=== PATIENT | male | born 1980 | race Caucasian/White ===

== ENCOUNTER → 2019-12-27 14:20 | Outpatient (BNVA) | payer MEDICARE, MEDICAID, SELFPAY | PROVIDERS: PCP Internal Medicine; Referring Provider Internal Medicine; Visit Provider Internal Medicine Endocrinology, Diabetes & Metabolism | DX: E66.01 Morbid (severe) obesity due to excess calories (principal); Z68.41 Body mass index [BMI] 40.0-44.9, adult; E23.0 Hypopituitarism; N62 Hypertrophy of breast; R73.03 Prediabetes; I10 Essential (primary) hypertension; E78.1 Pure hyperglyceridemia; Z71.3 Dietary counseling and surveillance | CPT/HCPCS: 99214 ==

== ENCOUNTER → 2020-01-04 09:52 | Outpatient (BNVA) | payer MEDICARE, MEDICAID, SELFPAY | PROVIDERS: PCP Internal Medicine; Referring Provider Internal Medicine; Visit Provider Orthopaedic Surgery | DX: M17.0 Bilateral primary osteoarthritis of knee (principal) | CPT/HCPCS: 20610; 99212; J1040 ==

== ENCOUNTER → 2020-01-23 10:26 | Outpatient (BNVA) | payer MEDICARE, MEDICAID, SELFPAY | PROVIDERS: PCP Internal Medicine; Referring Provider Internal Medicine; Visit Provider Dietitian, Registered | DX: Z76.89 Persons encountering health services in other specified circumstances (principal) ==

== ENCOUNTER 2020-02-26 06:35 | Emergency (ER) | payer MEDICARE, MEDICAID, SELFPAY ==
[2020-02-26 06:37] VITALS: BP 159/81; PULSE 108; RESP 18; TEMP 37.1; BMI 41.5
--- NOTE | 2020-02-26 06:42 | ED_ITS ---
HPI - Chest Pain General Chief Complaint: Back Pain/Injury Stated Complaint: rib injury Time Seen by Provider: 02/26/20 06:41 Source: patient Mode of arrival: ambulatory Limitations: no limitations History of Present Illness MD complaint: other (L sided rib pain after fall during snow storm) Onset (ago): day(s) (3) Timing of current episode: constant Prior episodes: No Onset: other (slipped during snow) Pain location: left chest Pain radiation: none Severity: moderate Quality: aching and sharp Relieving factors: nothing Exacerbating factors: inspiration and movement Context: trauma/injury Treatment prior to arrival: none Related Data Home Medications Medication Instructions Recorded Confirmed dolutegravir 50 mg tablet 50 mg PO DAILY 12/27/19 01/16/20 emtricitabine 200 mg-tenofovir 1 tab PO DAILY 12/27/19 01/16/20 alafenamide fumarate 25 mg tablet methadone 10 mg/mL oral concentrate 130 mg PO DAILY ml 12/27/19 01/16/20 Previous Rx's Medication Instructions Recorded hydrochlorothiazide 12.5 mg tablet 12.5 mg PO DAILY 30 Days #30 tab 12/27/19 omega-3 fatty acids 1,000 mg 1,000 mg PO BID 30 Days #60 cap 12/27/19 capsule gabapentin 300 mg capsule 300 mg PO BID #60 cap 01/20/20 sumatriptan succinate 50 mg tablet 50 mg PO Q2-4H PRN 30 Days #30 tab 01/20/20 acetaminophen 500 mg tablet 1,000 mg PO Q8H PRN #180 tab 02/01/20 diclofenac sodium 75 mg 75 mg PO BID PRN 15 Days #30 tab 02/13/20 tablet,delayed release amoxicillin-pot clavulanate 1 tab PO BID 7 Days #14 tab 02/26/20 [Augmentin] cyclobenzaprine 10 mg PO TID PRN #14 tab 02/26/20 ibuprofen 600 mg PO Q6H PRN #30 tab 02/26/20 lidocaine 1 patch TOPICAL DAILY PRN #10 ea 02/26/20 oxycodone 5 mg PO Q8H PRN #14 tab 02/26/20 Allergies Allergy/AdvReac Type Severity Reaction Status Date / Time RAISIN Allergy Severe SWELLING,HI Uncoded 02/26/20 06:51 VES Review of Systems Review of Systems: Constitutional : No Weight loss, No Fever, No Chills ENT/Mouth : No sore throat, No Rhinorrhea Eyes: No Eye Pain, No Swelling Cardiovascular : pos Chest Pain, no SOB, no Dyspnea on Exertion, No Orthopnea, No Edema, No Palpitations Respiratory : No Cough, No Sputum Gastrointestinal : pos Nausea, No Vomiting, No Diarrhea, No abdominal Pain, No Hematochezia, No Melena Genitourinary : No Dysuria, No Urinary Frequency Musculoskeletal : No joint pain, No Myalgias, No Joint Swelling Skin : No Skin Lesions, No rash Neuro : No Weakness, No Numbness, No Dizziness, No Headache Psych : No Anxiety/Panic, No Depression Heme/Lymph: No Bruising, No Lymphadenopathy Endocrine : No Polyuria, No Polydipsia All other systems reviewed and are negative [facility] Past Medical History Attestation statement: The following information was validated with the patient. Medical History Fatty liver disease, nonalcoholic Gynecomastia, male HIV positive Hypertension Hypertriglyceridemia Hypogonadotropic hypogonadism in male Morbid obesity Opioid dependence Osteoarthritis Prediabetes Surgical History History of ankle surgery History of arthroscopy of left knee History of open reduction and internal fixation (ORIF) procedure Hx of knee surgery Family History Family History Father HIV (human immunodeficiency virus infection) Mother Diabetes Glaucoma Social History Social History Smoking Status: Current every day smoker Tobacco Type: Cigarette Packs Per Day: 0.5 Cigarettes Per Day: 10.0 Years Smoked: 22 years Advance Directives: No Advance Directives Information Provided: Yes Physical Exam Vital Signs: Vital Signs: Last Vital Signs Temp 98.8 F 02/26/20 06:37 Pulse 108 H 02/26/20 06:37 Resp 18 02/26/20 06:37 BP 159/81 H 02/26/20 06:37 Body Mass Index 41.5 Appearance: Alert. Oriented X3. No acute distress. Eyes: Pupils equal, round and reactive to light. ENT: Pharynx normal. Neck: Normal inspection. Neck supple. CVS: Normal heart rate and rhythm. Pulses normal. Chest: ttp along L lateral posterior ribs no trauma seen Respiratory: No respiratory distress. Breath sounds normal. Abdomen: Soft and nontender. obese no trauma seen Back: ttp left lower back above hip line Skin: Skin warm and dry. Normal skin color. Normal skin turgor. Extremities: No lower extremity edema. No calf ttp Neuro: Oriented X 3. No motor deficit. No sensory deficit. Course Course Course Narrative: 3 left rib fractures, mild atelectasis will add on pain medications and start on augmentin for possible start of infiltrate MDM - Chest Pain MDM Narrative Medical decision making narrative: 39 yo male not toxic no resp distress here with L rib pain following slip in snow also some mild L lower back pain no GI/ issues, at this time will need rib xray, lumbar spine films, lidocaine patch and supportive medications, dispo per results and findings. Discharge Plan Discharge Clinical Impression: Contusion of rib on left side Qualifiers: Encounter type: initial encounter Qualified Code(s): S20.212A - Contusion of left front wall of thorax, initial encounter Fracture of rib of left side Qualifiers: Encounter type: initial encounter Rib fracture type: multiple ribs Fracture type: closed Qualified Code(s): S22.42XA - Multiple fractures of ribs, left side, initial encounter for closed fracture Patient Disposition: Home, Self-Care Instructions: Rib Fracture (ED), Rib Contusion (ED) Additional Instructions: return to ED for any worsening symptoms or concerns take deep breaths at this time despite pain there is a small area on left lung with fluid will start on antibiotics so pneumonia does not develop Prescriptions: New cyclobenzaprine 10 mg tablet 10 mg PO TID PRN (Reason: muscle spasm) Qty: 14 RF: 0 lidocaine 4 % adhesive patch,medicated 1 patch topical DAILY PRN (Reason: pain) Qty: 10 RF: 0 ibuprofen 600 mg tablet 600 mg PO Q6H PRN (Reason: pain) Qty: 30 RF: 0 amoxicillin-pot clavulanate [Augmentin] 875-125 mg tablet 1 tab PO BID 7 Days Qty: 14 RF: 0 oxycodone 5 mg tablet 5 mg PO Q8H PRN (Reason: pain) Qty: 14 RF: 0 No Action sumatriptan succinate 50 mg tablet 50 mg PO Q2-4H PRN (Reason: migraine headache) 30 Days Qty: 30 RF: 0 gabapentin 300 mg capsule 300 mg PO BID Qty: 60 RF: 0 acetaminophen 500 mg tablet 1,000 mg PO Q8H PRN (Reason: fever or pain) Qty: 180 RF: 1 diclofenac sodium 75 mg tablet,delayed release (DR/EC) 75 mg PO BID PRN (Reason: pain) 15 Days Qty: 30 RF: 0 Tivicay 50 mg tablet 50 mg PO DAILY RF: 0 Descovy 200-25 mg tablet 1 tab PO DAILY RF: 0 methadone 10 mg/mL concentrate 130 mg PO DAILY RF: 0 hydrochlorothiazide 12.5 mg tablet 12.5 mg PO DAILY 30 Days Qty: 30 RF: 4 omega-3 fatty acids 1,000 mg capsule 1,000 mg PO BID 30 Days Qty: 60 RF: 4 Referrals: Hiram Romero MD [Primary Care Provider] - 3 days (if not better) Stand Alone Forms: Work/School Release
--- NOTE | 2020-02-26 06:52 | XR_ITS ---
EXAMINATION: XR RIBS, LEFT CLINICAL INFORMATION: Fall pain COMPARISON: No prior exam available. TECHNIQUE: Chest frontal, 5 view left rib series. FINDINGS: RIBS: Mildly displaced fractures of the left lateral seventh, eighth and ninth ribs. LUNGS AND ANSHU: Mild opacity probably infiltrate or atelectasis at left lung base adjacent to the fractures. PLEURA: Normal. Costophrenic angles are sharp, no pneumothorax. HEART: The heart is normal in size. MEDIASTINUM: The mediastinum is within normal limits.. XR/XR ribs LT min 3V w CXR1V IMPRESSION: 1. Minimally displaced fracture of the anterior lateral aspect of the left seventh, eighth and ninth rib. 2. Adjacent mild infiltrate and/or atelectasis left lung base. 3. No pneumothorax.
--- NOTE | 2020-02-26 06:52 | XR_ITS ---
EXAMINATION: XR LUMBAR SPINE CLINICAL INFORMATION: Fall COMPARISON: None TECHNIQUE: Frontal lateral and coned-down L5-S1 frontal lateral FINDINGS: Five [id number] lumbar vertebrae were identified maintaining normal height and alignments. Narrowing of intervertebral disc spaces suggest underlying degenerative disc disease. Paravertebral soft tissues are unremarkable. There are radiolucencies, most likely superimposed bowel gas.. No radiographic evidence of osteolytic or osteoblastic lesions. XR/XR lumbar spine 2-3V IMPRESSION: No fracture. Bone alignments remain satisfactory. Narrowing of intervertebral disc spaces suggest underlying degenerative disc disease. .
[2020-02-26] MEDS: diazePAM 5 MG TABLET PO (07:32)
[2020-02-26] MEDS: Lidocaine 4 % Patch ADH..PATCH 1 PATCH TRANSDERMA ×2 (07:32→07:42)
== END 2020-02-26 08:08 | disposition home or self-care (01) ==
PROVIDERS: Emergency Provider Emergency Medicine; PCP Internal Medicine
DX: S22.32XA Fracture of one rib, left side, initial encounter for closed fracture (principal); S20.212A Contusion of left front wall of thorax, initial encounter; W00.0XXA Fall on same level due to ice and snow, initial encounter; I10 Essential (primary) hypertension; F11.20 Opioid dependence, uncomplicated; Y93.9 Activity, unspecified; Y92.017 Garden or yard in single-family (private) house as the place of occurrence of the external cause; Y99.9 Unspecified external cause status
CPT/HCPCS: 71101; 72100; 99283

== ENCOUNTER 2020-03-16 16:03 | Outpatient (REF) | payer OTHER, MEDICAID, SELFPAY | END 2020-03-16 16:04 | disposition home or self-care (01) | LOC: HO.LAB 16:03 | PROVIDERS: Visit Provider Internal Medicine | DX: Z20.822 Contact with and (suspected) exposure to COVID-19 (principal) | CPT/HCPCS: 36415; C9803; U0003 ==

== ENCOUNTER → 2020-04-20 13:01 | Outpatient (BNVA) | payer OTHER, MEDICARE, SELFPAY | PROVIDERS: PCP Internal Medicine; Visit Provider Nurse Practitioner | DX: Z76.89 Persons encountering health services in other specified circumstances (principal) | CPT/HCPCS: Q3014 ==

== ENCOUNTER 2020-06-06 10:04 | Outpatient (REF) | payer OTHER, SELFPAY ==
--- NOTE | ~2020-06-06 | US_ITS ---
EXAMINATION: US COMPLETE ABDOMEN WITH LIVER ELASTOGRAPHY CLINICAL INFORMATION: Viral hepatitis C COMPARISON: Previous exam most recent September 2019 TECHNIQUE: Real-time imaging of the abdominal viscera. Noninvasive ultrasound liver fibrosis assessment is performed using [employer] ElastPQ point quantification shear wave elastography (pSWE) with a C5-2 MHz transducer. Multiple elastography samples are obtained. FINDINGS: PANCREAS: The visualized pancreatic head and body are normal in appearance. The remainder of the pancreas is obscured from visualization by the overlying bowel gas. ABDOMINAL AORTA: The proximal, middle, and distal aortic segments are normal in caliber. INFERIOR VENA CAVA: Visualized portions are normal. LIVER: Liver echotexture is increased. The liver is slightly enlarged. Liver contour is normal. No focal liver lesion or biliary duct dilatation is seen.. The right lobe measures 21 cm in length. The left lobe measures 16 cm in length. Portal flow is maintained portal vein is patent with appropriate hepatopedal flow. Shear wave liver elastography median stiffness is 1.35 m/s (reference: normal median stiffness is 1.3 m/s or less). IQR/median stiffness to assess sampling precision is 0.3 (reference: good quality data set is IQR/median stiffness of 0.15 or less). GALLBLADDER: There are small gallstones in the gallbladder. The gallbladder wall is normal-appearing. The gallbladder is normal in size. COMMON BILE DUCT: Normal in caliber measuring 0.5, 0.8 cm in diameter. RIGHT KIDNEY: Normal. No hydronephrosis. No renal calculi or focal parenchymal lesions. The kidney measures 11.5 cm in maximum dimension. LEFT KIDNEY: Normal. No hydronephrosis. No renal calculi or focal parenchymal lesions. The kidney measures 12.1 cm in maximum dimension. SPLEEN: Spleen is slightly enlarged. The spleen measures 13 cm in maximum dimension. FREE FLUID: None. US/US abdomen comp w elastography IMPRESSION: 1. Impression: Enlarged echogenic liver similar to previous exam. Gallstones. Prominent spleen. Limited visualization of the tail the pancreas. 2. Liver elastography: Limited due to sampling error. Liver stiffness is minimally elevated but rules out compensated advanced chronic liver disease. REFERENCE: Society of Radiologists in Ultrasound Liver Stiffness Thresholds (2020): LIVER STIFFNESS THRESHOLDS: *Liver Stiffness equal or less than 1.3 m/s: High probability of being normal. *Liver Stiffness less than 1.7 m/s: In the absence of other known clinical signs, rules out compensated advanced chronic liver disease. *Liver Stiffness 1.7-2.1 m/s: Suggestive of compensated advanced chronic liver disease but need further test for confirmation. *Liver Stiffness over 2.1 m/s: Rules in compensated advanced chronic liver disease. *Liver Stiffness over 2.4 m/s: Suggestive of clinically significant portal hypertension. QUALITY OF DATA SET: *IQR/Median value equal or less than 0.15 implies a quality data set. *IQR/Median value over 0.15 implies a poor quality data set. SIGNIFICANT CHANGE FROM PRIOR EXAM: Significant change if liver stiffness measurement is 10% or greater from prior exam. OTHER CONSIDERATIONS: The stage of liver fibrosis may be overestimated in the setting of acute hepatitis, liver inflammation, elevated liver function tests, hepatic vascular congestion, obstructive cholestasis, non-fasting state, and infiltrative diseases such as amyloidosis and lymphoma. In some patients with NAFLD, the liver stiffness thresholds for compensated advanced chronic liver disease may be lower. In causes other than viral hepatitis and NAFLD, liver stiffness thresholds are not well established.
--- NOTE | 2021-05-19 14:44 | PM.DS ---
DS: Providers Provider Date of Service: 07/03/20 Attending physician on discharge: Mark Damian Discharging clinician: Mark Damian DS: Transfer Hospital Acceptance Reason for Transfer: Advanced surgical care Name of Facility: [facility] Accepting Provider: Dr. Tomlinson DS: Summary Hospital Course Hospital Course: TRANSFER SUMMARY DISCHARGE DIAGNOSES: 1. DKA. 2. Hypertriglyceridemia. 3. Pancreatitis. 4. MATT. 5. Metabolic acidosis. Mr. Lama is a 40-year-old male with a past medical history of? prediabetes, HIV, hepatitis-C,? hypertension, hypertriglyceridemia, opiate dependence, NENO, and morbid obesity.? He was BIBA to the [facility] on 07/02/2020 bec of nausea and vomiting for the prior 2-3 days, and altered mental status that morning. In the emergency room, the patient was noted to be lethargic and delirious, tachypneic with Kussmaul respirations.? He was hypothermic to 92?.? His abdomen was soft, nondistended, moderately tender, but no guarding or rebound. Labs were notable for WBC 21, Na 118, K 54, bicarb <5, BUN/creat 25/2.5, gluc 1074, Ca 7.9, unremarkable LFTs, alk phos 155, alb 3.3. lipase 165, Triglycerides.? VBG showed pH 6.91, pCO2 9, BE -28.? COVID negative The patient was vol resuscitated, given insulin and a dose of Zosyn, and admitted to ICU, where vol resusc and the insulin drip continued.? Over the day, his glucose levels and bicarb corrected very slowly.? That night, his bicarb was only up to 7, his POC was down to the 200 level still on insulin drip at 10u/hr.? BUN/creat were down to 23/1.1.? He was still very tachypneic.? His abdomen became more distended and tender.? Noncontrast CT abdomen at 2am the following morning showed diffuse small bowel wall thickening, w diffuse stranding of the mesenteric fat.? Small amount of free fluid.? The patient was started on a bicarb drip and meropenem. That morning, he was more tachypneic, and was therefore intubated.? He was still tachypneic on the ventilator, despite high dose fentanyl and propofol drips.? Post-intubation, heart rate was 112, blood pressure is 135/75.? On pressure control at a rate of 28, pressures 22/12, 70%, respiratory rate was 43, tidal volume 430 cc, minute volume 19 L, peak inspiratory pressure 35, endtidal CO2 21, and sat 91%.? His temperature was 101.1 degrees.? No jugular venous distention with the head of the bed at 30 degrees.? Chest was clear to auscultation, with a normal expiratory phase heart rate and rhythm were regular, with normal-sounding S1 and S2, with no murmur or gallops.? The abdomen was significantly distended, a bit firm, and very tender.? Definite guarding, even through the propofol and fentanyl.? No bowel sounds.? The OG tube was draining green bilious fluid with a few coffee-grounds.? He had no peripheral edema. LABORATORY DATA:? White count that morning was 6.7, hemoglobin 12.5 (down from 15.8 on admission), platelet count 136 (down from 312).? At 11:00, sodium was 146, potassium 2.5, chloride 113, bicarb 18, BUN and creatinine 19/1.3, glucose 235, calcium 7.9.? Last lipase at 05:00 was 483, triglycerides were 794, albumin was 3.0, C reactive protein was 18, and procalcitonin was 4.6. The patient was seen by Dr. Miller, our general surgeon, who felt that there was no indication for surgery at that time, and recommended a follow-up CT scan at 24 hours if necessary. Given that the abdomen was increasingly distended and tender, it was thought he might need surgical exploration.? The patient was discussed with Dr. Tomlinson from [facility] surgery, and the patient was transferred there to his care. Time Spent with Patient Time attestation: Total time spent providing and/or coordinating discharge services: Discharge coordination time: Less than 30 minutes Quality: Stroke Does the patient have a stroke diagnosis?: No DS: Data Data Completed and Pending Completed studies during hospitalization [Text1]: Procedures Insertion of Endotracheal Airway into Trachea, Via Natural or Artificial Opening Endoscopic (07/02/20) Insertion of Infusion Device into Superior Vena Cava, Percutaneous Approach (07/02/20) Respiratory Ventilation, Less than 24 Consecutive Hours (07/02/20) Discharge Plan Discharge Patient Disposition: Home, Self-Care Discharge Medications: No Action lidocaine 4 % cream 1 appl topical TID PRN (Reason: pain) 30 Days Qty: 50 2RF Rx Instructions: as needed Externally Three times a day (DME) blood-glucose meter [FreeStyle Lite Meter] Kit See Rx Instructions .ROUTE .MEDSUPPLY Qty: 1 0RF Rx Instructions: TEST 2 TIMES DAILY hydrochlorothiazide 12.5 mg tablet 12.5 mg PO DAILY 30 Days Qty: 30 1RF FreeStyle Lite Strips Strip 1 strip miscellaneous BID Qty: 100 0RF lancets [FreeStyle Lancets] 28 gauge misc 28 gauge topical BID Qty: 100 0RF sertraline 100 mg tablet 100 mg PO DAILY Qty: 30 2RF diclofenac sodium 75 mg tablet,delayed release (DR/EC) 75 mg PO BID PRN (Reason: for pain) Qty: 30 2RF gabapentin 300 mg capsule 300 mg PO TID Qty: 90 2RF Tivicay 50 mg tablet 1 tab PO DAILY 0RF Descovy 200-25 mg tablet 1 tab PO DAILY 0RF Discharge Date/Time: 06/06/20 10:05
== END 2020-06-06 10:05 | disposition home or self-care (01) ==
LOC: HO.US 10:04
PROVIDERS: Visit Provider Nurse Practitioner
DX: B19.20 Unspecified viral hepatitis C without hepatic coma (principal); K75.81 Nonalcoholic steatohepatitis (NASH)
CPT/HCPCS: 76705; 76981

== ENCOUNTER → 2020-06-18 10:48 | Outpatient (BNVA) | payer OTHER, SELFPAY | PROVIDERS: PCP Internal Medicine; Visit Provider Nurse Practitioner ==

== ENCOUNTER 2020-07-02 03:17 | Inpatient (IN) | payer OTHER, SELFPAY ==
[2020-07-02] VITALS (24 sets, daily range): BP systolic 90–115; BP diastolic 36–69; PULSE 82–110; RESP 15–40; TEMP 33.5–38.1; O2SAT 94–100; BMI 36.8; BMI 37.3
--- NOTE | ~2020-07-02 | XR_ITS ---
EXAMINATION: XR CHEST CLINICAL INFORMATION: tube placement COMPARISON: Chest x-ray earlier this morning at 1:42 AM TECHNIQUE: Frontal view of the chest was obtained. FINDINGS: Endotracheal tube terminates approximately 1.3 cm above the level of the alisha. Enteric tube terminates below level of the diaphragm. Right-sided jugular catheter is able in position. Patchy bilateral airspace disease is stable, most prominent within the right lung base. No pneumothorax is present. No pleural effusion. XR/XR chest 1V IMPRESSION: -Endotracheal tube terminates approximately 1.3 cm above the level of the alisha. Retracting approximately 2.5 to 3 cm is recommended. -Stable patchy bilateral airspace disease.
--- NOTE | ~2020-07-02 | CT_ITS ---
EXAMINATION: CT ABDOMEN AND PELVIS WITHOUT CONTRAST CLINICAL INFORMATION: Question ischemic bowel COMPARISON: None TECHNIQUE: Multidetector volumetric imaging was performed from the superior aspect of the liver through the pubic symphysis. Sagittal and coronal reformatted images were obtained on the technologist's workstation. This CT examination was performed using dose optimization techniques as appropriate, variously including the following: *Automated exposure control *Adjustment of mA and/or kV according to patient size (this includes techniques or standardized protocols for targeted exams where dose is matched to indication/reason for exam; i.e. extremities or head) *Use of iterative reconstruction technique DLP: 1080 mGy-cm FINDINGS: LUNG BASES: Patchy airspace opacities are seen at both lung bases, corresponding to the appearance on recent prior chest radiograph. LIVER, GALLBLADDER, AND BILIARY TREE: The liver is normal in size, shape, and attenuation. No focal hepatic lesion or biliary ductal dilatation is present. Small volume ascites. Cholelithiasis. No gallbladder wall thickening or pericholecystic fluid. PANCREAS: Unremarkable. SPLEEN: Unremarkable. ADRENAL GLANDS: Unremarkable. KIDNEYS AND URETERS: The kidneys are normal in size, shape, and attenuation. No hydronephrosis, hydroureter, or calculi seen. No perinephric stranding. BLADDER: Decompressed with Archuleta catheter in place. GASTROINTESTINAL TRACT: Motion limits the evaluation of the bowel. The stomach is unremarkable. Normal caliber small bowel. There is wall thickening of the jejunum. Mild stranding of the fat in this region. Fecalization of the distal ileum noted. There is also mild wall thickening with adjacent stranding of portions of the ileum, for instance series 7 image 33 in the right abdomen. Much of the colon is decompressed. Small amount of free fluid. No free air. No pneumatosis. Normal appendix. ABDOMINAL WALL: No significant hernia is appreciated. LYMPH NODES: Normal. VASCULAR: The aorta is normal in caliber. No significant atherosclerotic calcific disease. PELVIC VISCERA: The prostate and seminal vesicles are unremarkable. OSSEOUS STRUCTURES: Unremarkable. CT/CT abdomen pelvis wo con IMPRESSION: Motion limited evaluation. There does appear to be wall thickening of the small bowel fairly diffusely. There is diffuse stranding of the mesenteric fat. Small amount of free fluid. This appearance is highly suspicious for enteritis, although the etiology is nonspecific. This could be infectious, inflammatory, or ischemic. Of note, no significant vascular disease, aching ischemic less likely, though this depends on the clinical scenario. Patchy airspace opacities at both lung bases. This corresponds to the appearance on recent radiograph.
--- NOTE | ~2020-07-02 | XR_ITS ---
EXAMINATION: XR CHEST CLINICAL INFORMATION: Central line placement verification. COMPARISON: 02/26/2020 TECHNIQUE: Frontal view of the chest was obtained. FINDINGS: Right internal jugular central venous catheter terminates near the cavoatrial junction. Cardiac leads overlie the chest. The lungs are well expanded. Bronchial wall thickening with patchy opacities bilaterally, greatest at the lung bases. No pleural effusion or pneumothorax. The cardiomediastinal silhouette is within normal limits. XR/XR chest 1V IMPRESSION: Right internal jugular central venous catheter terminates near the cavoatrial junction. No pneumothorax. Patchy bilateral airspace opacities greatest at the lung bases associated with bronchial wall thickening. This could be infectious or inflammatory.
--- NOTE | 2020-07-02 03:19 | ECG_ITS ---
Test Reason : DKA Blood Pressure : / mmHG Vent. Rate : 085 BPM Atrial Rate : 085 BPM P-R Int : 166 ms QRS Dur : 086 ms QT Int : 450 ms P-R-T Axes : 077 052 047 degrees QTc Int : 535 ms Normal sinus rhythm Biatrial enlargement Prolonged QT Abnormal ECG When compared with ECG of 28-AUG-2014 16:13, QT has lengthened Referred By: Sabiha Clements Electronically Signed By:SONNY BOYD MD
--- NOTE | 2020-07-02 03:21 | ED_ITS ---
HPI - General Adult General Chief complaint: General Medical Stated complaint: HYPERGLYCEMIA N/V/D Time Seen by Provider: 07/02/20 03:19 Source: patient and EMS Mode of arrival: EMS History of Present Illness HPI narrative: 40-year-old male previously caring diagnosis of prediabetes being brought in by EMS for 2-3 days of nausea vomiting and diarrhea. Family otherwise poor historian and on initial arrival patient groaning with kussmal b reathing. Otherwise, limited collateral information. Related Data Home Medications Medication Instructions Recorded Confirmed acetaminophen 500 mg PO QID PRN MDD 3000 07/02/20 07/02/20 diclofenac sodium 1 tab PO BID 07/02/20 07/02/20 dolutegravir [Tivicay] 1 tab PO DAILY 07/02/20 07/02/20 emtricitabine-tenofovir alafen 1 tab PO DAILY 07/02/20 07/02/20 [Descovy] gabapentin 300 mg PO DAILY 07/02/20 07/02/20 hydrochlorothiazide 1 tab PO DAILY 07/02/20 07/02/20 lidocaine 1 appl TOPICAL ONCE PRN 07/02/20 07/02/20 sertraline 1 tab PO DAILY 07/02/20 07/02/20 sumatriptan succinate 50 mg PO DAILY PRN 07/02/20 07/02/20 Allergies Allergy/AdvReac Type Severity Reaction Status Date / Time RAISIN Allergy Severe SWELLING,HI Uncoded 06/11/20 18:47 VES Review of Systems Review of Systems: Yes Unobtainable due to mental condition PMFSH Past Medical History Source: nursing notes reviewed Medical History Anxiety and depression Benign essential hypertension Encounter for Medicare annual wellness exam Fracture of multiple ribs of left side Gynecomastia, male HIV positive Hypertension Hypertriglyceridemia Hypogonadotropic hypogonadism in male Morbid obesity Muscle twitching Obesity (BMI 30-39.9) Obstructive sleep apnea Opioid dependence Osteoarthritis Prediabetes Surgical History History of ankle surgery History of arthroscopy of left knee History of open reduction and internal fixation (ORIF) procedure Hx of knee surgery Family History Family History Father HIV (human immunodeficiency virus infection) Mother Diabetes Glaucoma Social History Social History Household Members: Spouse and Children Alcohol intake: current Alcohol intake frequency: 0-2 drinks per day Smoking Status: Current every day smoker Tobacco Type: Cigarette Packs Per Day: 0.5 Cigarettes Per Day: 10.0 Years Smoked: 22 years Smoked in Last 30 Days: Yes Use of substances other than those prescribed or required for medical reasons: Refusing to respond Any prior treatment program specific to substance use: No Advance Directives: No Advance Directives Information Provided: No Current occupational status: disabled Physical Exam Vital Signs: Vital Signs: Last Vital Signs Temp 92.3 F L 07/02/20 04:45 Pulse 82 07/02/20 04:45 Resp 28 H 07/02/20 04:45 BP 112/52 L 07/02/20 04:45 Pulse Ox 98 07/02/20 04:45 Body Mass Index 36.8 VITAL SIGNS: Reviewed. GENERAL: Chronically ill, moderate distress. HEAD: Normocephalic/atraumatic EYES: PERRLA, EOMI OROPHARYNX: no oral lesions noted, posterior pharynx clear, dry mucosa NECK: Supple, no adenopathy LUNGS: Normal breath sounds, tachypnea (kussmal). SpO2<98> CARDIOVASCULAR: Regular rate and rhythm without noted murmurs ABDOMEN: Soft, non-tender, non-distended hypoactive bowel sounds. MUSCULOSKELETAL: No tenderness, deformities, or effusions noted on gross inspection. EXTREMITIES: No cyanosis, clubbing or edema. SKIN: Inspection of the skin reveals no rashes NEUROLOGIC: Lethargic Course Course Course Narrative: 40-year-old male with history and clinical presentation consistent with DKA and will evaluate for possible infectious source. - Patient received total of 4 L of normal saline, IV Push bicarb for pH-6.9, and on receipt of potassium levels patient received calcium gluconate, 10 units regular insulin IVP followed by insulin drip. - on review of all investigations although leukocytosis is likely secondary to profound dehydration patient received empiric antibiotics, and although lactic acid is noted this again is likely secondary to DKA as opposed to infectious. On re-evaluation patient is noted to have improved mentation and is verbally communicating with nursing staff as well as myself. In addition, patient's respiratory rate has significantly improved. This case was discussed with the stationary fireman who is accepting admission. Medical Decision Making Lab Data Result diagrams: 07/02/20 03:49 07/02/20 03:48 Labs: Lab Results 07/02/20 07/02/20 07/02/20 Range/Units 03:48 03:49 03:49 WBC 21.1 H (4.8-10.8) X10*3/uL RBC 4.75 (4.60-5.80) X10*6/uL Hgb 15.8 (14.0-18.0) g/dl Hct 49.6 (42-52) % MCV 104.4 H (80-98) fL MCH 33.3 H (27.0-33.0) pg MCHC 31.9 (31.0-36.0) g/dl RDW 12.5 (11.0-16.0) % Plt Count 312 (160-400) X10*3/uL MPV 11.5 (9.4-12.4) fL Immature Gran % (Auto) Cancelled Neut % (Auto) Cancelled Lymph % (Auto) Cancelled [place] % (Auto) Cancelled Eos % (Auto) Cancelled Baso % (Auto) Cancelled Lymph # (Auto) Cancelled [place] # (Auto) Cancelled Eos # (Auto) Cancelled Baso # (Auto) Cancelled Abs Immat Gran (auto) Cancelled Absolute Neuts (auto) Cancelled Absolute Nucleated RBC 0.000 (0.0-0.012) X10*3/uL Nucleated RBC % (auto) 0.0 (0.0-0.2) /100WBC Neutrophils % (Manual) 83 H (45-73) % Band Neutrophils % 8 H (3-5) % Lymphocytes % (Manual) 4 L (20-40) % Monocytes % (Manual) 5 (2-11) % Abs Neuts (Manual) 19.2 H (2.2-7.9) X10*3/uL Lymphocytes # (Manual) 0.8 (0.6-4.8) X10*3/uL Monocytes # (Manual) 1.1 (0.0-1.2) X10*3/uL Platelet Estimate NORMAL (NORMAL) Plt Morphology Comment NORMAL RBC Morphology NOTED Macrocytosis 1+ (5-14) /OIF VBG pH (7.32-7.43) VBG pCO2 mmHg VBG pO2 mmHg VBG HCO3 (22-26) mmol/L VBG O2 Saturation % VBG Base Excess mmol/L Sodium 118 L* (135-145) mmol/L Potassium 5.4 H (3.3-5.1) mmol/L Chloride 88 L (96-108) mmol/L Carbon Dioxide < 5 L* (22-29) mmol/L Anion Gap 30 H (12-20) BUN 25 H (9-16) mg/dL Creatinine 2.48 H (0.5-1.4) mg/dL Estim Creat Clear Calc 44.6 Estimated GFR 29 Random Glucose 1074 H* (60-115) mg/dL Lactic Acid (0.5-2.0) mmol/L Calcium 7.9 L (8.4-10.2) mg/dL Magnesium 2.6 (1.6-2.6) mg/dL Total Bilirubin 0.8 (0.0-1.0) mg/dL AST 28 (5-37) U/L ALT 44 H (0-40) U/L Alkaline Phosphatase 155 H (39-117) U/L Total Protein 7.4 (6.5-8.0) g/dL Albumin 3.3 L (3.5-5.0) g/dL Lipase 165 H (8-78) U/L Urine Color Urine Appearance Urine pH (5.0-8.0) Ur Specific [place] (1.005-1.025) Urine Protein (NEG-TRACE) MG/DL Urine Glucose (UA) (NEG) MG/DL Urine Ketones (NEG) MG/DL Urine Blood (NEG) Urine Nitrite (NEG) Ur Leukocyte Esterase (NEG) Urine RBC (0) /HPF Urine WBC (0-4) /HPF Ur Squamous Epith Cells /LPF Amorphous Sediment /LPF Urine Bacteria /LPF Granular Casts /LPF Urine Mucus /LPF Urine Opiates Screen (Not Detect) Ur Barbiturates Screen (Not Detect) Ur Phencyclidine Scrn (Not Detect) Ur Amphetamines Screen (Not Detect) U Benzodiazepines Scrn (Not Detect) Urine Cocaine Screen (Not Detect) U Marijuana (THC) Screen (Not Detect) Acetone, Qual Moderate H (Negative) COVID-19 ([facility]KOLAS) Negative (Negative) COVID-19 Clin Com See Note 07/02/20 07/02/20 07/02/20 Range/Units 03:51 04:04 04:37 WBC (4.8-10.8) X10*3/uL RBC (4.60-5.80) X10*6/uL Hgb (14.0-18.0) g/dl Hct (42-52) % MCV (80-98) fL MCH (27.0-33.0) pg MCHC (31.0-36.0) g/dl RDW (11.0-16.0) % Plt Count (160-400) X10*3/uL MPV (9.4-12.4) fL Immature Gran % (Auto) Neut % (Auto) Lymph % (Auto) [place] % (Auto) Eos % (Auto) Baso % (Auto) Lymph # (Auto) [place] # (Auto) Eos # (Auto) Baso # (Auto) Abs Immat Gran (auto) Absolute Neuts (auto) Absolute Nucleated RBC (0.0-0.012) X10*3/uL Nucleated RBC % (auto) (0.0-0.2) /100WBC Neutrophils % (Manual) (45-73) % Band Neutrophils % (3-5) % Lymphocytes % (Manual) (20-40) % Monocytes % (Manual) (2-11) % Abs Neuts (Manual) (2.2-7.9) X10*3/uL Lymphocytes # (Manual) (0.6-4.8) X10*3/uL Monocytes # (Manual) (0.0-1.2) X10*3/uL Platelet Estimate (NORMAL) Plt Morphology Comment RBC Morphology Macrocytosis /OIF VBG pH 6.91 L* (7.32-7.43) VBG pCO2 9 mmHg VBG pO2 137 mmHg VBG HCO3 2 L (22-26) mmol/L VBG O2 Saturation 98.0 % VBG Base Excess -28.8 mmol/L Sodium (135-145) mmol/L Potassium (3.3-5.1) mmol/L Chloride (96-108) mmol/L Carbon Dioxide (22-29) mmol/L Anion Gap (12-20) BUN (9-16) mg/dL Creatinine (0.5-1.4) mg/dL Estim Creat Clear Calc Estimated GFR Random Glucose (60-115) mg/dL Lactic Acid 4.1 H* (0.5-2.0) mmol/L Calcium (8.4-10.2) mg/dL Magnesium (1.6-2.6) mg/dL Total Bilirubin (0.0-1.0) mg/dL AST (5-37) U/L ALT (0-40) U/L Alkaline Phosphatase (39-117) U/L Total Protein (6.5-8.0) g/dL Albumin (3.5-5.0) g/dL Lipase (8-78) U/L Urine Color YELLOW Urine Appearance CLEAR Urine pH 5.5 (5.0-8.0) Ur Specific [place] 1.015 (1.005-1.025) Urine Protein 1+ H (NEG-TRACE) MG/DL Urine Glucose (UA) >=1000 H (NEG) MG/DL Urine Ketones 40 (NEG) MG/DL Urine Blood 2+ H (NEG) Urine Nitrite NEG (NEG) Ur Leukocyte Esterase NEG (NEG) Urine RBC 0-2 (0) /HPF Urine WBC 0-2 (0-4) /HPF Ur Squamous Epith Cells 1+ /LPF Amorphous Sediment 2+ /LPF Urine Bacteria NONE /LPF Granular Casts 0-2 /LPF Urine Mucus 1+ /LPF Urine Opiates Screen (Not Detect) Ur Barbiturates Screen (Not Detect) Ur Phencyclidine Scrn (Not Detect) Ur Amphetamines Screen (Not Detect) U Benzodiazepines Scrn (Not Detect) Urine Cocaine Screen (Not Detect) U Marijuana (THC) Screen (Not Detect) Acetone, Qual (Negative) COVID-19 ([facility]OLAS) (Negative) COVID-19 Clin Com 07/02/20 Range/Units 04:37 WBC (4.8-10.8) X10*3/uL RBC (4.60-5.80) X10*6/uL Hgb (14.0-18.0) g/dl Hct (42-52) % MCV (80-98) fL MCH (27.0-33.0) pg MCHC (31.0-36.0) g/dl RDW (11.0-16.0) % Plt Count (160-400) X10*3/uL MPV (9.4-12.4) fL Immature Gran % (Auto) Neut % (Auto) Lymph % (Auto) [place] % (Auto) Eos % (Auto) Baso % (Auto) Lymph # (Auto) [place] # (Auto) Eos # (Auto) Baso # (Auto) Abs Immat Gran (auto) Absolute Neuts (auto) Absolute Nucleated RBC (0.0-0.012) X10*3/uL Nucleated RBC % (auto) (0.0-0.2) /100WBC Neutrophils % (Manual) (45-73) % Band Neutrophils % (3-5) % Lymphocytes % (Manual) (20-40) % Monocytes % (Manual) (2-11) % Abs Neuts (Manual) (2.2-7.9) X10*3/uL Lymphocytes # (Manual) (0.6-4.8) X10*3/uL Monocytes # (Manual) (0.0-1.2) X10*3/uL Platelet Estimate (NORMAL) Plt Morphology Comment RBC Morphology Macrocytosis /OIF VBG pH (7.32-7.43) VBG pCO2 mmHg VBG pO2 mmHg VBG HCO3 (22-26) mmol/L VBG O2 Saturation % VBG Base Excess mmol/L Sodium (135-145) mmol/L Potassium (3.3-5.1) mmol/L Chloride (96-108) mmol/L Carbon Dioxide (22-29) mmol/L Anion Gap (12-20) BUN (9-16) mg/dL Creatinine (0.5-1.4) mg/dL Estim Creat Clear Calc Estimated GFR Random Glucose (60-115) mg/dL Lactic Acid (0.5-2.0) mmol/L Calcium (8.4-10.2) mg/dL Magnesium (1.6-2.6) mg/dL Total Bilirubin (0.0-1.0) mg/dL AST (5-37) U/L ALT (0-40) U/L Alkaline Phosphatase (39-117) U/L Total Protein (6.5-8.0) g/dL Albumin (3.5-5.0) g/dL Lipase (8-78) U/L Urine Color Urine Appearance Urine pH (5.0-8.0) Ur Specific [place] (1.005-1.025) Urine Protein (NEG-TRACE) MG/DL Urine Glucose (UA) (NEG) MG/DL Urine Ketones (NEG) MG/DL Urine Blood (NEG) Urine Nitrite (NEG) Ur Leukocyte Esterase (NEG) Urine RBC (0) /HPF Urine WBC (0-4) /HPF Ur Squamous Epith Cells /LPF Amorphous Sediment /LPF Urine Bacteria /LPF Granular Casts /LPF Urine Mucus /LPF Urine Opiates Screen POSITIVE H (Not Detect) Ur Barbiturates Screen Not Detected (Not Detect) Ur Phencyclidine Scrn POSITIVE H (Not Detect) Ur Amphetamines Screen Not Detected (Not Detect) U Benzodiazepines Scrn Not Detected (Not Detect) Urine Cocaine Screen Not Detected (Not Detect) U Marijuana (THC) Screen Not Detected (Not Detect) Acetone, Qual (Negative) COVID-19 ([facility]OLAS) (Negative) COVID-19 Clin Com ECG Data Attestation: I personally reviewed and interpreted this ECG as follows: Prior ECG tracings: available for review (08/28/2014 peaked T-waves) Interpretation: Normal sinus rhythm, HR -85, no evidence of acute ischemia, QTC prolonged-535, NC/QRS are within normal limits. Discharge Plan Discharge Clinical Impression: DKA (diabetic ketoacidoses), MATT (acute kidney injury) Patient Disposition: Admitted As Inpatient
[2020-07-02] MEDS: 0.9 % Sodium Chloride 2,000 ML 999 ML IV ×2 (03:51→04:23)
[2020-07-02 03:58] LABS: Hematocrit 49.6 % (42-52); Hemoglobin 15.8 g/dl (14.0-18.0); Mean Corpuscular HGB Conc 31.9 g/dl (31.0-36.0); Mean Corpuscular Hemoglobin 33.3 pg (27.0-33.0); Mean Corpuscular Volume 104.4 fL (80-98); Mean Platelet Volume 11.5 fL (9.4-12.4); Platelet Count 312 X10*3/uL (160-400); Red Blood Count 4.75 X10*6/uL (4.60-5.80); Red Cell Distribution Width 12.5 % (11.0-16.0); WBC ABN SCTR FOR CBC 1
[2020-07-02 04:00] LABS: VBG Base Excess -28.8 mmol/L; VBG HCO3 2 mmol/L (22-26); VBG pCO2 9 mmHg; VBG pH 6.91 (7.32-7.43); VBG pO2 137 mmHg
[2020-07-02 04:01] LABS: White Blood Count 21.1 X10*3/uL (4.8-10.8)
[2020-07-02 04:03] LABS: Venous Blood Gas Refer to POC result
[2020-07-02] MEDS: Sodium Bicarbonate 8.4% 50 MEQ/50 ML VIAL IVPUSH ×3 (04:10→23:24)
[2020-07-02 04:12] LABS: COVID-19 Test Negative (Negative); IDNOW Serial# 9DD0AD1C
[2020-07-02 04:17] LABS: Band Neutrophils Percent 8 % (3-5); Lymphocytes Absolute Manual 0.8 X10*3/uL (0.6-4.8); Lymphocytes Percent Manual 4 % (20-40); Macrocytosis 1+ (5-14) /OIF; Monocytes Absolute Manual 1.1 X10*3/uL (0.0-1.2); Monocytes Percent Manual 5 % (2-11); Neutrophils Absolute Manual 19.2 X10*3/uL (2.2-7.9); Neutrophils Percent Manual 83 % (45-73); Platelet Estimate NORMAL (NORMAL); Platelet Morphology Comment NORMAL; RBC Morphology NOTED
[2020-07-02] MEDS: Piperacillin Sodium/Tazobactam 3.375 GM in 0.9 % Sodium Chloride 50 ML IV (04:23)
[2020-07-02 04:27] LABS: Acetone, serum QL Moderate (Negative)
[2020-07-02 04:37] LABS: Lactic Acid 4.1 mmol/L (0.5-2.0)
[2020-07-02 04:43] LABS: Alanine Aminotransferase 44 U/L (0-40); Albumin Level 3.3 g/dL (3.5-5.0); Alkaline Phosphatase 155 U/L (39-117); Anion Gap 30 (12-20); Aspartate Amino Transferase 28 U/L (5-37); Bilirubin Total 0.8 mg/dL (0.0-1.0); Blood Urea Nitrogen 25 mg/dL (9-16); Calcium 7.9 mg/dL (8.4-10.2); Carbon Dioxide < 5 mmol/L (22-29); Chloride 88 mmol/L (96-108); Creatinine Clr Calc Pharmacy 44.6; Estimated Glomerular Filt Rate 29; Lipase 165 U/L (8-78); Magnesium 2.6 mg/dL (1.6-2.6); Potassium 5.4 mmol/L (3.3-5.1); Sodium 118 mmol/L (135-145); Total Protein 7.4 g/dL (6.5-8.0)
--- NOTE | 2020-07-02 04:47 | PC.NURSE ---
aware of core temp. warm blankets applied. monitoring at this time.
[2020-07-02 04:49] LABS: Glucose Urine UA >=1000 MG/DL (NEG); Leukocyte Esterase Urine NEG (NEG); Nitrite Urine NEG (NEG); PH 5.5 (5.0-8.0); Specific Gravity - Urine 1.015 (1.005-1.025); Urine Blood 2+ (NEG); Urine Ketones 40 MG/DL (NEG); Urine Protein 1+ MG/DL (NEG-TRACE)
[2020-07-02 04:51] LABS: Appearance Urine CLEAR; Color Urine YELLOW
[2020-07-02 04:52] LABS: Glucose Random 1074 mg/dL (60-115)
[2020-07-02 04:56] LABS: RBC Urine 0-2 /HPF (0); Squamous Epithelial Cell Urine 1+ /LPF; WBC Urine 0-2 /HPF (0-4)
[2020-07-02 04:57] LABS: Amorphous Sediment Urine 2+ /LPF; Granular Casts Urine 0-2 /LPF; Mucus Urine 1+ /LPF
[2020-07-02] MEDS: 0.9 % Sodium Chloride 1,000 ML 300 ML IVCONT (05:01)
[2020-07-02] MEDS: Calcium Gluconate/NaCl,Iso-Osm 2 GM/100 ML PLAST..BAG IV (05:04)
[2020-07-02 05:06] LABS: Amphetamine Screen Urine Not Detected (Not Detect); Barbiturates, Urine Not Detected (Not Detect); Benzodiazepines Screen Urine Not Detected (Not Detect); Cannabinoid Screen Urine Not Detected (Not Detect); Cocaine Screen Urine Not Detected (Not Detect); Opiate Screen Urine POSITIVE (Not Detect); Phencyclidine Screen Urine POSITIVE (Not Detect)
[2020-07-02] MEDS: Insulin Regular, Human 100 UNIT/ML 3 ML VIAL 10 UNIT IVPUSH (05:06)
[2020-07-02] MEDS: Insulin Regular/NS 100 UNIT/100 ML PLAST..BAG IVCONT (05:07)
[2020-07-02 05:47] LABS: Glucose, Whole Blood > 600 mg/dL (60-115)
[2020-07-02 05:47] LABS: Glucose, Whole Blood > 600 mg/dL (60-115)
[2020-07-02 05:47] LABS: Glucose, Whole Blood > 600 mg/dL (60-115)
[2020-07-02 05:51] LABS: Glucose, Whole Blood > 600 mg/dL (60-115)
--- NOTE | 2020-07-02 05:52 | P.HPCC_ITS ---
History of Present Illness Date of Service: 07/02/20 Chief Complaint: Hyperglycemia This is a 40-year-old male with a past medical history of prediabetes, HIV, hepatitis-C, hypertension, hypertriglyceridemia, opiate dependence, NENO, and morbid obesity who presented to the emergency room via EMS for hyperglycemia. Per family, patient experiencing nausea and vomiting for the last 2-3 days, But tonight his mentation worsened this is the reason why they called EMS. In the emergency room, the patient was noted to be lethargic, Tachypnea with Kussmaul respiration pattern noted, as well as hypothermic to 92. Laboratory data significant for: VBG: pH 6.9, CO2 9, bicarb 2. WBC 21.1, sodium 118, potassium 5.4, chloride 88, carbon dioxide less than 5, anion gap 30, BUN 25, creatinine 2.48, glucose 1074, lactic acid 4.1, calcium 7.9, ALT 44, alk-phos 155, Lipase 165 Urine: acetone present. Drug screen positive for opiates and phencyclidine ED course: patient received x4 L of normal saline, 1 amp of bicarb, 2 g of calcium gluconate, Zosyn, 10 un IV insulin push as well as insulin drip initiated. Patient will be admitted into the ICU for management of DKA requiring insulin drip Review of Systems Review of Systems: Unable to do, patient lethargic PMFSH Past Medical History Medical History Anxiety and depression Benign essential hypertension Encounter for Medicare annual wellness exam Fracture of multiple ribs of left side Gynecomastia, male HIV positive Hypertension Hypertriglyceridemia Hypogonadotropic hypogonadism in male Morbid obesity Muscle twitching Obesity (BMI 30-39.9) Obstructive sleep apnea Opioid dependence Osteoarthritis Prediabetes Family History Family History Father HIV (human immunodeficiency virus infection) Mother Diabetes Glaucoma Surgical History Surgical History History of ankle surgery History of arthroscopy of left knee History of open reduction and internal fixation (ORIF) procedure Hx of knee surgery Social History Social History Household Members: Spouse and Children Alcohol intake: current Alcohol intake frequency: 0-2 drinks per day Smoking Status: Current every day smoker Tobacco Type: Cigarette Packs Per Day: 0.5 Cigarettes Per Day: 10.0 Years Smoked: 22 years Smoked in Last 30 Days: Yes Use of substances other than those prescribed or required for medical reasons: Refusing to respond Any prior treatment program specific to substance use: No Advance Directives: No Advance Directives Information Provided: No Current occupational status: disabled Meds Allergies Allergy/AdvReac Type Severity Reaction Status Date / Time RAISIN Allergy Severe SWELLING,HI Uncoded 06/11/20 18:47 VES Active Medications: Current Medications Generic Name Dose Route Start Last Admin Trade Name Freq PRN Reason Stop Dose Admin Heparin Sodium (Porcine) 5,000 unit 07/02/20 06:00 Heparin Sodium,Porcine 5,000 Unit/Ml Vial SUBCUT Q8H AMRIT Sodium Chloride 2,000 mls @ 999 mls/hr 07/02/20 04:14 07/02/20 05:18 Ns IV 07/02/20 06:14 Infused .Q2H1M STA Infusion Calcium Gluconate 2 gm in 100 mls @ 50 mls/hr 07/02/20 04:44 07/02/20 05:04 Calcium Gluconate IV 07/02/20 06:43 50 mls/hr ONCE ONE Administration Insulin Human Regular 100 unit in 100 mls @ 0 mls/hr 07/02/20 05:00 07/02/20 05:07 Myxredlin IVCONT 2 unit/hr .Q0M AMRIT 2 mls/hr Administration Protocol Per Protocol Sodium Chloride 1,000 mls @ 300 mls/hr 07/02/20 05:00 07/02/20 05:01 Ns IVCONT 07/02/20 08:19 300 mls/hr .Q3H20M AMRIT Administration Lactated Ringer's 1,000 mls @ 250 mls/hr 07/02/20 05:00 Lr IVCONT .Q4H AMRIT Ondansetron HCl 4 mg 07/02/20 04:56 Ondansetron Hcl 4 Mg/2 Ml Vial IVPUSH Q6H PRN Nausea Home Medications Medication Instructions Recorded Confirmed Last Taken Type acetaminophen 500 mg PO QID PRN MDD 3000 07/02/20 07/02/20 Unknown History diclofenac sodium 1 tab PO BID 07/02/20 07/02/20 Unknown History dolutegravir [Tivicay] 1 tab PO DAILY 07/02/20 07/02/20 Unknown History emtricitabine-tenofovir alafen 1 tab PO DAILY 07/02/20 07/02/20 Unknown History [Descovy] gabapentin 300 mg PO DAILY 07/02/20 07/02/20 Unknown History hydrochlorothiazide 1 tab PO DAILY 07/02/20 07/02/20 Unknown History lidocaine 1 appl TOPICAL ONCE PRN 07/02/20 07/02/20 Unknown History sertraline 1 tab PO DAILY 07/02/20 07/02/20 Unknown History sumatriptan succinate 50 mg PO DAILY PRN 07/02/20 07/02/20 Unknown History Physical Exam Vital Signs: Vital Signs: Last Vital Signs Temp 92.3 F L 07/02/20 04:45 Pulse 82 07/02/20 04:45 Resp 28 H 07/02/20 04:45 BP 112/52 L 07/02/20 04:45 Pulse Ox 98 07/02/20 04:45 Body Mass Index 36.8 Focus assesment performed at 0500 General: Lethargic, Slightly uncomfortable appearing male Skin: Warm, dry, intact. Head: Normocephalic, atraumatic. Neck: Supple, trachea midline. Eye: Normal conjunctiva. Ears, nose, mouth and throat: Dry oral mucosa. Cardiovascular:RRR, +S1/S2, no murmurs/rubs, pulses palpable and equal in all extremities, Normal cap refill Respiratory: Tachypnea to 30s, with a Kussmaul respirations. Lungs are clear to auscultation. Gastrointestinal: Soft, Non distended, Tenderness: Moderate, right lower quadrant, Guarding: Negative, Rebound: Negative. Back: Normal range of motion. Musculoskeletal: Normal ROM. Results Labs CBC and Chem 7: 07/02/20 03:49 07/02/20 03:48 Labs: Laboratory Results - last 24 hr 07/02/20 07/02/20 07/02/20 03:30 03:32 03:48 MCV MCH MCHC RDW Plt Count MPV Immature Gran % (Auto) Neut % (Auto) Lymph % (Auto) [place] % (Auto) Eos % (Auto) Baso % (Auto) Lymph # (Auto) [place] # (Auto) Eos # (Auto) Baso # (Auto) Abs Immat Gran (auto) Absolute Neuts (auto) Absolute Nucleated RBC Nucleated RBC % (auto) Neutrophils % (Manual) Band Neutrophils % Lymphocytes % (Manual) Monocytes % (Manual) Abs Neuts (Manual) Lymphocytes # (Manual) Monocytes # (Manual) Platelet Estimate Plt Morphology Comment RBC Morphology Macrocytosis VBG pH VBG pCO2 VBG pO2 VBG HCO3 VBG O2 Saturation VBG Base Excess Anion Gap 30 H Estim Creat Clear Calc 44.6 Estimated GFR 29 POC Glucose > 600 H* > 600 H* Random Glucose 1074 H* Lactic Acid Calcium 7.9 L Magnesium 2.6 Total Bilirubin 0.8 AST 28 ALT 44 H Alkaline Phosphatase 155 H Total Protein 7.4 Albumin 3.3 L Lipase 165 H TSH Cancelled Urine Color Urine Appearance Urine pH Ur Specific [place] Urine Protein Urine Glucose (UA) Urine Ketones Urine Blood Urine Nitrite Ur Leukocyte Esterase Urine RBC Urine WBC Ur Squamous Epith Cells Amorphous Sediment Urine Bacteria Granular Casts Urine Mucus Urine Opiates Screen Ur Barbiturates Screen Ur Phencyclidine Scrn Ur Amphetamines Screen U Benzodiazepines Scrn Urine Cocaine Screen U Marijuana (THC) Screen Acetone, Qual Moderate H COVID-19 ([facility]OLAS) COVID-19 Clin Com 07/02/20 07/02/20 07/02/20 03:49 03:49 03:51 MCV 104.4 H MCH 33.3 H MCHC 31.9 RDW 12.5 Plt Count 312 MPV 11.5 Immature Gran % (Auto) Cancelled Neut % (Auto) Cancelled Lymph % (Auto) Cancelled [place] % (Auto) Cancelled Eos % (Auto) Cancelled Baso % (Auto) Cancelled Lymph # (Auto) Cancelled [place] # (Auto) Cancelled Eos # (Auto) Cancelled Baso # (Auto) Cancelled Abs Immat Gran (auto) Cancelled Absolute Neuts (auto) Cancelled Absolute Nucleated RBC 0.000 Nucleated RBC % (auto) 0.0 Neutrophils % (Manual) 83 H Band Neutrophils % 8 H Lymphocytes % (Manual) 4 L Monocytes % (Manual) 5 Abs Neuts (Manual) 19.2 H Lymphocytes # (Manual) 0.8 Monocytes # (Manual) 1.1 Platelet Estimate NORMAL Plt Morphology Comment NORMAL RBC Morphology NOTED Macrocytosis 1+ (5-14) VBG pH 6.91 L* VBG pCO2 9 VBG pO2 137 VBG HCO3 2 L VBG O2 Saturation 98.0 VBG Base Excess -28.8 Anion Gap Estim Creat Clear Calc Estimated GFR POC Glucose Random Glucose Lactic Acid Calcium Magnesium Total Bilirubin AST ALT Alkaline Phosphatase Total Protein Albumin Lipase TSH Urine Color Urine Appearance Urine pH Ur Specific [place] Urine Protein Urine Glucose (UA) Urine Ketones Urine Blood Urine Nitrite Ur Leukocyte Esterase Urine RBC Urine WBC Ur Squamous Epith Cells Amorphous Sediment Urine Bacteria Granular Casts Urine Mucus Urine Opiates Screen Ur Barbiturates Screen Ur Phencyclidine Scrn Ur Amphetamines Screen U Benzodiazepines Scrn Urine Cocaine Screen U Marijuana (THC) Screen Acetone, Qual COVID-19 (NIKOLAS) Negative COVID-19 Clin Com See Note 07/02/20 07/02/20 07/02/20 04:04 04:37 04:37 MCV MCH MCHC RDW Plt Count MPV Immature Gran % (Auto) Neut % (Auto) Lymph % (Auto) [place] % (Auto) Eos % (Auto) Baso % (Auto) Lymph # (Auto) [place] # (Auto) Eos # (Auto) Baso # (Auto) Abs Immat Gran (auto) Absolute Neuts (auto) Absolute Nucleated RBC Nucleated RBC % (auto) Neutrophils % (Manual) Band Neutrophils % Lymphocytes % (Manual) Monocytes % (Manual) Abs Neuts (Manual) Lymphocytes # (Manual) Monocytes # (Manual) Platelet Estimate Plt Morphology Comment RBC Morphology Macrocytosis VBG pH VBG pCO2 VBG pO2 VBG HCO3 VBG O2 Saturation VBG Base Excess Anion Gap Estim Creat Clear Calc Estimated GFR POC Glucose Random Glucose Lactic Acid 4.1 H* Calcium Magnesium Total Bilirubin AST ALT Alkaline Phosphatase Total Protein Albumin Lipase TSH Urine Color YELLOW Urine Appearance CLEAR Urine pH 5.5 Ur Specific [place] 1.015 Urine Protein 1+ H Urine Glucose (UA) >=1000 H Urine Ketones 40 Urine Blood 2+ H Urine Nitrite NEG Ur Leukocyte Esterase NEG Urine RBC 0-2 Urine WBC 0-2 Ur Squamous Epith Cells 1+ Amorphous Sediment 2+ Urine Bacteria NONE Granular Casts 0-2 Urine Mucus 1+ Urine Opiates Screen POSITIVE H Ur Barbiturates Screen Not Detected Ur Phencyclidine Scrn POSITIVE H Ur Amphetamines Screen Not Detected U Benzodiazepines Scrn Not Detected Urine Cocaine Screen Not Detected U Marijuana (THC) Screen Not Detected Acetone, Qual COVID-19 ([facility]AS) COVID-19 Clin Com 04/26/21 05:06 MCV MCH MCHC RDW Plt Count MPV Immature Gran % (Auto) Neut % (Auto) Lymph % (Auto) [place] % (Auto) Eos % (Auto) Baso % (Auto) Lymph # (Auto) [place] # (Auto) Eos # (Auto) Baso # (Auto) Abs Immat Gran (auto) Absolute Neuts (auto) Absolute Nucleated RBC Nucleated RBC % (auto) Neutrophils % (Manual) Band Neutrophils % Lymphocytes % (Manual) Monocytes % (Manual) Abs Neuts (Manual) Lymphocytes # (Manual) Monocytes # (Manual) Platelet Estimate Plt Morphology Comment RBC Morphology Macrocytosis VBG pH VBG pCO2 VBG pO2 VBG HCO3 VBG O2 Saturation VBG Base Excess Anion Gap Estim Creat Clear Calc Estimated GFR POC Glucose > 600 H* Random Glucose Lactic Acid Calcium Magnesium Total Bilirubin AST ALT Alkaline Phosphatase Total Protein Albumin Lipase TSH Urine Color Urine Appearance Urine pH Ur Specific [place] Urine Protein Urine Glucose (UA) Urine Ketones Urine Blood Urine Nitrite Ur Leukocyte Esterase Urine RBC Urine WBC Ur Squamous Epith Cells Amorphous Sediment Urine Bacteria Granular Casts Urine Mucus Urine Opiates Screen Ur Barbiturates Screen Ur Phencyclidine Scrn Ur Amphetamines Screen U Benzodiazepines Scrn Urine Cocaine Screen U Marijuana (THC) Screen Acetone, Qual COVID-19 ([facility]OLAS) COVID-19 Clin Com Assessment and Plan (1) DKA (diabetic ketoacidoses): Status: Acute 40-year-old male with a past medical history of prediabetes presenting to the emergency room in diabetes ketoacidosis requiring insulin drip Neuro: lethargic, likely related to severe acidosis. Should improve after initiation of DKA protocol. Cardiac: elevated lactic: patient does have elevated white count, but is also in severe acidosis in the setting of diabetic ketoacidosis. Unsure if elevated lactic is from infectious source or from acidosis. He received appropriate IV hydration in the emergency room. Will continue to trend lactic Pulmonary: no acute issues Renal: MATT- most likely related to hypoperfusion, nonoliguric. Continue IV fluid. Continue to check renal induces and urine output GI: nausea and vomiting from gastroparesis. Endo: Preadiabetes /diabetic ketoacidosis- venous pH was 6.9, bicarb S and 5, and anion gap 30, and acetone present in the urine. Patient is lethargic at the time of admission, unsure why he was experiencing nausea /vomiting. Will treat for DKA and continue insulin drip until his gap is close. Follow DKA protocol Elevated LFTs: ALT 44, alk-phos 155, Lipase 165. ? acute pancreatitis. He has a history of hepatitis-C, bowl previous labs from Will add on triglycerides. And CT of the abdomen/pelvis when patient is more stable. He got cover with antibiotics in the emergency room. ID: leukocytosis /hypothermic: unsure of infectious source. Patient needs a CT scan but not stable to go the moment. Will send TSH for hypothermia. Empiric dose of Zosyn given in the emergency room. Will cont sozyn Heme/Onc: No acute issues. Psych: Urine toxicology positive for opiates and phencyclidine. Will monitor for withdrawals. Miscellaneous: No acute issues. Prophylaxis: heparin subQ Diet: NPO Critical care time: 90x minutes of critical care time CODE: FULL (2) MATT (acute kidney injury): Status: Acute (3) Hypertriglyceridemia: Status: Acute (4) Transaminitis: Status: Acute (5) Opioid dependence: Qualifiers: Substance use status: in remission Qualified Code(s): F11.21 - Opioid dependence, in remission Status: Acute (6) Altered mental status: Status: Acute
[2020-07-02 06:07] LABS: Triglycerides 1754 mg/dL
[2020-07-02 06:09] LABS: Reflex Lactate? Lactic Acid Added
[2020-07-02] MEDS: Lactated Ringers 1,000 ML 250 ML IVCONT (06:20)
[2020-07-02] MEDS: Heparin Sodium,Porcine 5,000 UNIT/ML VIAL 5000 UNIT SUBCUT ×3 (06:25→22:57)
--- NOTE | 2020-07-02 06:30 | PC.NURSE ---
Admitted to ICU via ED approx 0600. Opens eyes to auditory stimulation, nonverbal, moans, doesn't follow commands. poc out of range. 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 recheck at 0645, no need for serum glucose. core temp 92. chante hugger in place. uop 1300
[2020-07-02 06:48] LABS: VBG Base Excess -27.4 mmol/L; VBG HCO3 2 mmol/L (22-26); VBG pCO2 11 mmHg; VBG pH 6.95 (7.32-7.43); VBG pO2 100 mmHg
[2020-07-02 06:48] LABS: Venous Blood Gas Refer to POC result
[2020-07-02 06:53] LABS: Glucose, Whole Blood > 600 mg/dL (60-115)
[2020-07-02 07:07] LABS: ~Lactic Acid-LAB USE ONLY 2.6 mmol/L (0.5-2.0)
[2020-07-02 07:58] LABS: Glucose, Whole Blood 562 mg/dL (60-115)
[2020-07-02 08:25] LABS: Hemoglobin 15.2 g/dl (14.0-18.0)
[2020-07-02 08:36] LABS: Reflex Lactate? 2 Y
[2020-07-02 08:37] LABS: Anion Gap 26 (12-20); Blood Urea Nitrogen 23 mg/dL (9-16); Calcium 7.8 mg/dL (8.4-10.2); Carbon Dioxide < 5 mmol/L (22-29); Chloride 104 mmol/L (96-108); Creatinine Clr Calc Pharmacy 56.8; Estimated Glomerular Filt Rate 38; Glucose Random 684 mg/dL (60-115); Potassium 3.4 mmol/L (3.3-5.1); Sodium 132 mmol/L (135-145)
[2020-07-02 09:03] LABS: Glucose, Whole Blood 469 mg/dL (60-115)
[2020-07-02 09:07] LABS: Cancel Lactic Acid Canceled
[2020-07-02] MEDS: Insulin Regular/NS 100 UNIT/100 ML PLAST..BAG 10 UNIT IVCONT (09:07)
[2020-07-02] MEDS: Potassium Phosphate 30 MMOL in 0.9 % Sodium Chloride 500 ML 102 MMOL IV (09:46)
[2020-07-02] MEDS: Lactated Ringers 1,000 ML 100 ML IVCONT ×2 (09:46→19:48)
--- NOTE | 2020-07-02 10:38 | MHC.CLN ---
WHEN DIET TO ADVANCE, RECOMMEND 1800DM DIET
[2020-07-02 10:57] LABS: Glucose, Whole Blood 354 mg/dL (60-115)
[2020-07-02 12:13] LABS: Hematocrit 42.9 % (42-52); Hemoglobin 14.9 g/dl (14.0-18.0); Mean Corpuscular HGB Conc 34.7 g/dl (31.0-36.0); Mean Corpuscular Hemoglobin 33.6 pg (27.0-33.0); Mean Corpuscular Volume 96.8 fL (80-98); Mean Platelet Volume 10.9 fL (9.4-12.4); Platelet Count 169 X10*3/uL (160-400); Red Blood Count 4.43 X10*6/uL (4.60-5.80); Red Cell Distribution Width 11.9 % (11.0-16.0); White Blood Count 16.4 X10*3/uL (4.8-10.8)
[2020-07-02 12:50] LABS: Anion Gap 26 (12-20); Blood Urea Nitrogen 24 mg/dL (9-16); Calcium 8.1 mg/dL (8.4-10.2); Carbon Dioxide 5 mmol/L (22-29); Chloride 109 mmol/L (96-108); Creatinine Clr Calc Pharmacy 61.5; Estimated Glomerular Filt Rate 42; Glucose Random 321 mg/dL (60-115); Magnesium 1.8 mg/dL (1.6-2.6); Phosphorus 2.1 mg/dL (2.7-4.5); Potassium 3.9 mmol/L (3.3-5.1); Sodium 136 mmol/L (135-145)
[2020-07-02 13:02] LABS: Glucose, Whole Blood 302 mg/dL (60-115)
[2020-07-02] MEDS: Magnesium Sulfate/H2O 2 GM/50 ML PIGGYBACK IV (13:38)
--- NOTE | 2020-07-02 14:38 | MHC.CM.PN ---
Pt in ICU with DKA: 1:1 sitter for safety: pt is agitated: thrashing and yelling: unable to participate in CM assessment. Call placed to pt's spouse Gwen Velez: message left to inquire on pt's self care/PCP/DM management/outside services: will reaproach pt on 07/03 and/or await callback from Gwen to assist with d/c planning needs.
[2020-07-02 15:00] LABS: Glucose, Whole Blood 262 mg/dL (60-115)
[2020-07-02 16:59] LABS: Glucose, Whole Blood 225 mg/dL (60-115)
[2020-07-02 17:47] LABS: Albumin Level 2.9 g/dL (3.5-5.0)
[2020-07-02 18:00] LABS: Anion Gap 23 (12-20); Blood Urea Nitrogen 25 mg/dL (9-16); Calcium 8.1 mg/dL (8.4-10.2); Carbon Dioxide 8 mmol/L (22-29); Chloride 111 mmol/L (96-108); Estimated Glomerular Filt Rate 44; Glucose Random 235 mg/dL (60-115); Lipase 567 U/L (8-78); Magnesium 2.3 mg/dL (1.6-2.6); Phosphorus 2.5 mg/dL (2.7-4.5); Potassium 4.4 mmol/L (3.3-5.1); Sodium 138 mmol/L (135-145)
[2020-07-02 18:45] LABS: Glucose, Whole Blood 215 mg/dL (60-115)
[2020-07-02] MEDS: Insulin Regular/NS 100 UNIT/100 ML PLAST..BAG 6 UNIT IVCONT (18:47)
--- NOTE | 2020-07-02 19:00 | PC.NURSE ---
Late entry from shift 07/02/20 [id number] S/E Temp 96.8 - bear hugger removed - up to 97.9 WBC 21.1, BC pending Lactic down to 2.6 - lactic draws discontinued by MD NA up from 118 to 132 - MD aware Required bedside sitter in AM for pulling lines/conklin, agitated, unable to redirect Patient orientation slowly improved throughout shift - bedside sitter removed - tele sitter in place SR/ST low 100's, no ectopy BP soft - systolic 100-90's Two PRN angios patent & wrapped K 3.4, phos 2.5 - K Phos 30mmol & 15mmol administered Mag 2.0 - Mag 2g IV administered - Mag up to 2.3 Tachypnic 28-34, labored, accessory muscle use LS clear to dim, intermittent cough VBGs 6.95/11/100/2 - no new orders per MD Titrated to RA - spo2 high 96-98 NPO - moistened swaps provided Maintaining on insulin gtt per MD titration POC improved to 200's, gap down to 26 LR continued at 100cc/her while KPhos administering per MD Abd CT on hold per MD and order to be discontinued per Abd soft, nontender, no BM Lipase critical at 567 - no new orders per MD Urine output slowed down to approx 40-60cc/hr Bicarb critical throughout shift - up to 8 - no new orders per MD Scratches and bruising throughout shift; Air loss bed & prevlon pad in place Rajiv Ohara updated by this RN twice throughout shift
--- NOTE | 2020-07-02 20:03 | PM.CCPN ---
Subjective Subjective Date of Service: 07/02/20 Interval History: Mr. Lama was admitted to the ICU early this morning with DKA and mild chemical pancreatitis (likely 2? hypertriglyceridemia) and mild MATT. On admission, he had a very severe metabolic acidosis, with altered MS. Physical exam, yanique his abdomen, was otherwise benign. No evidence of sepsis. (I cancelled the abdominal CT.) Over the morning, his mental status improved significantly. His metabolic acidosis was slow to improve though, his bicarb didn?t start to rise until noon, and at 5pm was still only 8. His POC is improving slowly. It?s still > 200 on the insulin drip at 6u/hr, with fluids running LR at 200 cc/hr. Last BUN/creat improved to 25/1.7 at 5pm. IMPRESSION: 1. DKA. Continuing insulin gtt at 6u/hr. His POC is moving slow enough that we?ll delay adding D5 to his IVF until the POC gets to around 150. Recheck labs at 11pm. 2. MATT. 2? hypovolemia. Continuing IVF at 200cc/hr. 3. Hypertriglyceridemia. Will improve with the insulin. 4. Pancreatitis. 2? to above. Nothing to do other than continue above tx. Critical care time: 30+ min Physical Exam Vital Signs: Vital Signs: Last Vital Signs Temp 99.3 F 07/02/20 19:00 Pulse 107 H 07/02/20 19:00 Resp 37 H 07/02/20 19:00 BP 112/64 07/02/20 19:00 Pulse Ox 96 07/02/20 19:00 Oxygen Flow Rate 2 07/02/20 04:56 Body Mass Index 37.3 Objective Data Labs CBC & Chem 7: 07/02/20 12:00 07/02/20 17:14 Labs: Laboratory Results - last 24 hr 07/02/20 07/02/20 07/02/20 03:30 03:32 03:48 WBC RBC Hgb Hct MCV MCH MCHC RDW Plt Count MPV Immature Gran % (Auto) Neut % (Auto) Lymph % (Auto) [place] % (Auto) Eos % (Auto) Baso % (Auto) Lymph # (Auto) [place] # (Auto) Eos # (Auto) Baso # (Auto) Abs Immat Gran (auto) Absolute Neuts (auto) Absolute Nucleated RBC Nucleated RBC % (auto) Neutrophils % (Manual) Band Neutrophils % Lymphocytes % (Manual) Monocytes % (Manual) Abs Neuts (Manual) Lymphocytes # (Manual) Monocytes # (Manual) Platelet Estimate Plt Morphology Comment RBC Morphology Macrocytosis VBG pH VBG pCO2 VBG pO2 VBG HCO3 VBG O2 Saturation VBG Base Excess Sodium 118 L* Potassium 5.4 H Chloride 88 L Carbon Dioxide < 5 L* Anion Gap 30 H BUN 25 H Creatinine 2.48 H Estim Creat Clear Calc 44.6 Estimated GFR 29 POC Glucose > 600 H* > 600 H* Random Glucose 1074 H* Lactic Acid Lactic Acid Fup @ 2Hr Calcium 7.9 L Phosphorus Magnesium 2.6 Total Bilirubin 0.8 AST 28 ALT 44 H Alkaline Phosphatase 155 H Total Protein 7.4 Albumin 3.3 L Triglycerides 1754 Lipase 165 H TSH Cancelled Urine Color Urine Appearance Urine pH Ur Specific [place] Urine Protein Urine Glucose (UA) Urine Ketones Urine Blood Urine Nitrite Ur Leukocyte Esterase Urine RBC Urine WBC Ur Squamous Epith Cells Amorphous Sediment Urine Bacteria Granular Casts Urine Mucus Urine Opiates Screen Ur Barbiturates Screen Ur Phencyclidine Scrn Ur Amphetamines Screen U Benzodiazepines Scrn Urine Cocaine Screen U Marijuana (THC) Screen Acetone, Qual Moderate H COVID-19 (NIKOLAS) COVID-19 Clin Com 07/02/20 07/02/20 07/02/20 03:49 03:49 03:51 WBC 21.1 H RBC 4.75 Hgb 15.8 Hct 49.6 MCV 104.4 H MCH 33.3 H MCHC 31.9 RDW 12.5 Plt Count 312 MPV 11.5 Immature Gran % (Auto) Cancelled Neut % (Auto) Cancelled Lymph % (Auto) Cancelled [place] % (Auto) Cancelled Eos % (Auto) Cancelled Baso % (Auto) Cancelled Lymph # (Auto) Cancelled [place] # (Auto) Cancelled Eos # (Auto) Cancelled Baso # (Auto) Cancelled Abs Immat Gran (auto) Cancelled Absolute Neuts (auto) Cancelled Absolute Nucleated RBC 0.000 Nucleated RBC % (auto) 0.0 Neutrophils % (Manual) 83 H Band Neutrophils % 8 H Lymphocytes % (Manual) 4 L Monocytes % (Manual) 5 Abs Neuts (Manual) 19.2 H Lymphocytes # (Manual) 0.8 Monocytes # (Manual) 1.1 Platelet Estimate NORMAL Plt Morphology Comment NORMAL RBC Morphology NOTED Macrocytosis 1+ (5-14) VBG pH 6.91 L* VBG pCO2 9 VBG pO2 137 VBG HCO3 2 L VBG O2 Saturation 98.0 VBG Base Excess -28.8 Sodium Potassium Chloride Carbon Dioxide Anion Gap BUN Creatinine Estim Creat Clear Calc Estimated GFR POC Glucose Random Glucose Lactic Acid Lactic Acid Fup @ 2Hr Calcium Phosphorus Magnesium Total Bilirubin AST ALT Alkaline Phosphatase Total Protein Albumin Triglycerides Lipase TSH Urine Color Urine Appearance Urine pH Ur Specific [place] Urine Protein Urine Glucose (UA) Urine Ketones Urine Blood Urine Nitrite Ur Leukocyte Esterase Urine RBC Urine WBC Ur Squamous Epith Cells Amorphous Sediment Urine Bacteria Granular Casts Urine Mucus Urine Opiates Screen Ur Barbiturates Screen Ur Phencyclidine Scrn Ur Amphetamines Screen U Benzodiazepines Scrn Urine Cocaine Screen U Marijuana (THC) Screen Acetone, Qual COVID-19 (NIKOLAS) Negative COVID-19 Clin Com See Note 07/02/20 07/02/20 07/02/20 04:04 04:37 04:37 WBC RBC Hgb Hct MCV MCH MCHC RDW Plt Count MPV Immature Gran % (Auto) Neut % (Auto) Lymph % (Auto) [place] % (Auto) Eos % (Auto) Baso % (Auto) Lymph # (Auto) [place] # (Auto) Eos # (Auto) Baso # (Auto) Abs Immat Gran (auto) Absolute Neuts (auto) Absolute Nucleated RBC Nucleated RBC % (auto) Neutrophils % (Manual) Band Neutrophils % Lymphocytes % (Manual) Monocytes % (Manual) Abs Neuts (Manual) Lymphocytes # (Manual) Monocytes # (Manual) Platelet Estimate Plt Morphology Comment RBC Morphology Macrocytosis VBG pH VBG pCO2 VBG pO2 VBG HCO3 VBG O2 Saturation VBG Base Excess Sodium Potassium Chloride Carbon Dioxide Anion Gap BUN Creatinine Estim Creat Clear Calc Estimated GFR POC Glucose Random Glucose Lactic Acid 4.1 H* Lactic Acid Fup @ 2Hr Calcium Phosphorus Magnesium Total Bilirubin AST ALT Alkaline Phosphatase Total Protein Albumin Triglycerides Lipase TSH Urine Color YELLOW Urine Appearance CLEAR Urine pH 5.5 Ur Specific [place] 1.015 Urine Protein 1+ H Urine Glucose (UA) >=1000 H Urine Ketones 40 Urine Blood 2+ H Urine Nitrite NEG Ur Leukocyte Esterase NEG Urine RBC 0-2 Urine WBC 0-2 Ur Squamous Epith Cells 1+ Amorphous Sediment 2+ Urine Bacteria NONE Granular Casts 0-2 Urine Mucus 1+ Urine Opiates Screen POSITIVE H Ur Barbiturates Screen Not Detected Ur Phencyclidine Scrn POSITIVE H Ur Amphetamines Screen Not Detected U Benzodiazepines Scrn Not Detected Urine Cocaine Screen Not Detected U Marijuana (THC) Screen Not Detected Acetone, Qual COVID-19 (NIKOLAS) COVID-19 RadioRx 07/02/20 07/02/20 07/02/20 05:06 05:47 06:31 WBC RBC Hgb Hct MCV MCH MCHC RDW Plt Count MPV Immature Gran % (Auto) Neut % (Auto) Lymph % (Auto) [place] % (Auto) Eos % (Auto) Baso % (Auto) Lymph # (Auto) [place] # (Auto) Eos # (Auto) Baso # (Auto) Abs Immat Gran (auto) Absolute Neuts (auto) Absolute Nucleated RBC Nucleated RBC % (auto) Neutrophils % (Manual) Band Neutrophils % Lymphocytes % (Manual) Monocytes % (Manual) Abs Neuts (Manual) Lymphocytes # (Manual) Monocytes # (Manual) Platelet Estimate Plt Morphology Comment RBC Morphology Macrocytosis VBG pH VBG pCO2 VBG pO2 VBG HCO3 VBG O2 Saturation VBG Base Excess Sodium Potassium Chloride Carbon Dioxide Anion Gap BUN Creatinine Estim Creat Clear Calc Estimated GFR POC Glucose > 600 H* > 600 H* Random Glucose Lactic Acid Lactic Acid Fup @ 2Hr 2.6 H* Calcium Phosphorus Magnesium Total Bilirubin AST ALT Alkaline Phosphatase Total Protein Albumin Triglycerides Lipase TSH Urine Color Urine Appearance Urine pH Ur Specific [place] Urine Protein Urine Glucose (UA) Urine Ketones Urine Blood Urine Nitrite Ur Leukocyte Esterase Urine RBC Urine WBC Ur Squamous Epith Cells Amorphous Sediment Urine Bacteria Granular Casts Urine Mucus Urine Opiates Screen Ur Barbiturates Screen Ur Phencyclidine Scrn Ur Amphetamines Screen U Benzodiazepines Scrn Urine Cocaine Screen U Marijuana (THC) Screen Acetone, Qual COVID-19 (NIKOLAS) COVID-19 RadioRx 07/02/20 07/02/20 07/02/20 06:40 06:50 07:51 WBC RBC Hgb 15.2 Hct MCV MCH MCHC RDW Plt Count MPV Immature Gran % (Auto) Neut % (Auto) Lymph % (Auto) [place] % (Auto) Eos % (Auto) Baso % (Auto) Lymph # (Auto) [place] # (Auto) Eos # (Auto) Baso # (Auto) Abs Immat Gran (auto) Absolute Neuts (auto) Absolute Nucleated RBC Nucleated RBC % (auto) Neutrophils % (Manual) Band Neutrophils % Lymphocytes % (Manual) Monocytes % (Manual) Abs Neuts (Manual) Lymphocytes # (Manual) Monocytes # (Manual) Platelet Estimate Plt Morphology Comment RBC Morphology Macrocytosis VBG pH 6.95 L* VBG pCO2 11 VBG pO2 100 VBG HCO3 2 L VBG O2 Saturation 96.0 VBG Base Excess -27.4 Sodium Potassium Chloride Carbon Dioxide Anion Gap BUN Creatinine Estim Creat Clear Calc Estimated GFR POC Glucose > 600 H* Random Glucose Lactic Acid Lactic Acid Fup @ 2Hr Calcium Phosphorus Magnesium Total Bilirubin AST ALT Alkaline Phosphatase Total Protein Albumin Triglycerides Lipase TSH Urine Color Urine Appearance Urine pH Ur Specific [place] Urine Protein Urine Glucose (UA) Urine Ketones Urine Blood Urine Nitrite Ur Leukocyte Esterase Urine RBC Urine WBC Ur Squamous Epith Cells Amorphous Sediment Urine Bacteria Granular Casts Urine Mucus Urine Opiates Screen Ur Barbiturates Screen Ur Phencyclidine Scrn Ur Amphetamines Screen U Benzodiazepines Scrn Urine Cocaine Screen U Marijuana (THC) Screen Acetone, Qual COVID-19 (NIKOLAS) COVID-19 Clin Com 07/02/20 07/02/20 07/02/20 07:51 07:52 09:00 WBC RBC Hgb Hct MCV MCH MCHC RDW Plt Count MPV Immature Gran % (Auto) Neut % (Auto) Lymph % (Auto) [place] % (Auto) Eos % (Auto) Baso % (Auto) Lymph # (Auto) [place] # (Auto) Eos # (Auto) Baso # (Auto) Abs Immat Gran (auto) Absolute Neuts (auto) Absolute Nucleated RBC Nucleated RBC % (auto) Neutrophils % (Manual) Band Neutrophils % Lymphocytes % (Manual) Monocytes % (Manual) Abs Neuts (Manual) Lymphocytes # (Manual) Monocytes # (Manual) Platelet Estimate Plt Morphology Comment RBC Morphology Macrocytosis VBG pH VBG pCO2 VBG pO2 VBG HCO3 VBG O2 Saturation VBG Base Excess Sodium 132 L Potassium 3.4 D Chloride 104 Carbon Dioxide < 5 L* Anion Gap 26 H BUN 23 H Creatinine 1.96 H Estim Creat Clear Calc 56.8 Estimated GFR 38 POC Glucose 562 H* 469 H* Random Glucose 684 H* Lactic Acid Lactic Acid Fup @ 2Hr Calcium 7.8 L Phosphorus 3.0 Magnesium 2.0 Total Bilirubin AST ALT Alkaline Phosphatase Total Protein Albumin Triglycerides Lipase TSH 0.10 L Urine Color Urine Appearance Urine pH Ur Specific [place] Urine Protein Urine Glucose (UA) Urine Ketones Urine Blood Urine Nitrite Ur Leukocyte Esterase Urine RBC Urine WBC Ur Squamous Epith Cells Amorphous Sediment Urine Bacteria Granular Casts Urine Mucus Urine Opiates Screen Ur Barbiturates Screen Ur Phencyclidine Scrn Ur Amphetamines Screen U Benzodiazepines Scrn Urine Cocaine Screen U Marijuana (THC) Screen Acetone, Qual COVID-19 (NIKOLAS) COVID-19 Clin Com 07/02/20 07/02/20 07/02/20 10:52 12:00 12:00 WBC 16.4 H RBC 4.43 L Hgb 14.9 Hct 42.9 MCV 96.8 D MCH 33.6 H MCHC 34.7 RDW 11.9 Plt Count 169 D MPV 10.9 Immature Gran % (Auto) Neut % (Auto) Lymph % (Auto) [place] % (Auto) Eos % (Auto) Baso % (Auto) Lymph # (Auto) [place] # (Auto) Eos # (Auto) Baso # (Auto) Abs Immat Gran (auto) Absolute Neuts (auto) Absolute Nucleated RBC 0.000 Nucleated RBC % (auto) 0.0 Neutrophils % (Manual) Band Neutrophils % Lymphocytes % (Manual) Monocytes % (Manual) Abs Neuts (Manual) Lymphocytes # (Manual) Monocytes # (Manual) Platelet Estimate Plt Morphology Comment RBC Morphology Macrocytosis VBG pH VBG pCO2 VBG pO2 VBG HCO3 VBG O2 Saturation VBG Base Excess Sodium 136 Potassium 3.9 Chloride 109 H Carbon Dioxide 5 L* Anion Gap 26 H BUN 24 H Creatinine 1.81 H Estim Creat Clear Calc 61.5 Estimated GFR 42 POC Glucose 354 H* Random Glucose 321 H D Lactic Acid Lactic Acid Fup @ 2Hr Calcium 8.1 L Phosphorus 2.1 L Magnesium 1.8 Total Bilirubin AST ALT Alkaline Phosphatase Total Protein Albumin Triglycerides Lipase TSH Urine Color Urine Appearance Urine pH Ur Specific [place] Urine Protein Urine Glucose (UA) Urine Ketones Urine Blood Urine Nitrite Ur Leukocyte Esterase Urine RBC Urine WBC Ur Squamous Epith Cells Amorphous Sediment Urine Bacteria Granular Casts Urine Mucus Urine Opiates Screen Ur Barbiturates Screen Ur Phencyclidine Scrn Ur Amphetamines Screen U Benzodiazepines Scrn Urine Cocaine Screen U Marijuana (THC) Screen Acetone, Qual COVID-19 (NIKOLAS) COVID-19 Clin Com 07/02/20 07/02/20 07/02/20 12:58 14:56 16:56 WBC RBC Hgb Hct MCV MCH MCHC RDW Plt Count MPV Immature Gran % (Auto) Neut % (Auto) Lymph % (Auto) [place] % (Auto) Eos % (Auto) Baso % (Auto) Lymph # (Auto) [place] # (Auto) Eos # (Auto) Baso # (Auto) Abs Immat Gran (auto) Absolute Neuts (auto) Absolute Nucleated RBC Nucleated RBC % (auto) Neutrophils % (Manual) Band Neutrophils % Lymphocytes % (Manual) Monocytes % (Manual) Abs Neuts (Manual) Lymphocytes # (Manual) Monocytes # (Manual) Platelet Estimate Plt Morphology Comment RBC Morphology Macrocytosis VBG pH VBG pCO2 VBG pO2 VBG HCO3 VBG O2 Saturation VBG Base Excess Sodium Potassium Chloride Carbon Dioxide Anion Gap BUN Creatinine Estim Creat Clear Calc Estimated GFR POC Glucose 302 H 262 H 225 H Random Glucose Lactic Acid Lactic Acid Fup @ 2Hr Calcium Phosphorus Magnesium Total Bilirubin AST ALT Alkaline Phosphatase Total Protein Albumin Triglycerides Lipase TSH Urine Color Urine Appearance Urine pH Ur Specific [place] Urine Protein Urine Glucose (UA) Urine Ketones Urine Blood Urine Nitrite Ur Leukocyte Esterase Urine RBC Urine WBC Ur Squamous Epith Cells Amorphous Sediment Urine Bacteria Granular Casts Urine Mucus Urine Opiates Screen Ur Barbiturates Screen Ur Phencyclidine Scrn Ur Amphetamines Screen U Benzodiazepines Scrn Urine Cocaine Screen U Marijuana (THC) Screen Acetone, Qual COVID-19 (NIKOLAS) COVID-19 Clin Com 07/02/20 07/02/20 07/02/20 17:14 17:14 17:14 WBC RBC Hgb Hct MCV MCH MCHC RDW Plt Count MPV Immature Gran % (Auto) Neut % (Auto) Lymph % (Auto) [place] % (Auto) Eos % (Auto) Baso % (Auto) Lymph # (Auto) [place] # (Auto) Eos # (Auto) Baso # (Auto) Abs Immat Gran (auto) Absolute Neuts (auto) Absolute Nucleated RBC Nucleated RBC % (auto) Neutrophils % (Manual) Band Neutrophils % Lymphocytes % (Manual) Monocytes % (Manual) Abs Neuts (Manual) Lymphocytes # (Manual) Monocytes # (Manual) Platelet Estimate Plt Morphology Comment RBC Morphology Macrocytosis VBG pH VBG pCO2 VBG pO2 VBG HCO3 VBG O2 Saturation VBG Base Excess Sodium 138 Potassium 4.4 Chloride 111 H Carbon Dioxide 8 L* D Anion Gap 23 H BUN 25 H Creatinine 1.74 H Estim Creat Clear Calc 64.0 Estimated GFR 44 POC Glucose Random Glucose 235 H Lactic Acid Lactic Acid Fup @ 2Hr Calcium 8.1 L Phosphorus 2.5 L Magnesium 2.3 Total Bilirubin AST ALT Alkaline Phosphatase Total Protein Albumin 2.9 L Triglycerides Lipase 567 H TSH Urine Color Urine Appearance Urine pH Ur Specific [place] Urine Protein Urine Glucose (UA) Urine Ketones Urine Blood Urine Nitrite Ur Leukocyte Esterase Urine RBC Urine WBC Ur Squamous Epith Cells Amorphous Sediment Urine Bacteria Granular Casts Urine Mucus Urine Opiates Screen Ur Barbiturates Screen Ur Phencyclidine Scrn Ur Amphetamines Screen U Benzodiazepines Scrn Urine Cocaine Screen U Marijuana (THC) Screen Acetone, Qual COVID-19 (NIKOLAS) COVID-Shawarmanji 07/02/20 18:39 WBC RBC Hgb Hct MCV MCH MCHC RDW Plt Count MPV Immature Gran % (Auto) Neut % (Auto) Lymph % (Auto) [place] % (Auto) Eos % (Auto) Baso % (Auto) Lymph # (Auto) [place] # (Auto) Eos # (Auto) Baso # (Auto) Abs Immat Gran (auto) Absolute Neuts (auto) Absolute Nucleated RBC Nucleated RBC % (auto) Neutrophils % (Manual) Band Neutrophils % Lymphocytes % (Manual) Monocytes % (Manual) Abs Neuts (Manual) Lymphocytes # (Manual) Monocytes # (Manual) Platelet Estimate Plt Morphology Comment RBC Morphology Macrocytosis VBG pH VBG pCO2 VBG pO2 VBG HCO3 VBG O2 Saturation VBG Base Excess Sodium Potassium Chloride Carbon Dioxide Anion Gap BUN Creatinine Estim Creat Clear Calc Estimated GFR POC Glucose 215 H Random Glucose Lactic Acid Lactic Acid Fup @ 2Hr Calcium Phosphorus Magnesium Total Bilirubin AST ALT Alkaline Phosphatase Total Protein Albumin Triglycerides Lipase TSH Urine Color Urine Appearance Urine pH Ur Specific [place] Urine Protein Urine Glucose (UA) Urine Ketones Urine Blood Urine Nitrite Ur Leukocyte Esterase Urine RBC Urine WBC Ur Squamous Epith Cells Amorphous Sediment Urine Bacteria Granular Casts Urine Mucus Urine Opiates Screen Ur Barbiturates Screen Ur Phencyclidine Scrn Ur Amphetamines Screen U Benzodiazepines Scrn Urine Cocaine Screen U Marijuana (THC) Screen Acetone, Qual COVID-19 (NIKOLAS) COVID-JDCPhosphate Com Critical Care Time Critical Care Time (minutes): 30 (Code [id number])
[2020-07-02 20:55] LABS: Glucose, Whole Blood 194 mg/dL (60-115)
[2020-07-02 21:52] LABS: Venous Blood Gas Refer to POC result
[2020-07-02 21:54] LABS: VBG Base Excess -16.1 mmol/L; VBG HCO3 8 mmol/L (22-26); VBG pCO2 17 mmHg; VBG pH 7.26 (7.32-7.43); VBG pO2 42 mmHg
[2020-07-02 22:04] LABS: Glucose, Whole Blood 193 mg/dL (60-115)
[2020-07-02 22:15] LABS: Anion Gap 23 (12-20); Blood Urea Nitrogen 23 mg/dL (9-16); Carbon Dioxide 7 mmol/L (22-29); Chloride 113 mmol/L (96-108); Creatinine Clr Calc Pharmacy 98.6; Estimated Glomerular Filt Rate > 60; Glucose Random 190 mg/dL (60-115); Potassium 3.8 mmol/L (3.3-5.1); Sodium 139 mmol/L (135-145)
[2020-07-02 22:27] LABS: Phosphorus 1.4 mg/dL (2.7-4.5)
[2020-07-02 23:42] LABS: Glucose, Whole Blood 184 mg/dL (60-115)
[2020-07-03] VITALS (17 sets, daily range): BP systolic 98–146; BP diastolic 44–89; PULSE 111–119; RESP 30–57; TEMP 38.1–38.7; O2SAT 9–100; BMI 37.0
[2020-07-03 00:05] LABS: Glucose, Whole Blood 276 mg/dL (60-115)
[2020-07-03] MEDS: HYDROmorphone HCl 0.5 MG/0.5 ML SYRINGE IVPUSH (00:20)
--- NOTE | 2020-07-03 00:40 | PC.NURSE ---
PT HAS REMAINED ALTERED THROUGH THE NIGHT. HE MOANS AND FREQUENTLY REPOSITIONS UPPER EXTREMITIES. HE DOES NOT FOLLOW COMMAND. HE MOVES ALL EXTREMETIES IN A SEMIPURPOSEFUL MANOR. COMPLEXION WEBB. ORAL MUCOSA DESICCATED. SERIAL LABS HAVE SHOWN SERIOUS METABOLIC DERANGEMENT. PT HAS BEEN METABOLICALLY ACIDOTIC. HE IS TACHYPNEIC RR 40-[address] APICAL HR 110-115 BPM. SAO2 99%- THE FOLLOWING INTERVENTIONS-A. K PHOS 15 MMOL DRIP STARTED 2. INSULIN DRIP TITRATED TO 10 UX/HR 3. 3 AMPS IV NAHCO3 GIVEN 4. WILL START NAHCO3 WHEN ACCESS IS ESTABLISHED 5. DILAUDID 0.5 MG IVP GIVEN TO DECREASE WORK OF BREATHING 6.AT THIS JUNCTURE THERE ARE 2 FUNCTIONING PERIPHERAL LINES. THE PLAN IS TO FURTHER STABLIZE PT AND ESTABLISH CENTRAL LINE ACESS.
[2020-07-03] MEDS: Albumin Human 25 % 100 ML IV ×2 (00:50→01:02)
[2020-07-03 00:51] LABS: VBG Base Excess -14.6 mmol/L; VBG HCO3 7 mmol/L (22-26); VBG pCO2 13 mmHg; VBG pH 7.34 (7.32-7.43); VBG pO2 51 mmHg
[2020-07-03] MEDS: Sodium Bicarbonate 8.4% 50 MEQ/50 ML VIAL IVPUSH (01:04)
[2020-07-03 01:08] LABS: Anion Gap 26 (12-20); Blood Urea Nitrogen 22 mg/dL (9-16); Carbon Dioxide 6 mmol/L (22-29); Chloride 113 mmol/L (96-108); Creatinine Clr Calc Pharmacy 87.7; Estimated Glomerular Filt Rate > 60; Glucose Random 175 mg/dL (60-115); Lipase 588 U/L (8-78); Potassium 3.9 mmol/L (3.3-5.1); Sodium 141 mmol/L (135-145)
[2020-07-03] MEDS: HYDROmorphone HCl 1 MG/ML SYRINGE IVPUSH ×2 (01:20→05:18)
[2020-07-03 01:39] LABS: Venous Blood Gas Refer to POC result
[2020-07-03 01:44] LABS: Glucose, Whole Blood 180 mg/dL (60-115)
--- NOTE | 2020-07-03 01:52 | P.PCNCC_ITS ---
Procedures Central Line Placement A quick time-out was made for clarification and proper patient identification, patient was positioned, landmarks were identified, US used to locate a large compressible IJ. The right neck was widely prepped and draped in a full sterile fashion. Ultrasound was used to locate again the right IJ, the vein was cannul ated on the 1st pass with an 18 gauge thin needle, dark nonpulsatile blood return was obtained. The wire was threaded, a small incision was made at its base and dilator inserted. A triple-lumen central venous catheter was advanced into the vein up to the hub without problems, wired was removed. Ports had good blood return and flushed x3. The catheter was secured with 3 sutures at 3 sites, a Biopatch and dry sterile dressing were applied.Post procedure chest x- ray showed the line to be in good position without pneumothorax. No bleeding or complications noted.: Consent for Procedure: Emergent-no informed consent obtained Time out performed: Yes Sterile Technique Used: Yes Patient placed on monitor/pulse ox: Yes MD prep: mask, gown and gloves Central line prep: Chlorhexidine scrub Local anesthesia used: lidocaine 1% Amount of anesthesia used (ml): 10 Ultrasound used for placement: Yes Central line lumen inserted: triple Post procedure: sutured in place, good blood return, all ports aspirated, flushed, capped and sterile dressing applied Post procedure x-ray: tip of catheter in good position and no pneumothorax seen Patient tolerated procedure: well and no complications Complications: none
[2020-07-03 02:03] LABS: Glucose, Whole Blood 159 mg/dL (60-115)
[2020-07-03 02:05] LABS: Triglycerides 1142 mg/dL
[2020-07-03 02:05] LABS: Lactic Acid 0.8 mmol/L (0.5-2.0)
[2020-07-03] MEDS: Sodium Bicarbonate 8.4% 150 MEQ in Dextrose 5 % 850 ML IV ×3 (02:09→14:08)
[2020-07-03] MEDS: ondansetron HCL 4 MG/2 ML VIAL IVPUSH (02:17)
[2020-07-03 03:08] LABS: Glucose, Whole Blood 178 mg/dL (60-115)
[2020-07-03] MEDS: Lactated Ringers 1,000 ML 100 ML IVCONT ×2 (03:15→08:04)
[2020-07-03 05:12] LABS: Glucose, Whole Blood 232 mg/dL (60-115)
[2020-07-03 05:26] LABS: VBG HCO3 10 mmol/L (22-26); VBG pCO2 16 mmHg; VBG pH 7.42 (7.32-7.43); VBG pO2 40 mmHg
[2020-07-03 05:41] LABS: Basophils Percent Auto 0.2 % (0-2); Hematocrit 33.9 % (42-52); Hemoglobin 12.1 g/dl (14.0-18.0); Imm Gran Abs Auto 0.01 X10*3/uL (0.00-0.03); Imm Gran Pct Auto 0.2 % (0.0-0.4); Lymphocytes Absolute Auto 0.4 X10*3/uL (1.2-4.9); MANUAL DIFF FLAG SCAN; Mean Corpuscular HGB Conc 35.7 g/dl (31.0-36.0); Mean Corpuscular Volume 92.4 fL (80-98); Mean Platelet Volume 11.3 fL (9.4-12.4); Monocytes Absolute Auto 0.5 X10*3/uL (0.1-1.2); Monocytes Percent Auto 7.7 % (2-11); Neutrophils Absolute Auto 5.5 X10*3/uL (2.0-8.3); Neutrophils Percent Auto 85.9 % (45-73); Platelet Count 130 X10*3/uL (160-400); Red Blood Count 3.67 X10*6/uL (4.60-5.80); Red Cell Distribution Width 12.4 % (11.0-16.0); SCAN SMEAR FLAG 1; White Blood Count 6.4 X10*3/uL (4.8-10.8)
[2020-07-03 05:52] LABS: Ammonia 36 umol/L (13-55)
[2020-07-03 06:01] LABS: Glucose, Whole Blood 224 mg/dL (60-115)
[2020-07-03 06:06] LABS: Venous Blood Gas Refer to POC result
[2020-07-03 06:11] LABS: Triglycerides 794 mg/dL
[2020-07-03] MEDS: Heparin Sodium,Porcine 5,000 UNIT/ML VIAL 5000 UNIT SUBCUT (06:13)
[2020-07-03 06:14] LABS: C Reactive Protein 18.87 mg/dL (< or = 0.50)
[2020-07-03 06:21] LABS: Alanine Aminotransferase 20 U/L (0-40); Alkaline Phosphatase 90 U/L (39-117); Anion Gap 24 (12-20); Aspartate Amino Transferase 20 U/L (5-37); Bilirubin Total 0.7 mg/dL (0.0-1.0); Blood Urea Nitrogen 22 mg/dL (9-16); Carbon Dioxide 10 mmol/L (22-29); Chloride 113 mmol/L (96-108); Creatinine Clr Calc Pharmacy 83.1; Estimated Glomerular Filt Rate 59; Glucose Random 264 mg/dL (60-115); Lipase 483 U/L (8-78); Magnesium 1.8 mg/dL (1.6-2.6); Phosphorus 1.5 mg/dL (2.7-4.5); Sodium 144 mmol/L (135-145); Total Protein 5.4 g/dL (6.5-8.0)
[2020-07-03 06:23] LABS: SLIDE REVIEW VERIFIED
[2020-07-03 06:31] LABS: Procalcitonin 4.67 ng/mL
[2020-07-03] MEDS: Acetaminophen Supp 650 MG SUPP.RECT PR (06:32)
[2020-07-03 07:00] LABS: Glucose, Whole Blood 249 mg/dL (60-115)
[2020-07-03 07:56] LABS: Glucose, Whole Blood 210 mg/dL (60-115)
--- NOTE | 2020-07-03 08:02 | P.CDIC_ITS ---
CDI Concurrent Query Service Date: 07/03/20 Documentation Clarification: Please clarify if you are treating a proba ble/suspected/likely or confirmed: Metabolic Encephalopathy Toxic Encephalopathy Toxic Metabolic Encephalopathy PLEASE DO NOT DELETE/MODIFY EXISTING CONTENT Additional information is needed in order to code to the highest accuracy and appropriate Severity of Illness (SOI). Please clarify the information noted below in your progress notes and discharge summary. Risk Factors/Clinical Indicators/Treatments 40 year old male admitted with DKA, MATT, Dehydration, Severe Metabolic Acidosis with altered mental status, lethargic Hypothermic, Gastroparesis T 92.3, P 82, R 28, BP 112/52, SAT 98% Glucose 1074 Urine positive for opiates and Phencyclidine CDS: Verito Jones RN Contact Number: [phone] Please Review the information above and exercise your independent professional judgment in responding to the query. If you concur, pleas document in the PROGRESS NOTES and DISCHARGE SUMMARY. If you do not agree with the query, please document in the query above. THIS QUERY IS PART OF THE PERMANENT MEDICAL RECORD
[2020-07-03] MEDS: Insulin Regular/NS 100 UNIT/100 ML PLAST..BAG 12 UNIT IVCONT (08:21)
--- NOTE | 2020-07-03 09:18 | PM.CNGS ---
History of Present Illness Consult details Consult date: 07/03/20 Narrative: 40-year-old male admitted yesterday to the ICU because of DKA with altered mental status, also diagnosed to have pancreatitis likely secondary to hypertriglyceridemia. He has multiple medical problems including opioid dependence, morbid obesity, HIV and [place]. He seems to have had some abdominal pain and distension. I have therefore been asked to consult. He came in initially with elevated lactate but this has normalized this morning. I do not see any history of alcohol abuse on record. Review of his H&P also shows that he came in very tachypneic any remains so. Since the patient is not communicative, not much of the rest of his history is available. Review of Systems Review of Systems: Yes Unobtainable due to mental condition PMFSH Past Medical History Medical History Abdominal pain Anxiety and depression Benign essential hypertension Encounter for Medicare annual wellness exam Fracture of multiple ribs of left side Gynecomastia, male HIV positive Hypertension Hypertriglyceridemia Hypogonadotropic hypogonadism in male Morbid obesity Muscle twitching Obesity (BMI 30-39.9) Obstructive sleep apnea Opioid dependence Osteoarthritis Prediabetes Family History Family History Father HIV (human immunodeficiency virus infection) Mother Diabetes Glaucoma Surgical History Surgical History History of ankle surgery History of arthroscopy of left knee History of open reduction and internal fixation (ORIF) procedure Hx of knee surgery Social History Social History Household Members: Unknown / Unable to assess Housing: Unknown / Unable to assess Alcohol intake: current Alcohol intake frequency: 0-2 drinks per day Smoking Status: Current every day smoker Tobacco Type: Cigarette Packs Per Day: 0.5 Cigarettes Per Day: 10.0 Years Smoked: 22 years service: No Current occupational status: unemployed and disabled Meds Allergies Allergy/AdvReac Type Severity Reaction Status Date / Time RAISIN Allergy Severe SWELLING,HI Uncoded 06/11/20 18:47 VES Active Medications: Current Medications Generic Name Dose Route Start Last Admin Trade Name Freq PRN Reason Stop Dose Admin Acetaminophen 650 mg 07/03/20 06:20 07/03/20 06:32 Acetaminophen Supp 650 Mg Supp.Rect [place] 650 mg Q6H PRN Administration Fever >101 Albuterol/Ipratropium 3 ml 07/03/20 08:00 07/03/20 08:14 Albuterol/Iprat 2.5/0.5mg 3 Ml Ampul.Neb INHALE Not Given RQ6H WHILE AWAKE AMRIT Heparin Sodium (Porcine) 5,000 unit 07/02/20 06:00 07/03/20 06:13 Heparin Sodium,Porcine 5,000 Unit/Ml Vial SUBCUT 5,000 unit Q8H AMRIT Administration Hydromorphone HCl 1 mg 07/03/20 01:50 07/03/20 05:18 Hydromorphone Hcl 1 Mg/Ml Syringe IVPUSH 1 mg Q2H PRN Administration Pain, Severe (Pain Scale 7-10) Hydromorphone HCl 1 mg 07/03/20 05:11 Hydromorphone Hcl 1 Mg/Ml Syringe IVPUSH Q2H PRN DISTRES Lactated Ringer's 1,000 mls @ 250 mls/hr 07/02/20 05:00 07/03/20 08:26 Lr IVCONT Infused .Q4H AMRIT Infusion Insulin Human Regular 100 unit in 100 mls @ 0 mls/hr 07/02/20 09:00 07/03/20 08:47 Myxredlin IVCONT 10 unit/hr .Q0M AMRIT 10 mls/hr Infusion As Directed Sodium Bicarbonate 150 meq/ 1,000 mls @ 150 mls/hr 07/03/20 01:00 07/03/20 08:51 Dextrose IV 150 mls/hr .Q6H40M AMRIT Administration Ondansetron HCl 4 mg 07/03/20 01:49 07/03/20 02:17 Ondansetron Hcl 4 Mg/2 Ml Vial IVPUSH 4 mg Q8H PRN Administration Nausea and Vomiting Home Medications Medication Instructions Recorded Confirmed Last Taken Type Descovy 1 tab PO DAILY 07/02/20 07/02/20 Unknown History Tivicay 1 tab PO DAILY 07/02/20 07/02/20 Unknown History Physical Exam Vital Signs: Vital Signs: Last Vital Signs Temp 101.3 F H 07/03/20 09:00 Pulse 111 H 07/03/20 09:00 Resp 57 H 07/03/20 09:00 BP 112/71 07/03/20 09:00 Pulse Ox 97 07/03/20 09:00 Oxygen Flow Rate 2 07/02/20 04:56 Body Mass Index 37.0 Const: Other: Appears uncomfortable, not communicative, very tachypneic Resp: Effort & Inspection: respiratory distress Cardio: Rate: tachycardic GI: Other: Distended, diffuse tenderness, protuberant and obese Results Labs Result diagrams: 07/03/20 10:59 07/03/20 11:00 Labs: Abnormal lab results 07/02/20 07/02/20 07/02/20 Range/Units 10:52 12:00 12:00 WBC 16.4 H (4.8-10.8) X10*3/uL RBC 4.43 L (4.60-5.80) X10*6/uL Hgb (14.0-18.0) g/dl Hct (42-52) % MCH 33.6 H (27.0-33.0) pg Plt Count (160-400) X10*3/uL Neut % (Auto) (45-73) % Lymph % (Auto) (20-40) % Lymph # (Auto) (1.2-4.9) X10*3/uL VBG pH (7.32-7.43) VBG HCO3 (22-26) mmol/L Potassium (3.3-5.1) mmol/L Chloride 109 H (96-108) mmol/L Carbon Dioxide 5 L* (22-29) mmol/L Anion Gap 26 H (12-20) BUN 24 H (9-16) mg/dL Creatinine 1.81 H (0.5-1.4) mg/dL POC Glucose 354 H* (60-115) mg/dL Random Glucose 321 H D (60-115) mg/dL Calcium 8.1 L (8.4-10.2) mg/dL Phosphorus 2.1 L (2.7-4.5) mg/dL C-Reactive Protein (< or = 0.50) mg/dL Total Protein (6.5-8.0) g/dL Albumin (3.5-5.0) g/dL Lipase (8-78) U/L 07/02/20 07/02/20 07/02/20 Range/Units 12:58 14:56 16:56 WBC (4.8-10.8) X10*3/uL RBC (4.60-5.80) X10*6/uL Hgb (14.0-18.0) g/dl Hct (42-52) % MCH (27.0-33.0) pg Plt Count (160-400) X10*3/uL Neut % (Auto) (45-73) % Lymph % (Auto) (20-40) % Lymph # (Auto) (1.2-4.9) X10*3/uL VBG pH (7.32-7.43) VBG HCO3 (22-26) mmol/L Potassium (3.3-5.1) mmol/L Chloride (96-108) mmol/L Carbon Dioxide (22-29) mmol/L Anion Gap (12-20) BUN (9-16) mg/dL Creatinine (0.5-1.4) mg/dL POC Glucose 302 H 262 H 225 H (60-115) mg/dL Random Glucose (60-115) mg/dL Calcium (8.4-10.2) mg/dL Phosphorus (2.7-4.5) mg/dL C-Reactive Protein (< or = 0.50) mg/dL Total Protein (6.5-8.0) g/dL Albumin (3.5-5.0) g/dL Lipase (8-78) U/L 07/02/20 07/02/20 07/02/20 Range/Units 17:14 17:14 17:14 WBC (4.8-10.8) X10*3/uL RBC (4.60-5.80) X10*6/uL Hgb (14.0-18.0) g/dl Hct (42-52) % MCH (27.0-33.0) pg Plt Count (160-400) X10*3/uL Neut % (Auto) (45-73) % Lymph % (Auto) (20-40) % Lymph # (Auto) (1.2-4.9) X10*3/uL VBG pH (7.32-7.43) VBG HCO3 (22-26) mmol/L Potassium (3.3-5.1) mmol/L Chloride 111 H (96-108) mmol/L Carbon Dioxide 8 L* D (22-29) mmol/L Anion Gap 23 H (12-20) BUN 25 H (9-16) mg/dL Creatinine 1.74 H (0.5-1.4) mg/dL POC Glucose (60-115) mg/dL Random Glucose 235 H (60-115) mg/dL Calcium 8.1 L (8.4-10.2) mg/dL Phosphorus 2.5 L (2.7-4.5) mg/dL C-Reactive Protein (< or = 0.50) mg/dL Total Protein (6.5-8.0) g/dL Albumin 2.9 L (3.5-5.0) g/dL Lipase 567 H (8-78) U/L 07/02/20 07/02/20 07/02/20 Range/Units 18:39 20:51 21:44 WBC (4.8-10.8) X10*3/uL RBC (4.60-5.80) X10*6/uL Hgb (14.0-18.0) g/dl Hct (42-52) % MCH (27.0-33.0) pg Plt Count (160-400) X10*3/uL Neut % (Auto) (45-73) % Lymph % (Auto) (20-40) % Lymph # (Auto) (1.2-4.9) X10*3/uL VBG pH (7.32-7.43) VBG HCO3 (22-26) mmol/L Potassium (3.3-5.1) mmol/L Chloride 113 H (96-108) mmol/L Carbon Dioxide 7 L* (22-29) mmol/L Anion Gap 23 H (12-20) BUN 23 H (9-16) mg/dL Creatinine (0.5-1.4) mg/dL POC Glucose 215 H 194 H (60-115) mg/dL Random Glucose 190 H (60-115) mg/dL Calcium 8.0 L (8.4-10.2) mg/dL Phosphorus (2.7-4.5) mg/dL C-Reactive Protein (< or = 0.50) mg/dL Total Protein (6.5-8.0) g/dL Albumin (3.5-5.0) g/dL Lipase (8-78) U/L 07/02/20 07/02/20 07/02/20 Range/Units 21:44 21:47 22:00 WBC (4.8-10.8) X10*3/uL RBC (4.60-5.80) X10*6/uL Hgb (14.0-18.0) g/dl Hct (42-52) % MCH (27.0-33.0) pg Plt Count (160-400) X10*3/uL Neut % (Auto) (45-73) % Lymph % (Auto) (20-40) % Lymph # (Auto) (1.2-4.9) X10*3/uL VBG pH 7.26 L (7.32-7.43) VBG HCO3 8 L (22-26) mmol/L Potassium (3.3-5.1) mmol/L Chloride (96-108) mmol/L Carbon Dioxide (22-29) mmol/L Anion Gap (12-20) BUN (9-16) mg/dL Creatinine (0.5-1.4) mg/dL POC Glucose 193 H (60-115) mg/dL Random Glucose (60-115) mg/dL Calcium (8.4-10.2) mg/dL Phosphorus 1.4 L (2.7-4.5) mg/dL C-Reactive Protein (< or = 0.50) mg/dL Total Protein (6.5-8.0) g/dL Albumin (3.5-5.0) g/dL Lipase (8-78) U/L 07/02/20 07/03/20 07/03/20 Range/Units 23:13 00:01 00:32 WBC (4.8-10.8) X10*3/uL RBC (4.60-5.80) X10*6/uL Hgb (14.0-18.0) g/dl Hct (42-52) % MCH (27.0-33.0) pg Plt Count (160-400) X10*3/uL Neut % (Auto) (45-73) % Lymph % (Auto) (20-40) % Lymph # (Auto) (1.2-4.9) X10*3/uL VBG pH (7.32-7.43) VBG HCO3 (22-26) mmol/L Potassium (3.3-5.1) mmol/L Chloride 113 H (96-108) mmol/L Carbon Dioxide 6 L* (22-29) mmol/L Anion Gap 26 H (12-20) BUN 22 H (9-16) mg/dL Creatinine (0.5-1.4) mg/dL POC Glucose 184 H 276 H (60-115) mg/dL Random Glucose 175 H (60-115) mg/dL Calcium 8.0 L (8.4-10.2) mg/dL Phosphorus (2.7-4.5) mg/dL C-Reactive Protein (< or = 0.50) mg/dL Total Protein (6.5-8.0) g/dL Albumin (3.5-5.0) g/dL Lipase 588 H (8-78) U/L 07/03/20 07/03/20 07/03/20 Range/Units 00:44 01:09 02:00 WBC (4.8-10.8) X10*3/uL RBC (4.60-5.80) X10*6/uL Hgb (14.0-18.0) g/dl Hct (42-52) % MCH (27.0-33.0) pg Plt Count (160-400) X10*3/uL Neut % (Auto) (45-73) % Lymph % (Auto) (20-40) % Lymph # (Auto) (1.2-4.9) X10*3/uL VBG pH (7.32-7.43) VBG HCO3 7 L (22-26) mmol/L Potassium (3.3-5.1) mmol/L Chloride (96-108) mmol/L Carbon Dioxide (22-29) mmol/L Anion Gap (12-20) BUN (9-16) mg/dL Creatinine (0.5-1.4) mg/dL POC Glucose 180 H 159 H (60-115) mg/dL Random Glucose (60-115) mg/dL Calcium (8.4-10.2) mg/dL Phosphorus (2.7-4.5) mg/dL C-Reactive Protein (< or = 0.50) mg/dL Total Protein (6.5-8.0) g/dL Albumin (3.5-5.0) g/dL Lipase (8-78) U/L 07/03/20 07/03/20 07/03/20 Range/Units 03:05 05:08 05:20 WBC (4.8-10.8) X10*3/uL RBC 3.67 L (4.60-5.80) X10*6/uL Hgb 12.1 L (14.0-18.0) g/dl Hct 33.9 L D (42-52) % MCH (27.0-33.0) pg Plt Count 130 L (160-400) X10*3/uL Neut % (Auto) 85.9 H (45-73) % Lymph % (Auto) 6.0 L (20-40) % Lymph # (Auto) 0.4 L (1.2-4.9) X10*3/uL VBG pH (7.32-7.43) VBG HCO3 (22-26) mmol/L Potassium (3.3-5.1) mmol/L Chloride (96-108) mmol/L Carbon Dioxide (22-29) mmol/L Anion Gap (12-20) BUN (9-16) mg/dL Creatinine (0.5-1.4) mg/dL POC Glucose 178 H 232 H (60-115) mg/dL Random Glucose (60-115) mg/dL Calcium (8.4-10.2) mg/dL Phosphorus (2.7-4.5) mg/dL C-Reactive Protein (< or = 0.50) mg/dL Total Protein (6.5-8.0) g/dL Albumin (3.5-5.0) g/dL Lipase (8-78) U/L 07/03/20 07/03/20 07/03/20 Range/Units 05:20 05:20 05:20 WBC (4.8-10.8) X10*3/uL RBC (4.60-5.80) X10*6/uL Hgb (14.0-18.0) g/dl Hct (42-52) % MCH (27.0-33.0) pg Plt Count (160-400) X10*3/uL Neut % (Auto) (45-73) % Lymph % (Auto) (20-40) % Lymph # (Auto) (1.2-4.9) X10*3/uL VBG pH (7.32-7.43) VBG HCO3 10 L (22-26) mmol/L Potassium 3.0 L D (3.3-5.1) mmol/L Chloride 113 H (96-108) mmol/L Carbon Dioxide 10 L* D (22-29) mmol/L Anion Gap 24 H (12-20) BUN 22 H (9-16) mg/dL Creatinine (0.5-1.4) mg/dL POC Glucose (60-115) mg/dL Random Glucose 264 H D (60-115) mg/dL Calcium 8.0 L (8.4-10.2) mg/dL Phosphorus 1.5 L (2.7-4.5) mg/dL C-Reactive Protein 18.87 H (< or = 0.50) mg/dL Total Protein 5.4 L D (6.5-8.0) g/dL Albumin 3.0 L (3.5-5.0) g/dL Lipase 483 H (8-78) U/L 07/03/20 07/03/20 07/03/20 Range/Units 05:57 06:56 07:52 WBC (4.8-10.8) X10*3/uL RBC (4.60-5.80) X10*6/uL Hgb (14.0-18.0) g/dl Hct (42-52) % MCH (27.0-33.0) pg Plt Count (160-400) X10*3/uL Neut % (Auto) (45-73) % Lymph % (Auto) (20-40) % Lymph # (Auto) (1.2-4.9) X10*3/uL VBG pH (7.32-7.43) VBG HCO3 (22-26) mmol/L Potassium (3.3-5.1) mmol/L Chloride (96-108) mmol/L Carbon Dioxide (22-29) mmol/L Anion Gap (12-20) BUN (9-16) mg/dL Creatinine (0.5-1.4) mg/dL POC Glucose 224 H 249 H 210 H (60-115) mg/dL Random Glucose (60-115) mg/dL Calcium (8.4-10.2) mg/dL Phosphorus (2.7-4.5) mg/dL C-Reactive Protein (< or = 0.50) mg/dL Total Protein (6.5-8.0) g/dL Albumin (3.5-5.0) g/dL Lipase (8-78) U/L Short CBC 07/02/20 07/03/20 Range/Units 12:00 05:20 WBC 16.4 H 6.4 (4.8-10.8) X10*3/uL Hgb 14.9 12.1 L (14.0-18.0) g/dl Hct 42.9 33.9 L D (42-52) % Plt Count 169 D 130 L (160-400) X10*3/uL BMP 07/02/20 07/02/20 07/02/20 12:00 17:14 21:44 Sodium 136 138 139 Potassium 3.9 4.4 3.8 Chloride 109 H 111 H 113 H Carbon Dioxide 5 L* 8 L* D 7 L* BUN 24 H 25 H 23 H Creatinine 1.81 H 1.74 H 1.13 Calcium 8.1 L 8.1 L 8.0 L 07/03/20 07/03/20 00:32 05:20 Sodium 141 144 Potassium 3.9 3.0 L D Chloride 113 H 113 H Carbon Dioxide 6 L* 10 L* D BUN 22 H 22 H Creatinine 1.27 1.34 Calcium 8.0 L 8.0 L Liver Function 07/02/20 07/03/20 Range/Units 17:14 05:20 Total Bilirubin 0.7 (0.0-1.0) mg/dL AST 20 (5-37) U/L ALT 20 (0-40) U/L Alkaline Phosphatase 90 D (39-117) U/L Albumin 2.9 L 3.0 L (3.5-5.0) g/dL Urine 07/02/20 Range/Units 04:37 Urine Color YELLOW Urine Appearance CLEAR Urine pH 5.5 (5.0-8.0) Ur Specific [place] 1.015 (1.005-1.025) Urine Protein 1+ H (NEG-TRACE) MG/DL Urine Glucose (UA) >=1000 H (NEG) MG/DL All other labs normal. Imaging Abdomen CT scan report/results: report reviewed and image reviewed CT scan - pelvis: report reviewed and image reviewed Assessment and Plan (1) Abdominal pain: Problem details: He has pancreatitis by lab testing and clinical symptoms ,but there are no signs of necrotizing pancreatitis on CT scan He is intubated There may be concern over developing gram negative infection related to pancreas,blood cultures negative so far Status: Acute 40-year-old male admitted for severe DKA, with abdominal pain as well. I have reviewed his CAT scan done this morning. His some mild ascites with some thickening of the small bowel consistent with enteritis. There was no suggestion of an ischemic process. His lactate is within normal this morning. However remains very tachypneic and appears to be in impending respiratory failure. His abdominal pain is likely secondary to his acute pancreatitis with rising lipase. Etiology is most likely from hypertriglyceridemia. I would recommend doing an NG tube as he likely also has ileus because of his ongoing metabolic and physiologic insult. His white count is within normal. I would repeat the CT scan in the next 24-48 hours if there is no improvement with his overall condition. I will follow closely and have discussed above with the flue gas analyst. The patient remains acidotic and is critically ill at this time.
[2020-07-03] MEDS: fentaNYL citrate/PF 100 MCG/2 ML VIAL 200 MCG IVPUSH (09:35)
[2020-07-03] MEDS: Rocuronium Bromide 50 MG/5 ML VIAL IVPUSH (09:40)
[2020-07-03] MEDS: propofoL 1,000 MG/100 ML VIAL 31.2 MG IVCONT ×2 (09:40→12:35)
[2020-07-03] MEDS: propofoL 200 MG/20 ML VIAL 100 MG IVPUSH (09:40)
[2020-07-03] MEDS: fentaNYL citrate/NS 1,000 MCG/100 ML PLAST..BAG 10 MCG IVCONT (10:02)
[2020-07-03 11:00] LABS: Glucose, Whole Blood 213 mg/dL (60-115)
[2020-07-03 11:06] LABS: Hematocrit 33.7 % (42-52); Hemoglobin 12.5 g/dl (14.0-18.0); Mean Corpuscular HGB Conc 37.1 g/dl (31.0-36.0); Mean Corpuscular Hemoglobin 33.8 pg (27.0-33.0); Mean Corpuscular Volume 91.1 fL (80-98); Mean Platelet Volume 11.2 fL (9.4-12.4); Platelet Count 136 X10*3/uL (160-400); Red Cell Distribution Width 12.5 % (11.0-16.0); White Blood Count 6.7 X10*3/uL (4.8-10.8)
[2020-07-03 11:15] LABS: Venous Blood Gas Refer to POC result
[2020-07-03 11:19] LABS: VBG Base Excess -4.5 mmol/L; VBG HCO3 18 mmol/L (22-26); VBG pCO2 29 mmHg; VBG pO2 79 mmHg
[2020-07-03 11:20] LABS: VBG pH 7.41 (7.32-7.43)
[2020-07-03] MEDS: Magnesium Sulfate/H2O 2 GM/50 ML PIGGYBACK IV (11:35)
[2020-07-03] MEDS: Acetaminophen Oral Liquid 650 MG/20.3 ML SOLUTION OG-TUBE (11:35)
--- NOTE | 2020-07-03 11:35 | W.PM.CCHP ---
Procedures Intubation Intubation Comments: PROCEDURE NOTE: Tracheal intubation. INDICATIONS: Acute respiratory failure secondary to pancreatitis with metabolic acidosis Anesthesia: Fentanyl 100ug, Propofol 60mg, Zemuron 50mg. Procedure: The patient developed progressive resp fatigue and somnolence. He was preoxygenated with NRBFM. RSI was carried out with the meds above. The glottis was easily visualized with the MAC 4 blade, and the trachea was intubated with an 8.0 ETT via direct vision, atraumatic. BSBE, +CO2, SpO2 maintained. The tube was secured at 26 cm at upper lip. The patient abdoul the procedure well with no complications. Post op chest x-ray showed the ETT 1cm above the cariina and the OGT in correct position in the stomach. The ETT was withdrawn 1cm.
--- NOTE | 2020-07-03 11:36 | PM.CCPN ---
Subjective Subjective Date of Service: 07/03/20 Interval History: CRITICAL CARE PROGRESS NOTE AND TRANSFER SUMMARY Mr. Lama was admitted to the ICU from the ED early yesterday morning with DKA, severe metabolic acidosis w MATT, and mild chemical pancreatitis (likely 2? hypertriglyceridemia). This is a 40-year-old male with a past medical history of prediabetes, HIV, hepatitis-C, hypertension, hypertriglyceridemia, opiate dependence, NENO, and morbid obesity. He was BIBA to the [place] ED yesterday morning bec of nausea and vomiting for the prior 2-3 days, and altered mental status that morning. In the emergency room, the patient was noted to be lethargic and delirious, tachypneic with Kussmaul respirations. He was hypothermic to 92?. His abodomen was soft, nondistendedd, moderately tender, but no guarding or rebound. Labs were notable for WBC 21, Na 118, K 54, bicarb <5, BUN/creat 25/2.5, gluc 1074, Ca 7.9, unremarkable LFTs, alk phos 155, alb 3.3. lipase 165, Triglycerides. VBG showed pH 6.91, pCO2 9, BE -28. COVID negative The patient was vol resuscitated, given insulin and a dose of Zosyn, and admitted to ICU, where vol resusc and the insulin drip continued. Over the day yesterday, his glucose levels and bicarb corrected very slowly. Last night, his bicarb was only up to 7, his POC (point of care glucose) was down to the 200 level still on insulin drip at 10u/hr. BUN/creat were down to 23/1.1. He was still very tachypneic. His abdomen became more distended and tender. Noncontrast CT abdomen at 2am this morning showed diffuse small bowel wall thickening, w diffuse stranding of the mesenteric fat. Small amount of free fluid. The patient was started on a bicarb drip and meropenem. This morning, he?s more tachypneic, and was therefore intubated. He?s still tachypneic on the ventilator, despite high dose fentanyl and propofol drips. Post-intubation, heart rate is 112, blood pressure is 135/75. On pressure control at a rate of 28, pressures 22/12, 70%, respiratory rate is 43, tidal volumes 430 cc, minute volume 19 L, peak inspiratory pressure 35, and tidal CO2 21, and sat is 91%. His temperature is 101.1 degrees. No jugular venous distention with the head of the bed at 30 degrees. Chest is clear to auscultation, with a normal expiratory phase heart rate and rhythm are regular, with normal-sounding S1 and S2, with no murmur or gallops. The abdomen is significantly distended, a bit firm, and very tender. Definite guarding, even through the propofol and fentanyl. No bowel sounds. The OG tube is draining green bilious fluid with a few coffee-grounds. He has no peripheral edema. LABORATORY DATA: White count this morning is 6.7, hemoglobin is 12.5 (down from 15.8 on admission), platelet count is 136 (down from 312). At 11:00, sodium was 146, potassium 2.5 (being replaced with 30 millimoles K-Phos and 40 mEq of KCl), chloride 113, bicarb 18, BUN and creatinine 19/1.3, glucose 235, calcium 7.9. Last lipase at 05:00 this morning was 483, triglycerides were 794, albumin was 3.0, C reactive protein was 18, and procalcitonin was 4.6. The patient was seen by Dr. Miller, our general surgeon, who felt that there was no indication for surgery at this time, and recommended a follow-up CT scan at 24 hours if necessary. IMPRESSION: 1. DKA. Continuing insulin gtt at 10u/hr. 2. Hypertriglyceridemia. Improving on insulin. 3. Pancreatitis. Presumed 2? to above. Abdomen is increasingly distended and tender, may need surgical exploration. Transferring to [facility] surgical ICU, Dr. Tomlinson. 4. MATT. 2? hypovolemia. Continuing IVF at 200cc/hr. 5. Metabolic acidosis. Currently on bicarb drip. Critical care time (including multiple visits to the bedside, multiple discussions with surgery, discussion with Dr. Pavon, and consultation with [facility] surgery; excluding procedures): 2+ hrs Physical Exam Vital Signs: Vital Signs: Last Vital Signs Temp 101.5 F H 07/03/20 11:00 Pulse 113 H 07/03/20 11:00 Resp 44 H 07/03/20 11:00 BP 98/44 L 07/03/20 11:00 Pulse Ox 90 L 07/03/20 11:00 Oxygen Flow Rate 2 07/02/20 04:56 Body Mass Index 37.0 Objective Data Labs CBC & Chem 7: 07/03/20 10:59 07/03/20 11:00 Labs: Laboratory Results - last 24 hr 07/02/20 07/02/20 07/02/20 12:00 12:00 12:58 WBC 16.4 H RBC 4.43 L Hgb 14.9 Hct 42.9 MCV 96.8 D MCH 33.6 H MCHC 34.7 RDW 11.9 Plt Count 169 D MPV 10.9 Immature Gran % (Auto) Neut % (Auto) Lymph % (Auto) [place] % (Auto) Eos % (Auto) Baso % (Auto) Lymph # (Auto) [place] # (Auto) Eos # (Auto) Baso # (Auto) Abs Immat Gran (auto) Absolute Neuts (auto) Absolute Nucleated RBC 0.000 Nucleated RBC % (auto) 0.0 Smear Tech's Comments O2 Saturation ABG pH at Pt Temp ABG pH (Temp Correct) ABG pCO2 at Pt Temp ABG pCO2 (Temp Corrct ABG pO2 at Pt Temp ABG pO2 (Temp Correct ABG HCO3 ABG Base Excess (Actual) VBG pH VBG pCO2 VBG pO2 VBG HCO3 VBG O2 Saturation VBG Base Excess Sodium 136 Potassium 3.9 Chloride 109 H Carbon Dioxide 5 L* Anion Gap 26 H BUN 24 H Creatinine 1.81 H Estim Creat Clear Calc 61.5 Estimated GFR 42 POC Glucose 302 H Random Glucose 321 H D Lactic Acid Calcium 8.1 L Phosphorus 2.1 L Magnesium 1.8 Total Bilirubin AST ALT Alkaline Phosphatase Ammonia C-Reactive Protein Total Protein Albumin Triglycerides Lipase Procalcitonin 07/02/20 07/02/20 07/02/20 14:56 16:56 17:14 WBC RBC Hgb Hct MCV MCH MCHC RDW Plt Count MPV Immature Gran % (Auto) Neut % (Auto) Lymph % (Auto) [place] % (Auto) Eos % (Auto) Baso % (Auto) Lymph # (Auto) [place] # (Auto) Eos # (Auto) Baso # (Auto) Abs Immat Gran (auto) Absolute Neuts (auto) Absolute Nucleated RBC Nucleated RBC % (auto) Smear Tech's Comments O2 Saturation ABG pH at Pt Temp ABG pH (Temp Correct) ABG pCO2 at Pt Temp ABG pCO2 (Temp Corrct ABG pO2 at Pt Temp ABG pO2 (Temp Correct ABG HCO3 ABG Base Excess (Actual) VBG pH VBG pCO2 VBG pO2 VBG HCO3 VBG O2 Saturation VBG Base Excess Sodium 138 Potassium 4.4 Chloride 111 H Carbon Dioxide 8 L* D Anion Gap 23 H BUN 25 H Creatinine 1.74 H Estim Creat Clear Calc 64.0 Estimated GFR 44 POC Glucose 262 H 225 H Random Glucose 235 H Lactic Acid Calcium 8.1 L Phosphorus 2.5 L Magnesium 2.3 Total Bilirubin AST ALT Alkaline Phosphatase Ammonia C-Reactive Protein Total Protein Albumin Triglycerides Lipase Procalcitonin 07/02/20 07/02/20 07/02/20 17:14 17:14 18:39 WBC RBC Hgb Hct MCV MCH MCHC RDW Plt Count MPV Immature Gran % (Auto) Neut % (Auto) Lymph % (Auto) [place] % (Auto) Eos % (Auto) Baso % (Auto) Lymph # (Auto) [place] # (Auto) Eos # (Auto) Baso # (Auto) Abs Immat Gran (auto) Absolute Neuts (auto) Absolute Nucleated RBC Nucleated RBC % (auto) Smear Tech's Comments O2 Saturation ABG pH at Pt Temp ABG pH (Temp Correct) ABG pCO2 at Pt Temp ABG pCO2 (Temp Corrct ABG pO2 at Pt Temp ABG pO2 (Temp Correct ABG HCO3 ABG Base Excess (Actual) VBG pH VBG pCO2 VBG pO2 VBG HCO3 VBG O2 Saturation VBG Base Excess Sodium Potassium Chloride Carbon Dioxide Anion Gap BUN Creatinine Estim Creat Clear Calc Estimated GFR POC Glucose 215 H Random Glucose Lactic Acid Calcium Phosphorus Magnesium Total Bilirubin AST ALT Alkaline Phosphatase Ammonia C-Reactive Protein Total Protein Albumin 2.9 L Triglycerides Lipase 567 H Procalcitonin 07/02/20 07/02/20 07/02/20 20:51 21:44 21:44 WBC RBC Hgb Hct MCV MCH MCHC RDW Plt Count MPV Immature Gran % (Auto) Neut % (Auto) Lymph % (Auto) [place] % (Auto) Eos % (Auto) Baso % (Auto) Lymph # (Auto) [place] # (Auto) Eos # (Auto) Baso # (Auto) Abs Immat Gran (auto) Absolute Neuts (auto) Absolute Nucleated RBC Nucleated RBC % (auto) Smear Tech's Comments O2 Saturation ABG pH at Pt Temp ABG pH (Temp Correct) ABG pCO2 at Pt Temp ABG pCO2 (Temp Corrct ABG pO2 at Pt Temp ABG pO2 (Temp Correct ABG HCO3 ABG Base Excess (Actual) VBG pH VBG pCO2 VBG pO2 VBG HCO3 VBG O2 Saturation VBG Base Excess Sodium 139 Potassium 3.8 Chloride 113 H Carbon Dioxide 7 L* Anion Gap 23 H BUN 23 H Creatinine 1.13 Estim Creat Clear Calc 98.6 Estimated GFR > 60 POC Glucose 194 H Random Glucose 190 H Lactic Acid Calcium 8.0 L Phosphorus 1.4 L Magnesium 2.0 Total Bilirubin AST ALT Alkaline Phosphatase Ammonia C-Reactive Protein Total Protein Albumin Triglycerides 1142 Lipase Procalcitonin 07/02/20 07/02/20 07/02/20 21:47 22:00 23:13 WBC RBC Hgb Hct MCV MCH MCHC RDW Plt Count MPV Immature Gran % (Auto) Neut % (Auto) Lymph % (Auto) [place] % (Auto) Eos % (Auto) Baso % (Auto) Lymph # (Auto) [place] # (Auto) Eos # (Auto) Baso # (Auto) Abs Immat Gran (auto) Absolute Neuts (auto) Absolute Nucleated RBC Nucleated RBC % (auto) Smear Tech's Comments O2 Saturation ABG pH at Pt Temp ABG pH (Temp Correct) ABG pCO2 at Pt Temp ABG pCO2 (Temp Corrct ABG pO2 at Pt Temp ABG pO2 (Temp Correct ABG HCO3 ABG Base Excess (Actual) VBG pH 7.26 L VBG pCO2 17 VBG pO2 42 VBG HCO3 8 L VBG O2 Saturation 77.0 VBG Base Excess -16.1 Sodium Potassium Chloride Carbon Dioxide Anion Gap BUN Creatinine Estim Creat Clear Calc Estimated GFR POC Glucose 193 H 184 H Random Glucose Lactic Acid Calcium Phosphorus Magnesium Total Bilirubin AST ALT Alkaline Phosphatase Ammonia C-Reactive Protein Total Protein Albumin Triglycerides Lipase Procalcitonin 07/03/20 07/03/20 07/03/20 00:01 00:32 00:44 WBC RBC Hgb Hct MCV MCH MCHC RDW Plt Count MPV Immature Gran % (Auto) Neut % (Auto) Lymph % (Auto) [place] % (Auto) Eos % (Auto) Baso % (Auto) Lymph # (Auto) [place] # (Auto) Eos # (Auto) Baso # (Auto) Abs Immat Gran (auto) Absolute Neuts (auto) Absolute Nucleated RBC Nucleated RBC % (auto) Smear Tech's Comments O2 Saturation ABG pH at Pt Temp ABG pH (Temp Correct) ABG pCO2 at Pt Temp ABG pCO2 (Temp Corrct ABG pO2 at Pt Temp ABG pO2 (Temp Correct ABG HCO3 ABG Base Excess (Actual) VBG pH 7.34 VBG pCO2 13 VBG pO2 51 VBG HCO3 7 L VBG O2 Saturation 89.0 VBG Base Excess -14.6 Sodium 141 Potassium 3.9 Chloride 113 H Carbon Dioxide 6 L* Anion Gap 26 H BUN 22 H Creatinine 1.27 Estim Creat Clear Calc 87.7 Estimated GFR > 60 POC Glucose 276 H Random Glucose 175 H Lactic Acid Calcium 8.0 L Phosphorus Magnesium Total Bilirubin AST ALT Alkaline Phosphatase Ammonia C-Reactive Protein Total Protein Albumin Triglycerides Lipase 588 H Procalcitonin 07/03/20 07/03/20 07/03/20 01:09 01:41 02:00 WBC RBC Hgb Hct MCV MCH MCHC RDW Plt Count MPV Immature Gran % (Auto) Neut % (Auto) Lymph % (Auto) [place] % (Auto) Eos % (Auto) Baso % (Auto) Lymph # (Auto) [place] # (Auto) Eos # (Auto) Baso # (Auto) Abs Immat Gran (auto) Absolute Neuts (auto) Absolute Nucleated RBC Nucleated RBC % (auto) Smear Tech's Comments O2 Saturation ABG pH at Pt Temp ABG pH (Temp Correct) ABG pCO2 at Pt Temp ABG pCO2 (Temp Corrct ABG pO2 at Pt Temp ABG pO2 (Temp Correct ABG HCO3 ABG Base Excess (Actual) VBG pH VBG pCO2 VBG pO2 VBG HCO3 VBG O2 Saturation VBG Base Excess Sodium Potassium Chloride Carbon Dioxide Anion Gap BUN Creatinine Estim Creat Clear Calc Estimated GFR POC Glucose 180 H 159 H Random Glucose Lactic Acid 0.8 Calcium Phosphorus Magnesium Total Bilirubin AST ALT Alkaline Phosphatase Ammonia C-Reactive Protein Total Protein Albumin Triglycerides Lipase Procalcitonin 07/03/20 07/03/20 07/03/20 03:05 05:08 05:20 WBC 6.4 RBC 3.67 L Hgb 12.1 L Hct 33.9 L D MCV 92.4 MCH 33.0 MCHC 35.7 RDW 12.4 Plt Count 130 L MPV 11.3 Immature Gran % (Auto) 0.2 Neut % (Auto) 85.9 H Lymph % (Auto) 6.0 L [place] % (Auto) 7.7 Eos % (Auto) 0.0 Baso % (Auto) 0.2 Lymph # (Auto) 0.4 L [place] # (Auto) 0.5 Eos # (Auto) 0.0 Baso # (Auto) 0.0 Abs Immat Gran (auto) 0.01 Absolute Neuts (auto) 5.5 Absolute Nucleated RBC 0.000 Nucleated RBC % (auto) 0.0 Smear Tech's Comments VERIFIED O2 Saturation ABG pH at Pt Temp ABG pH (Temp Correct) ABG pCO2 at Pt Temp ABG pCO2 (Temp Corrct ABG pO2 at Pt Temp ABG pO2 (Temp Correct ABG HCO3 ABG Base Excess (Actual) VBG pH VBG pCO2 VBG pO2 VBG HCO3 VBG O2 Saturation VBG Base Excess Sodium Potassium Chloride Carbon Dioxide Anion Gap BUN Creatinine Estim Creat Clear Calc Estimated GFR POC Glucose 178 H 232 H Random Glucose Lactic Acid Calcium Phosphorus Magnesium Total Bilirubin AST ALT Alkaline Phosphatase Ammonia C-Reactive Protein Total Protein Albumin Triglycerides Lipase Procalcitonin 07/03/20 07/03/20 07/03/20 05:20 05:20 05:20 WBC RBC Hgb Hct MCV MCH MCHC RDW Plt Count MPV Immature Gran % (Auto) Neut % (Auto) Lymph % (Auto) [place] % (Auto) Eos % (Auto) Baso % (Auto) Lymph # (Auto) [place] # (Auto) Eos # (Auto) Baso # (Auto) Abs Immat Gran (auto) Absolute Neuts (auto) Absolute Nucleated RBC Nucleated RBC % (auto) Smear Tech's Comments O2 Saturation ABG pH at Pt Temp ABG pH (Temp Correct) ABG pCO2 at Pt Temp ABG pCO2 (Temp Corrct ABG pO2 at Pt Temp ABG pO2 (Temp Correct ABG HCO3 ABG Base Excess (Actual) VBG pH VBG pCO2 VBG pO2 VBG HCO3 VBG O2 Saturation VBG Base Excess Sodium 144 Potassium 3.0 L D Chloride 113 H Carbon Dioxide 10 L* D Anion Gap 24 H BUN 22 H Creatinine 1.34 Estim Creat Clear Calc 83.1 Estimated GFR 59 POC Glucose Random Glucose 264 H D Lactic Acid Calcium 8.0 L Phosphorus 1.5 L Magnesium 1.8 Total Bilirubin 0.7 AST 20 ALT 20 Alkaline Phosphatase 90 D Ammonia 36 C-Reactive Protein Total Protein 5.4 L D Albumin 3.0 L Triglycerides 794 Lipase 483 H Procalcitonin 07/03/20 07/03/20 07/03/20 05:20 05:20 05:20 WBC RBC Hgb Hct MCV MCH MCHC RDW Plt Count MPV Immature Gran % (Auto) Neut % (Auto) Lymph % (Auto) [place] % (Auto) Eos % (Auto) Baso % (Auto) Lymph # (Auto) [place] # (Auto) Eos # (Auto) Baso # (Auto) Abs Immat Gran (auto) Absolute Neuts (auto) Absolute Nucleated RBC Nucleated RBC % (auto) Smear Tech's Comments O2 Saturation ABG pH at Pt Temp ABG pH (Temp Correct) ABG pCO2 at Pt Temp ABG pCO2 (Temp Corrct ABG pO2 at Pt Temp ABG pO2 (Temp Correct ABG HCO3 ABG Base Excess (Actual) VBG pH 7.42 VBG pCO2 16 VBG pO2 40 VBG HCO3 10 L VBG O2 Saturation 80.0 VBG Base Excess -11.0 Sodium Potassium Chloride Carbon Dioxide Anion Gap BUN Creatinine Estim Creat Clear Calc Estimated GFR POC Glucose Random Glucose Lactic Acid Calcium Phosphorus Magnesium Total Bilirubin AST ALT Alkaline Phosphatase Ammonia C-Reactive Protein 18.87 H Total Protein Albumin Triglycerides Lipase Procalcitonin 4.67 07/03/20 07/03/20 07/03/20 05:57 06:56 07:52 WBC RBC Hgb Hct MCV MCH MCHC RDW Plt Count MPV Immature Gran % (Auto) Neut % (Auto) Lymph % (Auto) [place] % (Auto) Eos % (Auto) Baso % (Auto) Lymph # (Auto) [place] # (Auto) Eos # (Auto) Baso # (Auto) Abs Immat Gran (auto) Absolute Neuts (auto) Absolute Nucleated RBC Nucleated RBC % (auto) Smear Tech's Comments O2 Saturation ABG pH at Pt Temp ABG pH (Temp Correct) ABG pCO2 at Pt Temp ABG pCO2 (Temp Corrct ABG pO2 at Pt Temp ABG pO2 (Temp Correct ABG HCO3 ABG Base Excess (Actual) VBG pH VBG pCO2 VBG pO2 VBG HCO3 VBG O2 Saturation VBG Base Excess Sodium Potassium Chloride Carbon Dioxide Anion Gap BUN Creatinine Estim Creat Clear Calc Estimated GFR POC Glucose 224 H 249 H 210 H Random Glucose Lactic Acid Calcium Phosphorus Magnesium Total Bilirubin AST ALT Alkaline Phosphatase Ammonia C-Reactive Protein Total Protein Albumin Triglycerides Lipase Procalcitonin 07/03/20 07/03/20 07/03/20 10:56 10:58 10:59 WBC 6.7 RBC 3.70 L Hgb 12.5 L Hct 33.7 L MCV 91.1 MCH 33.8 H MCHC 37.1 H RDW 12.5 Plt Count 136 L MPV 11.2 Immature Gran % (Auto) Neut % (Auto) Lymph % (Auto) [place] % (Auto) Eos % (Auto) Baso % (Auto) Lymph # (Auto) [place] # (Auto) Eos # (Auto) Baso # (Auto) Abs Immat Gran (auto) Absolute Neuts (auto) Absolute Nucleated RBC 0.000 Nucleated RBC % (auto) 0.0 Smear Tech's Comments O2 Saturation ABG pH at Pt Temp ABG pH (Temp Correct) ABG pCO2 at Pt Temp ABG pCO2 (Temp Corrct ABG pO2 at Pt Temp ABG pO2 (Temp Correct ABG HCO3 ABG Base Excess (Actual) VBG pH 7.41 VBG pCO2 29 VBG pO2 79 VBG HCO3 18 L VBG O2 Saturation 96.0 VBG Base Excess -4.5 Sodium Potassium Chloride Carbon Dioxide Anion Gap BUN Creatinine Estim Creat Clear Calc Estimated GFR POC Glucose 213 H Random Glucose Lactic Acid Calcium Phosphorus Magnesium Total Bilirubin AST ALT Alkaline Phosphatase Ammonia C-Reactive Protein Total Protein Albumin Triglycerides Lipase Procalcitonin 07/03/20 11:07 WBC RBC Hgb Hct MCV MCH MCHC RDW Plt Count MPV Immature Gran % (Auto) Neut % (Auto) Lymph % (Auto) [place] % (Auto) Eos % (Auto) Baso % (Auto) Lymph # (Auto) [place] # (Auto) Eos # (Auto) Baso # (Auto) Abs Immat Gran (auto) Absolute Neuts (auto) Absolute Nucleated RBC Nucleated RBC % (auto) Smear Tech's Comments O2 Saturation Cancelled ABG pH at Pt Temp Cancelled ABG pH (Temp Correct) Cancelled ABG pCO2 at Pt Temp Cancelled ABG pCO2 (Temp Corrct Cancelled ABG pO2 at Pt Temp Cancelled ABG pO2 (Temp Correct Cancelled ABG HCO3 Cancelled ABG Base Excess (Actual) Cancelled VBG pH VBG pCO2 VBG pO2 VBG HCO3 VBG O2 Saturation VBG Base Excess Sodium Potassium Chloride Carbon Dioxide Anion Gap BUN Creatinine Estim Creat Clear Calc Estimated GFR POC Glucose Random Glucose Lactic Acid Calcium Phosphorus Magnesium Total Bilirubin AST ALT Alkaline Phosphatase Ammonia C-Reactive Protein Total Protein Albumin Triglycerides Lipase Procalcitonin Microbiology Microbiology Results: Microbiology 07/02/20 03:47 Blood - Venous Blood Culture - Preliminary No growth after 24 hours. 07/02/20 03:47 Blood - Venous Blood Culture - Preliminary No growth after 24 hours. Critical Care Time Critical Care Time (minutes): 120
[2020-07-03 11:51] LABS: Anion Gap 18 (12-20); Blood Urea Nitrogen 19 mg/dL (9-16); Calcium 7.9 mg/dL (8.4-10.2); Carbon Dioxide 18 mmol/L (22-29); Chloride 113 mmol/L (96-108); Creatinine Clr Calc Pharmacy 84.6; Estimated Glomerular Filt Rate > 60; Glucose Random 235 mg/dL (60-115); Potassium 2.5 mmol/L (3.3-5.1); Sodium 146 mmol/L (135-145)
[2020-07-03 12:08] LABS: Lactic Acid 1.3 mmol/L (0.5-2.0)
[2020-07-03] MEDS: LORazepam 2 MG/ML VIAL IVPUSH (12:35)
[2020-07-03] MEDS: fentaNYL citrate/NS 1,000 MCG/100 ML PLAST..BAG 30 MCG IVCONT (13:03)
[2020-07-03] MEDS: Potassium Chloride/H20 40 MEQ/100 ML PIGGYBACK 25 MEQ IV (13:03)
[2020-07-03 13:29] LABS: Glucose, Whole Blood 247 mg/dL (60-115)
[2020-07-03] MEDS: Pantoprazole Sodium 40 MG/10 ML VIAL IVPUSH (13:40)
--- NOTE | 2020-07-03 13:51 | MHC.CM.PN ---
Pt is being transferred to [facility] for surgical management.
[2020-07-03 14:06] LABS: INTERNATIONAL NORM RATIO 1.1 (0.9-1.1); Prothrombin Time 12.9 SEC (10.8-13.0)
[2020-07-03 14:09] LABS: Partial Thromboplastin Time 28.6 SEC (24.1-38.0)
--- NOTE | 2020-07-03 14:29 | P.CNID_ITS ---
History of Present Illness Data of Consult Service Date: 07/03/20 Requesting physician: Mark Damian Primary Care Provider: Unknown Physician HPI Reason for consult: Merem ?,pancreatitis He presents to hospital with 2-3 days of nausea and vomiting. He had respiratory distress and was intubated. He has elevated lipase c/w pancreatitis He has no bacteremia. He has HIV reported and has h/o Hepatitis C Review of Systems Review of Systems: Yes all other systems are reviewed and are negative PMFSH Past Medical History Medical History Abdominal pain Anxiety and depression Benign essential hypertension Encounter for Medicare annual wellness exam Fracture of multiple ribs of left side Gynecomastia, male HIV positive Hypertension Hypertriglyceridemia Hypogonadotropic hypogonadism in male Morbid obesity Muscle twitching Obesity (BMI 30-39.9) Obstructive sleep apnea Opioid dependence Osteoarthritis Prediabetes Family History Family History Father HIV (human immunodeficiency virus infection) Mother Diabetes Glaucoma Family history: reviewed and not pertinent Surgical History Surgical History History of ankle surgery History of arthroscopy of left knee History of open reduction and internal fixation (ORIF) procedure Hx of knee surgery Social History Social History Household Members: Unknown / Unable to assess Housing: Unknown / Unable to assess Alcohol intake: current Alcohol intake frequency: 0-2 drinks per day Smoking Status: Current every day smoker Tobacco Type: Cigarette Packs Per Day: 0.5 Cigarettes Per Day: 10.0 Years Smoked: 22 years service: No Current occupational status: unemployed and disabled Meds Allergies Allergy/AdvReac Type Severity Reaction Status Date / Time RAISIN Allergy Severe SWELLING,HI Uncoded 06/11/20 18:47 VES Active Medications: Current Medications Generic Name Dose Route Start Last Admin Trade Name Freq PRN Reason Stop Dose Admin Acetaminophen 650 mg 07/03/20 11:03 Acetaminophen Oral Liquid 650 Mg/20.3 Ml Solution OG-TUBE Q6H PRN Fever & MILD PAIN Albuterol/Ipratropium 3 ml 07/03/20 08:00 07/03/20 13:24 Albuterol/Iprat 2.5/0.5mg 3 Ml Ampul.Neb INHALE Not Given RQ6H WHILE AWAKE AMRIT Fentanyl 100 mcg 07/03/20 10:55 Fentanyl Citrate/Pf 100 Mcg/2 Ml Vial IVPUSH Q5M PRN Ventilator synchrony Hydromorphone HCl 1 mg 07/03/20 01:50 07/03/20 05:18 Hydromorphone Hcl 1 Mg/Ml Syringe IVPUSH 1 mg Q2H PRN Administration Pain, Severe (Pain Scale 7-10) Hydromorphone HCl 1 mg 07/03/20 05:11 Hydromorphone Hcl 1 Mg/Ml Syringe IVPUSH Q2H PRN DISTRES Insulin Human Regular 100 unit in 100 mls @ 0 mls/hr 07/02/20 09:00 07/03/20 13:31 Myxredlin IVCONT 12 unit/hr .Q0M AMRIT 12 mls/hr Infusion As Directed Sodium Bicarbonate 150 meq/ 1,000 mls @ 150 mls/hr 07/03/20 01:00 07/03/20 14:08 Dextrose IV 150 mls/hr .Q6H40M AMRIT Administration Fentanyl 1,000 mcg in 100 mls @ 0 mls/hr 07/03/20 10:00 07/03/20 13:03 Sublimaze/Ns IVCONT 300 mcg/hr .Q0M AMRIT 30 mls/hr Administration Protocol Per Protocol Norepinephrine Bitartrate 8 mg in 250 mls @ 0 mls/hr 07/03/20 10:45 07/03/20 11:13 Levophed IVCONT 0.1 mcg/kg/min .Q0M AMRIT 19.5 mls/hr Administration Protocol Per Protocol Propofol 1,000 mg in 100 mls @ 0 mls/hr 07/03/20 10:45 07/03/20 12:35 Diprivan IVCONT 50 mcg/kg/min .Q0M AMRIT 31.2 mls/hr Administration Protocol Per Protocol Meropenem 1 gm/ Sodium 100 mls @ 100 mls/hr 07/03/20 13:00 07/03/20 14:03 Chloride IV Infused Q8H AMRIT Infusion Potassium Chloride 40 meq in 100 mls @ 25 mls/hr 07/03/20 13:00 07/03/20 1 3:03 IV 07/03/20 16:59 25 mls/hr ONCE ONE Administration Lorazepam 2 mg 07/03/20 12:10 07/03/20 12:35 Lorazepam 2 Mg/Ml Vial IVPUSH 2 mg Q1H PRN Administration agitation Pantoprazole Sodium 40 mg 07/03/20 13:26 07/03/20 13:40 Pantoprazole Sodium 40 Mg/10 Ml Vial IVPUSH 40 mg DAILY@0630 AMRIT Administration Home Medications Medication Instructions Recorded Confirmed Last Taken Type Descovy 1 tab PO DAILY 07/02/20 07/02/20 Unknown History Tivicay 1 tab PO DAILY 07/02/20 07/02/20 Unknown History Physical Exam Vital Signs: Vital Signs: Last Vital Signs Temp 100.9 F H 07/03/20 14:00 Pulse 119 H 07/03/20 14:00 Resp 51 H 07/03/20 14:00 BP 125/63 07/03/20 14:00 Pulse Ox 93 07/03/20 14:00 Oxygen Flow Rate 2 07/02/20 04:56 Body Mass Index 37.0 Const: General: cooperative HENMT: Head: Yes normal to inspection Mouth: Normal oral and palatal mucosa present Eyes: General: appearance normal, both eyes and all related structures Resp: Effort & Inspection: normal respiratory effort Cardio: Rate: regular rate Rhythm: regular rhythm GI: Palpation (GI): Firmness to palpation present (GI) Auscultation: Hypoactive bowel sounds present Skin: General skin exam: no rashes or lesions noted Neuro: Other: nonfocal Results Labs CBC & Chem 7: 07/03/20 10:59 07/03/20 11:00 Labs: Short CBC 07/03/20 07/03/20 Range/Units 05:20 10:59 WBC 6.4 6.7 (4.8-10.8) X10*3/uL Hgb 12.1 L 12.5 L (14.0-18.0) g/dl Hct 33.9 L D 33.7 L (42-52) % Plt Count 130 L 136 L (160-400) X10*3/uL BMP 07/02/20 07/02/20 07/03/20 17:14 21:44 00:32 Sodium 138 139 141 Potassium 4.4 3.8 3.9 Chloride 111 H 113 H 113 H Carbon Dioxide 8 L* D 7 L* 6 L* BUN 25 H 23 H 22 H Creatinine 1.74 H 1.13 1.27 Calcium 8.1 L 8.0 L 8.0 L 07/03/20 07/03/20 05:20 11:00 Sodium 144 146 H Potassium 3.0 L D 2.5 L* Chloride 113 H 113 H Carbon Dioxide 10 L* D 18 L BUN 22 H 19 H Creatinine 1.34 1.31 Calcium 8.0 L 7.9 L Liver Function 07/02/20 07/03/20 Range/Units 17:14 05:20 Total Bilirubin 0.7 (0.0-1.0) mg/dL AST 20 (5-37) U/L ALT 20 (0-40) U/L Alkaline Phosphatase 90 D (39-117) U/L Albumin 2.9 L 3.0 L (3.5-5.0) g/dL Microbiology Microbiology Results: Microbiology 07/02/20 03:47 Blood - Venous Blood Culture - Preliminary No growth after 24 hours. 07/02/20 03:47 Blood - Venous Blood Culture - Preliminary No growth after 24 hours. Assessment and Plan (1) Abdominal pain: Problem details: He has pancreatitis by lab testing and clinical symptoms ,but there are no signs of necrotizing pancreatitis on CT scan He is intubated There may be concern over developing gram negative infection related to pancreas,blood cultures negative so far Status: Acute Merepenem seem s appropriate at this time, duration possible 5 -7 d Await final blood culture and reCT scan abdomen if worsens Continue HIV meds
--- NOTE | 2020-07-03 14:52 | PC.NURSE ---
S/E Assumed care at 0700. Patient A&O x2, c/o of increased anxiety and shortness of breathing. Tachypnic RR 40-50's - breathing labored, accessory muscle use, abdominal breathing, sp02 98-100% on RA. VBGs 7.42/16/40/10. Bicard 18 - NA Bicard 150meq administering. Abdomen firm, distended, tender to touch, faint to absent bowel sounds throughout. Unknown last BM. Insulin gtt continued per MD titration. Urine o/p 60-100cc/hr. MD and general surgery at bedside. Patient intubated at 0945 - sedated with propofol, rocuronium, & fentanyl. Started on Propofol gtt and Fentanyl gtt both maxed out. ETT # 8, 25cm @ lip - Vent settings PC 22, rate 28, peep 12, 70% FIO2. 0940 BP 90/39 (56) - Levophed gtt started. K 2.5, Phos 1.5 - Kphos 30mmol administered, Pot Phld 40meq administered. Mag 1.8 - Mag 2g IV administered. OGT placed to intermitted suctions - 350cc total bilous output. Patient accept by [facility] - handoff given to Lindsay FLORENTINO. Transferred via [facility] - Nimbex 20mg IVP administered prior to transport. Propofol 100cc bottle given to [facility]. Rajiv Ohara updated by this MISHEL and MD.
--- NOTE | 2020-07-03 15:06 | PM.EVENT ---
Event Note Date of Service: 07/03/20 Event Note: The patient was eventually intubated NG tube was placed with note of 400 cc of bilious fluid consistent with ileus His abdomen now is much softer earlier and less distended Respiratory status seems much improved after intubation Repeat lactate is 1.3 which is within normal Discussed with director child abuse therapy- patient is to be transferred to a tertiary center because of his worsening acidosis of unclear etiology
[2020-07-03 15:14] LABS: Glucose, Whole Blood 246 mg/dL (60-115)
[2020-07-03] MEDS: Cisatracurium Besylate 20 MG/10 ML VIAL IVPUSH (15:27)
[2020-07-10 09:45] LABS: Glucose, Whole Blood 320 mg/dL (60-115)
--- NOTE | 2021-05-19 14:44 | P.DS_ITS ---
DS: Providers Provider Date of Service: 07/03/20 Attending physician on discharge: Mark Damian Discharging clinician: Mark Damian DS: Transfer Hospital Acceptance Reason for Transfer: Advanced surgical care Name of Facility: [facility] Accepting Provider: Dr. Tomlinson DS: Summary Hospital Course Hospital Course: TRANSFER SUMMARY DISCHARGE DIAGNOSES: 1. DKA. 2. Hypertriglyceridemia. 3. Pancreatitis. 4. MATT. 5. Metabolic acidosis. Mr. Lama is a 40-year-old male with a past medical history of? prediabetes, HIV, hepatitis-C,? hypertension, hypertriglyceridemia, opiate dependence, NENO, and morbid obesity.? He was BIBA to the [place] ED on 07/02/2020 bec of nausea and vomiting for the prior 2-3 days, and altered mental status that morning. In the emergency room, the patient was noted to be lethargic and delirious, tachypneic with Kussmaul respirations.? He was hypothermic to 92?.? His abdomen was soft, nondistended, moderately tender, but no guarding or rebound. Labs were notable for WBC 21, Na 118, K 54, bicarb <5, BUN/creat 25/2.5, gluc 1074, Ca 7.9, unremarkable LFTs, alk phos 155, alb 3.3. lipase 165, Triglycerides.? VBG showed pH 6.91, pCO2 9, BE -28.? COVID negative The patient was vol resuscitated, given insulin and a dose of Zosyn, and admitted to ICU, where vol resusc and the insulin drip continued.? Over the day, his glucose levels and bicarb corrected very slowly.? That night, his bicarb was only up to 7, his POC was down to the 200 level still on insulin drip at 10u/hr.? BUN/creat were down to 23/1.1.? He was still very tachypneic.? His abdomen became more distended and tender.? Noncontrast CT abdomen at 2am the following morning showed diffuse small bowel wall thickening, w diffuse stranding of the mesenteric fat.? Small amount of free fluid.? The patient was started on a bicarb drip and meropenem. That morning, he was more tachypneic, and was therefore intubated.? He was still tachypneic on the ventilator, despite high dose fentanyl and propofol drips.? Post-intubation, heart rate was 112, blood pressure is 135/75.? On pressure control at a rate of 28, pressures 22/12, 70%, respiratory rate was 43, tidal volume 430 cc, minute volume 19 L, peak inspiratory pressure 35, endtidal CO2 21, and sat 91%.? His temperature was 101.1 degrees.? No jugular venous distention with the head of the bed at 30 degrees.? Chest was clear to auscultation, with a normal expiratory phase heart rate and rhythm were regular, with normal-sounding S1 and S2, with no murmur or gallops.? The abdomen was significantly distended, a bit firm, and very tender.? Definite guarding, even through the propofol and fentanyl.? No bowel sounds.? The OG tube was draining green bilious fluid with a few coffee-grounds.? He had no peripheral edema. LABORATORY DATA:? White count that morning was 6.7, hemoglobin 12.5 (down from 15.8 on admission), platelet count 136 (down from 312).? At 11:00, sodium was 146, potassium 2.5, chloride 113, bicarb 18, BUN and creatinine 19/1.3, glucose 235, calcium 7.9.? Last lipase at 05:00 was 483, triglycerides were 794, albumin was 3.0, C reactive protein was 18, and procalcitonin was 4.6. The patient was seen by Dr. Miller, our general surgeon, who felt that there was no indication for surgery at that time, and recommended a follow-up CT scan at 24 hours if necessary. Given that the abdomen was increasingly distended and tender, it was thought he might need surgical exploration.? The patient was discussed with Dr. Tomlinson from [facility] surgery, and the patient was transferred there to his care. Time Spent with Patient Time attestation: Total time spent providing and/or coordinating discharge services: Discharge coordination time: Less than 30 minutes Quality: Stroke Does the patient have a stroke diagnosis?: No DS: Data Data Completed and Pending Completed studies during hospitalization [Text1]: Procedures Insertion of Endotracheal Airway into Trachea, Via Natural or Artificial Opening Endoscopic (07/02/20) Insertion of Infusion Device into Superior Vena Cava, Percutaneous Approach (07/02/20) Respiratory Ventilation, Less than 24 Consecutive Hours (07/02/20) Discharge Plan Discharge Patient Disposition: Home, Self-Care Discharge Medications: No Action lidocaine 4 % cream 1 appl topical TID PRN (Reason: pain) 30 Days Qty: 50 2RF Rx Instructions: as needed Externally Three times a day (DME) blood-glucose meter [FreeStyle Lite Meter] Kit See Rx Instructions .ROUTE .MEDSUPPLY Qty: 1 0RF Rx Instructions: TEST 2 TIMES DAILY hydrochlorothiazide 12.5 mg tablet 12.5 mg PO DAILY 30 Days Qty: 30 1RF FreeStyle Lite Strips Strip 1 strip miscellaneous BID Qty: 100 0RF lancets [FreeStyle Lancets] 28 gauge misc 28 gauge topical BID Qty: 100 0RF sertraline 100 mg tablet 100 mg PO DAILY Qty: 30 2RF diclofenac sodium 75 mg tablet,delayed release (DR/EC) 75 mg PO BID PRN (Reason: for pain) Qty: 30 2RF gabapentin 300 mg capsule 300 mg PO TID Qty: 90 2RF Tivicay 50 mg tablet 1 tab PO DAILY 0RF Descovy 200-25 mg tablet 1 tab PO DAILY 0RF Discharge Date/Time: 06/06/20 10:05
== END 2020-07-03 15:31 | disposition short-term general hospital (02) | DRG 637 ==
LOC: HO.ED 04:59 → HO.ICU 05:16
PROVIDERS: Physician Assistant Medical; Registered Nurse Community Health; Admitting Provider Internal Medicine Pulmonary Disease; Emergency Provider Student in an Organized Health Care Education/Training Program; PCP Internal Medicine; Visit Provider Anesthesiology
DX: E11.10 Type 2 diabetes mellitus with ketoacidosis without coma (principal); K85.90 Acute pancreatitis without necrosis or infection, unspecified; G93.41 Metabolic encephalopathy; N17.9 Acute kidney failure, unspecified; E87.2 Acidosis; F11.20 Opioid dependence, uncomplicated; E66.01 Morbid (severe) obesity due to excess calories; R68.0 Hypothermia, not associated with low environmental temperature; Z68.37 Body mass index [BMI] 37.0-37.9, adult; K75.81 Nonalcoholic steatohepatitis (NASH); E86.0 Dehydration; Z21 Asymptomatic human immunodeficiency virus [HIV] infection status; E11.43 Type 2 diabetes mellitus with diabetic autonomic (poly)neuropathy; K31.84 Gastroparesis; E78.1 Pure hyperglyceridemia; F17.210 Nicotine dependence, cigarettes, uncomplicated; Z71.6 Tobacco abuse counseling; Z20.822 Contact with and (suspected) exposure to COVID-19; Z79.899 Other long term (current) drug therapy
CPT/HCPCS: 36415; 71045; 74176; 80048; 80053; 80307; 81001; 82009; 82040; 82140; 82947; 83605; 83690; 83735; 84100; 84145; 84443; 84478; 85007; 85018; 85025; 85027; 85610; 85730; 86140; 87040; 87635; 93005; 94002; 94003; 96365; 96366; 96367; 96375; 99285; J0610; J1170; J1790; J2060; J2185; J2405; J2543; J3010; J3475; P9047

== ENCOUNTER 2020-10-04 10:17 | Outpatient (REF) | payer OTHER, SELFPAY ==
--- NOTE | 2020-10-04 10:24 | EMG_ITS ---
Right tibial and peroneal motor studies were performed. Right sural and superficial peroneal study was performed. Right tibial H-reflex was obtained and paraspinal muscles were tested with a needle. IMPRESSION: [id number] axonal sensory motor peripheral neuropathy. MD HENRY Miranda/FIDELINA / [id number]
[2020-10-04 11:17] LABS: MANUAL DIFF FLAG NO
[2020-10-04 11:49] LABS: Basophils Percent Auto 0.3 % (0-2); Eosinophils Absolute Auto 0.2 X10*3/uL (0.0-0.4); Eosinophils Percent Auto 2.7 % (0-4); Hematocrit 33.5 % (42-52); Hemoglobin 10.8 g/dl (14.0-18.0); Imm Gran Abs Auto 0.01 X10*3/uL (0.00-0.03); Imm Gran Pct Auto 0.2 % (0.0-0.4); Lymphocytes Absolute Auto 3.3 X10*3/uL (1.2-4.9); Lymphocytes Percent Auto 55.2 % (20-40); Mean Corpuscular HGB Conc 32.2 g/dl (31.0-36.0); Mean Corpuscular Hemoglobin 30.9 pg (27.0-33.0); Mean Corpuscular Volume 95.7 fL (80-98); Mean Platelet Volume 10.1 fL (9.4-12.4); Monocytes Absolute Auto 0.5 X10*3/uL (0.1-1.2); Monocytes Percent Auto 8.2 % (2-11); Neutrophils Percent Auto 33.4 % (45-73); Platelet Count 281 X10*3/uL (160-400); Red Cell Distribution Width 13.7 % (11.0-16.0)
[2020-10-04 11:55] LABS: Estimated Average Glucose 85 mg/dL; Hemoglobin A1c % 4.6 %
[2020-10-04 11:59] LABS: Alanine Aminotransferase 12 U/L (0-40); Albumin Level 2.7 g/dL (3.5-5.0); Alkaline Phosphatase 114 U/L (39-117); Anion Gap 14 (12-20); Aspartate Amino Transferase 17 U/L (5-37); Bilirubin Total 0.3 mg/dL (0.0-1.0); Blood Urea Nitrogen 14 mg/dL (9-16); Calcium 8.9 mg/dL (8.4-10.2); Carbon Dioxide 28 mmol/L (22-29); Chloride 102 mmol/L (96-108); Cholesterol 138 mg/dL; Estimated Glomerular Filt Rate > 60; Glucose Random 100 mg/dL (60-115); HDL Cholesterol 17 mg/dL; Potassium 4.2 mmol/L (3.3-5.1); Sodium 140 mmol/L (135-145); Total Protein 7.2 g/dL (6.5-8.0); Triglycerides 632 mg/dL
[2020-10-04 12:11] LABS: Glucose Urine UA NEG (NEG); Leukocyte Esterase Urine NEG (NEG); Nitrite Urine NEG (NEG); Specific Gravity - Urine >= 1.030 (1.005-1.025); Urine Blood NEG (NEG); Urine Ketones 5 MG/DL (NEG); Urine Protein NEG (NEG-TRACE)
[2020-10-04 12:15] LABS: Vitamin D 25-OH Total 10.7 ng/mL (>30)
[2020-10-04 12:23] LABS: Appearance Urine HAZY; Color Urine YELLOW
[2020-10-04 12:27] LABS: Folate 13.1 ng/mL (> or = 4.0); Vitamin B12 612 pg/mL (200-900)
== END 2020-10-04 10:18 | disposition home or self-care (01) ==
LOC: HO.NEURO 10:17
PROVIDERS: Nurse Practitioner Family; PCP Internal Medicine; Visit Provider Internal Medicine
DX: R25.3 Fasciculation (principal); N17.9 Acute kidney failure, unspecified; R19.7 Diarrhea, unspecified; E55.9 Vitamin D deficiency, unspecified; E78.1 Pure hyperglyceridemia; E66.9 Obesity, unspecified; R73.03 Prediabetes; Z90.49 Acquired absence of other specified parts of digestive tract
CPT/HCPCS: 36415; 80053; 80061; 81003; 82306; 82550; 82607; 82746; 83036; 84443; 85025; 95886; 95909

== ENCOUNTER 2023-10-23 18:56 | Emergency (ER) | payer OTHER, SELFPAY ==
[2023-10-23 19:06] VITALS: PULSE 14; RESP 16; BMI 24.4
--- NOTE | 2023-10-23 19:11 | ED.GENADULT ---
HPI - General Adult General Stated complaint: Ole, vu Time Seen by Provider: 10/23/23 19:04 Source: patient Mode of arrival: ambulatory Limitations: no limitations History of Present Illness ED Provider: Marla DANIELLE HPI narrative: 43-year-old male history of opiate use disorder, anxiety, depression, obesity, Noel hypertension, hepatitis-C, hepatic steatosis, HIV, presents to the emergency department status post nodding off while walking with his . He arrives the department very upset that he is here he states he does not have to be here. He is demanding that he leaves, he is refusing vital signs, physical exam. He is alert and oriented x4 and same mind clinically sober. He would like to leave and does not feel like he needs to be in the emergency department. Refusing detox. Related Data Home Medications ?Medication ?Instructions ?Recorded ?Confirmed dolutegravir 50 mg tablet (Tivicay) 1 tab PO DAILY 07/02/20 09/28/20 emtricitabine 200 mg-tenofovir 1 tab PO DAILY 07/02/20 09/28/20 alafenamide fumarate 25 mg tablet (Descovy) Previous Rx's ?Medication ?Instructions ?Recorded lidocaine 4 % topical cream 1 appl topical TID PRN pain 30 08/09/20 days #50 grams blood-glucose meter (FreeStyle #1 ea 09/12/20 Lite Meter kit) hydrochlorothiazide 12.5 mg tablet 12.5 mg PO DAILY 30 days #30 tabs 09/12/20 diclofenac sodium 75 mg 75 mg PO BID PRN for pain #30 tabs 07/03/22 tablet,delayed release gabapentin 300 mg capsule 300 mg PO TID #90 caps 08/07/22 blood sugar diagnostic (FreeStyle #100 strips 11/21/22 Lite Strips) sertraline 100 mg tablet 100 mg PO DAILY #30 tabs 01/23/23 free style lancets #1 ea 06/24/23 lancets 28 gauge (FreeStyle #100 ea 06/24/23 Lancets) Allergies Allergy/AdvReac Type Severity Reaction Status Date / Time RAISIN Allergy Severe SWELLING,HI Uncoded 10/23/23 19:10 VES Review of Systems Review of Systems: Yes all other systems are reviewed and are negative PMFSH Past Medical History Attestation statement: The following information was validated with the patient. Source: old records reviewed and nursing notes reviewed Medical History Neuropathic pain of right thigh Abdominal pain Diarrhea Abdominal pain Anxiety and depression Obesity (BMI 30-39.9) Benign essential hypertension Obstructive sleep apnea Muscle twitching Encounter for Medicare annual wellness exam Fracture of multiple ribs of left side HIV positive Hypertriglyceridemia Hypertension Opioid dependence Osteoarthritis Morbid obesity Prediabetes Gynecomastia, male Hypogonadotropic hypogonadism in male Surgical History History of open reduction and internal fixation (ORIF) procedure History of arthroscopy of left knee Hx of knee surgery History of ankle surgery Family History Family History Father HIV (human immunodeficiency virus infection) Mother Diabetes Glaucoma Other Substance abuse Social History Social History Household Members: Unknown / Unable to assess Housing: Apartment Alcohol intake: former Patient Tobacco Use Status: Current everyday Tobacco user Cigarette Packs Per Day: 0.5 Cigarettes Per Day: 10.0 Years Smoked: 22 years e-Cigarette/Vaping Use: Never Used service: No Current occupational status: unemployed and disabled Physical Exam ED Vital Signs: REFUSED RR: 14 Appearance: Alert.? Oriented X3.? No acute cardiopulmonary distress distress.? Head: Normocephalic, atraumatic, no step-offs or deformities CVS: Pulses normal.? Respiratory: No respiratory distress.? Skin: ? Normal skin color. Extremities: 5/5 strength to bilateral upper and lower extremities Neuro: Oriented X 3.? No motor deficit.? No sensory deficit. Course Reevaluation(s) Reevaluation #1: Patient left against medical advice he did take home Narcan with him. He knows how to use it he says he also has some at home. Patient refusing to stay. Not signing AMA paperwork. Escorted out by security due to patient being agitated. Time: 19:16 Medical Decision Making Medical Decision Making MDM Narrative: 43-year-old male presents status post nodding off actively using opiates. PE refused hands on exam hx and pe concerning for drug overdose. No signs of truama to head, neck, chest, abd, pelvis. Plan- patiet leaving AMA> Differential Diagnosis Differential Diagnoses: The differential diagnosis associated with the presentation includes hx and pe concerning for drug overdose. No signs of truama to head, neck, chest, abd, pelvis. Admission/Observation Consideration of admission/observation: Escalation of care including admission/observation considered No indication Chronic Conditions Patient?s care impacted by: Other (opiate use d/o, hep c. hiv ) Social Determinants Patient?s care significantly limited by Social Determinants of Health including: Inadequate housing, Low income, Alcoholism and drug addiction in family, Problems related to primary support group, Unemployment, Problems related to employment and Other Social Determinant of Health Discharge Plan Discharge Clinical Impression: Opiate misuse, Left against medical advice Patient Disposition: Home, Self-Care Instructions: Against Medical Advice (ED), Opioid Use Disorder (ED) Additional Instructions: Take your medications as prescribed. If you were prescribed antibiotics today, it is important that you take your medication to their entirety, do not skip any doses, do not finish them early. Follow-up with your primary care provider this week. Return to the emergency department with new or worsening symptoms. Such as fevers, chills, chest pain, shortness of breath, nausea, vomiting, dizziness, headache, vision changes, lethargy In case of emergency call 911 Prescriptions: No Action lidocaine 4 % cream 1 appl topical TID PRN (Reason: pain) 30 Days Qty: 50 2RF Rx Instructions: as needed Externally Three times a day (DME) blood-glucose meter [FreeStyle Lite Meter] Kit See Rx Instructions .ROUTE .MEDSUPPLY Qty: 1 0RF Rx Instructions: TEST 2 TIMES DAILY hydrochlorothiazide 12.5 mg tablet 12.5 mg PO DAILY 30 Days Qty: 30 1RF diclofenac sodium 75 mg tablet,delayed release (DR/EC) 75 mg PO BID PRN (Reason: for pain) Qty: 30 0RF gabapentin 300 mg capsule 300 mg PO TID Qty: 90 2RF (DME) FreeStyle Lite Strips Strip See Rx Instructions .ROUTE .COMPLEX Qty: 100 5RF Dose Instruction: USE ONE STRIP TO TEST BLOOD GLUCOSE TWO TIMES A DAY Rx Instructions: USE ONE STRIP TO TEST BLOOD GLUCOSE TWO TIMES A DAY sertraline 100 mg tablet 100 mg PO DAILY Qty: 30 0RF (DME) lancets [FreeStyle Lancets] 28 gauge misc See Rx Instructions .ROUTE .COMPLEX Qty: 100 12RF Dose Instruction: USE TWO TIMES A DAY Rx Instructions: USE TWO TIMES A DAY (DME) free style lancets See Rx Instructions .Route .MEDSUPPLY Qty: 1 0RF Hold Instructions: inactive Rx Instructions: As directed Tivicay 50 mg tablet 1 tab PO DAILY Descovy 200-25 mg tablet 1 tab PO DAILY Stand Alone Forms: Against Medical Advice Print Language: French
--- NOTE | 2023-10-23 19:13 | PC.NURSE ---
Upon arrival the pt ambulated with even and steady gait to bed from EMS stretcher. He was given water per request, had been requesting to leave since arrival. This RN went to bedside for vitals obtainment and a comment regarding the safety of the patient's children (he expressed concern) which he took offense to and began to point his finger in this RN's face and began to speak loudly. At this point security was at bedside for potential change number operator and MICHAELA Pineda came to bedside for primary evaluation. The pt refused to allow anyone to touch or fully assess him. The pt confirmed that he has narcan at home however did take the take home narcan provided by the PA. Pt was escorted out of the building by Security.
[2023-10-23 19:16] VITALS: BP 00/0; PULSE 0; RESP 16; TEMP -17.7; TEMP 0; O2SAT 0
--- OUTSIDE RECORDS SUMMARY | 2023-10-28 06:34 | XMS_ITS | Continuity of Care Document ---
Author Organization [facility] Address [address] [place] [address]- Care Team Providers Care Quilt Maker Name Role Phone Not on Staff, PCP Primary Care Physician Unavail able Encounter [facility] Date(s): 03/10/19 - 03/17/19 [facility] [address] [place] [address]- [facility] Attending Physician: Celso Bonner MD Referring Physician: Prosper Palumbo MD Allergies, Adverse Reactions, Alerts Substance Reaction Severity Status NKA Active Immunizations Given and Recorded Vaccine Date Status Refusal Reason hepatitis B adult vaccine 10/26/18 Recorded Boostrix (Tdap) (oldterm) 02/03/17 Given pneumococcal 13-valent vaccine 02/03/17 Given influenza virus vaccine, inactivated 1, 2 02/03/17 Given 1Result Comment: [02/03/2017] [facility] # [id number] 2Admin Note: Afluria quadrivalent Medications Aerochamber See Instructions, # 1 each, Maintenance, use with inhaler, 12/05/17 18:12:17 EDT, Compound Start Date: 12/05/17 Status: Ordered Afluria Quadrivalent 9224-1806 intramuscular suspension 0.5 mL, Intramuscular, Once, # 0.5 mL, 0 Refills, Soft Stop, 02/03/17 13:41:00 Start Date: 02/03/17 Status: Ordered albuterol CFC free 90 mcg/inh inhalation aerosol 2, puffs, Inhalation, Every 4 hours, PRN, # 25 Gm, Refills 0, Tot. Refills 0, Maintenance, 12/05/1817:12:19 EDT, Aerosol, Print Requisition, Compound Start Date: 12/05/17 Stop Date: 12/15/17 Status: Ordered Augmentin 875 mg-125 mg oral tablet 1 tablet, By Mouth, Every 12 hours, for 6 days, # 12 tablet, 0 Refills, Acute 03/18/19 14:29:00 EST, 03/12/19 14:29:00 EST, Tablet, [facility], 178, cm, 03/12/19 7:44:00 EST, Height, 117, kg, 03/10/19 20:14:00 EST, Dry Weight Start Date: 03/12/19 Stop Date: 03/18/19 Status: Ordered Boostrix (Tdap) intramuscular suspension 0.5 mL, Intramuscular, Once, # 0.5 mL, 0 Refills, Soft Stop, 02/03/17 13:41:00, Suspension Start Date: 02/03/17 Status: Ordered Descovy 200 mg-25 mg oral tablet 1 tablet, By Mouth, Daily, # 90 tablet, 3 Refills, Maintenance, 03/29/18 12:51:52 EST, Tablet, 1 tablet By Mouth Daily Start Date: 03/29/18 Status: Ordered Methadone See Instructions, By Mouth Oral solution 113 mg daily, 0 Refills, Maintenance, 03/10/19 20:23:00 EST, Partial fill upon patient request Start Date: 03/10/19 Status: Ordered Prevnar 13 intramuscular suspension 0.5 mL, Intramuscular, Once, # 1 each, 0 Refills, Soft Stop, 02/03/17 13:41:00, Suspension Start Date: 02/03/17 Status: Ordered Tivicay 50 mg oral tablet 1 tablet = 50 mg, By Mouth, Daily, # 90 tablet, 3 Refills, Maintenance, 03/29/18 12:52:25 EST, Tablet Start Date: 03/29/18 Status: Ordered Viagra 100 mg oral tablet 1 tablet = 100 mg, By Mouth, Daily, PRN as needed for erectile dysfunction, # 5 tablet, 1 Refills, Maintenance, 03/16/19 9:32:00 EST, Tablet, [facility], 178, cm, 03/16/19 9:01:00 EST, Height, 117, kg, 03/10/19 20:14:00 EST, Dry Weight Start Date: 03/16/19 Status: Ordered Vital Signs Most recent to oldest [Reference Range]: 1 2 3 Weight 122.4 kg (03/10/19 11:24 AM) Oxygen Saturation [94-100 %] 87 % *L* (03/10/19 12:10 PM) 87 % *L* (03/10/19 11:53 AM) 93 % *L* (03/10/19 11:24 AM) Pulse Rate [55-90 bpm] 81 bpm (03/10/19 12:10 PM) 70 bpm (03/10/19 11:24 AM) Blood Pressure [90-138/55-84 mm Hg] 126/76mm Hg (03/10/19 11:24 AM) Respiratory Rate [16-30 br/min] 18 br/min (03/10/19 11:24 AM) Temperature [96.8-100.4 DegF] 98.3 DegF (03/10/19 11:24 AM) Liters per Minute 2 L/min (03/10/19 12:10 PM) Mode of Delivery (Oxygen) Nasal cannula (03/10/19 12:10 PM) Room air (03/10/19 11:53 AM) Room air (03/10/19 11:24 AM) Blood pressure sites Arm, left (03/10/19 11:24 AM) Temperature Route Oral (03/10/19 11:24 AM) Dry Weight 122.4 kg (03/10/19 11:24 AM) Dry Weight Obtained Via Standing scale (03/10/19 11:24 AM) Social History Social History Type Response Smoking Status 5-9 cigarettes (betw een 1/4 to 1/2 pack)/day in last 30 days entered on: 01/19/18 Sex
--- OUTSIDE RECORDS SUMMARY | 2023-10-28 06:34 | XMS_ITS | Continuity of Care Document ---
Author Organization [facility] ter Address [address] [place] [id number]- Care Team Providers Care Social Worker Clinical Name Role Phone William MOREIRA, Sudeep Espinosa Primary Care Physi chrissy [place] [facility] [place] - 08/26/[address] [address]- Attending Physician: Not on Staff, Attending MD Admitting Physician: Not on Staff, Admitting MD Referring Physician: Not on Staff, Referring MD Allergies, Adverse Reactions, Alerts Substance Reaction Severity Status NKA Active Immunizations Given and Recorded Vaccine Date Status Refusal Reason hepatitis B adult vaccine 10/26/18 Recorded Boostrix (Tdap) (oldterm) 02/03/17 Given pneumococcal 13-valent vaccine 02/03/17 Given influenza virus vaccine, inactivated 1, 2 02/03/17 Given 1Result Comment: [02/03/2017] [facility] # 3332-317-02 2Admin Note: Afluria quadrivalent Medications acetaminophen 500 mg oral tablet 1 tablet = 500 mg, By Mouth, Every 4 hours, PRN as needed for fever, 0 Refills, Maintenance, 07/04/20 11:10:00 EDT, Tablet, ; Start Date: 07/04/20 Status: Ordered Aerochamber See Instructions, # 1 each, Maintenance, use with inhaler, 12/05/17 18:12:17 EDT, Compound Start Date: 12/05/17 Status: Ordered Combivent Respimat 20 mcg-100 mcg/inh inhalation aerosol 1 puffs, Inhalation, 4 times a day, # 4 Gm, 0 Refills, Maintenance, 08/14/20 10:57:00 EDT, Aerosol,Partial fill upon patient request if the prescription is for a schedule II opioid drug. Start Date: 08/14/20 Status: Ordered Descovy 200 mg-25 mg oral tablet 1 tablet, By Mouth, Daily, # 30 tablet, 0 Refills, Maintenance, 08/08/20 13:39:00 EDT, Tablet, Partial fill upon patient request if the prescription is for a schedule II opioid drug. Start Date: 08/08/20 Status: Ordered Descovy 200 mg-25 mg oral tablet 1 tablet, By Mouth, Daily, Maintenance, 07/04/20 11:02:00 EDT, Tablet, ; Start Date: 07/04/20 Status: Ordered Dextrose 50% Inj Syringe (25Gm) = 12.5 Gm, IV Push Slowly, Every 20 minutes, PRN Blood Glucose, 50 to 70 and patient is NOT AWAKE or NPO; Repeat Glucose POC in 20 minutes, 0 Refills, Maintenance, 08/01/20 8:44:00 EDT, Injection, Partial fill upon patient request if the prescription... Start Date: 08/01/20 Status: Ordered docusate sodium 100 mg oral capsule 100 mg, 1, capsule, By Mouth, 2 times a day, Refills 0, Maintenance, 08/01/20 8:44:00 EDT, Partial fill upon patient request if the prescription is for a schedule II opioid drug. Start Date: 08/01/20 Status: Ordered Duoneb Inhalation Solution 1, vials, BAND Nebulizer, 4 times a day, Refills 0, Maintenance, 08/01/20 8:44:00 EDT, Inhalation Solution Start Date: 08/01/20 Status: Ordered gabapentin 300 mg oral capsule 300 mg, 1, capsule, By Mouth, 2 times a day, # 30 capsule, Refills 0, Tot. Refills 0, Maintenance, 08/01/20 8:43:00 EDT, Route to Pharmacy Electronically, [facility], Partial fill upon patient request if the prescription is for a schedul... Start Date: 08/01/20 Status: Ordered Insulin Lispro 4-12 units, Subcutaneous Injection, 3 times a day before meals and bedtime, 0 Refills, Maintenance,08/01/20 8:44:00 EDT, Injection, Partial fill upon patient request if the prescription is for a schedule II opioid drug. Start Date: 08/01/20 Status: Ordered Lantus Inj 0.38 mL = 38 units, Subcutaneous Injection, Daily in AM, 0 Refills, Maintenance, 08/01/20 8:44:00 EDT, Injection, Partial fill upon patient request if the prescription is for a schedule II opioid drug. Start Date: 08/01/20 Status: Ordered magnesium oxide 400 mg oral tablet 1 tablet = 400 mg, By Mouth, 2 times a day, 0 Refills, Maintenance, 08/01/20 8:44:00 EDT, Tablet, Partial fill upon patient request if the prescription is for a schedule II opioid drug. Start Date: 08/01/20 Status: Ordered methadone 10 mg/5 mL oral solution 9.5 mL = 19 mg, By Mouth, Every 8 hours, # 120 mL, 0 Refills, Maintenance, 08/01/20 9:12:00 EDT, Solution, Partial fill upon patient request if the prescription is for a schedule II opioid drug. Start Date: 08/01/20 Status: Ordered Multivit Therapeutic/Minerals Tablet 1 tablet, By Mouth, Daily, 0 Refills, Maintenance, 08/01/20 8:44:00 EDT, Tablet, Partial fill upon patient request if the prescription is for a schedule II opioid drug. Start Date: 08/01/20 Status: Ordered nalOXONE 0.4mg/mL IV (NICU) Once, 0 Refills, Maintenance, 08/08/20 13:41:00 EDT, Partial fill upon patient request if the prescription is for a schedule II opioid drug. Start Date: 08/08/20 Status: Ordered pantoprazole 40 mg oral delayed release tablet = 40 mg, By Mouth, Every 12 hours, 0 Refills, Maintenance, 08/01/20 8:44:00 EDT, EC Tablet Start Date: 08/01/20 Status: Ordered sertraline 50 mg oral tablet 2 tablet = 100 mg, By Mouth, Daily, 0 Refills, Maintenance, 08/01/20 8:43:00 EDT, Tablet, Partial fill upon patient request if the prescription is for a schedule II opioid drug. Start Date: 08/01/20 Status: Ordered thiamine 100 mg oral tablet 100 mg, 1, tablet, By Mouth, Daily, Refills 0, Maintenance, 08/01/20 8:45:00 EDT, Partial fill uponpatient request if the prescription is for a schedule II opioid drug. Start Date: 08/01/20 Status: Ordered Tivicay 50 mg oral tablet 1 tablet = 50 mg, By Mouth, Daily, Maintenance, 07/04/20 11:09:00 EDT, Tablet, ; Start Date: 07/04/20 Status: Ordered Viagra 100 mg oral tablet 1 tablet = 100 mg, By Mouth, Daily, PRN as needed for erectile dysfunction, # 5 tablet, 1 Refills, Maintenance, 03/16/19 9:32:00 EST, Tablet, [facility], 178, cm, 03/16/19 9:01:00 EST, Height, 117, kg, 03/10/19 20:14:00 EST, Dry Weight Start Date: 03/16/19 Status: Ordered Vitamin C Tablet = 500 mg, By Mouth, Daily, 0 Refills, Maintenance, 08/01/20 8:44:00 EDT, Tablet, Partial fill upon patient request if the prescription is for a schedule II opioid drug. Start Date: 08/01/20 Status: Ordered Problem List Condition Effective Dates Status Health Status Inform ant Peritonitis/ feculent(Confirmed) Active Social History Social History Type Response Smoking Status 5-9 cigarettes (betw een 1/4 to 1/2 pack)/day in last 30 days entered on: 01/19/18 Sex
--- OUTSIDE RECORDS SUMMARY | 2023-10-28 06:34 | XMS_ITS | Continuity of Care Document ---
Author Organization [facility] Address [address] [place] [address]- Care Team Providers Care Mortgage Or Loan Underwriter Name Role Phone William MOREIRA, Sudeep Espionsa Primary Care Physi [facility] [place] [facility] [place](s): 02/21/21 - 05/18/21 [facility] [address] [place] [address] Attending Physician: Tre Barksdale MD Admitting Physician: Tre Barksdale MD Referring Physician: Sudeep Thomas NP Allergies, Adverse Reactions, Alerts No Known Allergies Immunizations Given and Recorded Vaccine Date Status Refusal Reason hepatitis B adult vaccine 10/26/18 Recorded Boostrix (Tdap) (oldterm) 02/03/17 Given pneumococcal 13-valent vaccine 02/03/17 Given influenza virus vaccine, inactivated 1, 2 02/03/17 Given 1Result Comment: [02/03/2017] [facility] # [id number] 2Admin Note: Afluria quadrivalent [...] oral tablet 1 tablet, By Mouth, Daily, Pt needs to reschedule appt, # 30 tablet, 1 Refills, Maintenance, 05/14/21 12:39:00 EST, Tablet, [facility], Partial fill upon patient request if the prescription is for a schedule II opioid drug., 1 tablet... Start Date: 05/14/21 Stop Date: 07/13/21 Status: Ordered Descovy 200 mg-25 mg oral [...] 08/01/20 8:43:00 EDT, Route to Pharmacy Electronically, [facility], Partial fill upon patient [...] tablet = 50 mg, By Mouth, Daily, Pt needs to reschedule appointment., # 30 tablet, 1 Refills, Maintenance, 05/14/21 12:39:00 EST, Tablet, [facility], Partial fill upon patient request if the prescription is for a schedule II opioid... Start Date: 05/14/21 Stop Date: 07/13/21 Status: Ordered Viagra 100 mg oral tablet 1 tablet = 100 mg, By Mouth, Daily, PRN as needed for erectile dysfunction, # 5 tablet, 1 Refills, Maintenance, 03/16/19 9:32:00 EST, Tablet, [facility], 178, cm, 03/16/19 9:01:00 [...]
--- OUTSIDE RECORDS SUMMARY | 2023-10-28 06:34 | XMS_ITS | Continuity of Care Document ---
Author Organization [facility] Address [address] [place] [address]- Care Team Providers Care Patient Centered Care Specialist Name Role Phone William MOREIRA, Sudeep Espinosa Primary Care Physi chrissy Encounter [facility] [place] Date(s): 01/04/20 - 03/31/20 [facility] [address] [place] [id number] Attending Physician: Tre Barksdale MD Admitting Physician: Tre Barksdale MD Referring Physician: Sudeep Thomas NP Allergies, Adverse Reactions, Alerts Substance Reaction Severity Status NKA Active Immunizations Given and Recorded Vaccine Date Status Refusal Reason hepatitis B adult vaccine 10/26/18 Recorded Boostrix (Tdap) (oldterm) 02/03/17 Given pneumococcal 13-valent vaccine 02/03/17 Given influenza virus vaccine, inactivated 1, 2 02/03/17 Given 1Result Comment: [02/03/2017] [facility] # [id number] 2Admin Note: Afluria quadrivalent Medications Aerochamber See Instructions, # 1 each, Maintenance, use with inhaler, 12/05/17 18:12:17 EDT, Compound Start Date: 12/05/17 Status: Ordered Afluria Quadrivalent 9214-3007 intramuscular suspension 0.5 mL, Intramuscular, Once, # 0.5 mL, 0 Refills, Soft Stop, 02/03/17 13:41:00 Start Date: 02/03/17 Status: Ordered albuterol CFC free 90 mcg/inh inhalation aerosol 2, puffs, Inhalation, Every 4 hours, PRN, # 25 Gm, Refills 0, Tot. Refills 0, Maintenance, 12/05/1817:12:19 EDT, Aerosol, Print Requisition, Compound Start Date: 12/05/17 Stop Date: 12/15/17 Status: Ordered Boostrix (Tdap) intramuscular suspension 0.5 mL, Intramuscular, Once, # 0.5 mL, 0 Refills, Soft Stop, 02/03/17 13:41:00, Suspension Start Date: 02/03/17 Status: Ordered Descovy 200 mg-25 mg oral tablet 1 tablet, By Mouth, Daily, # 30 tablet, 5 Refills, Maintenance, 03/19/20 10:35:00 EST, Tablet, [facility], 1 tablet By Mouth Daily,x30 days, 178, cm, 03/16/19 9:01:00 EST, Height, 117, kg, 03/10/19 20:14:00 EST, Dry Weight Start Date: 03/19/20 Stop Date: 09/15/20 Status: Ordered Methadone See Instructions, By Mouth [...] = 50 mg, By Mouth, Daily, # 30 tablet, 5 Refills, Maintenance, 03/19/20 10:35:00 EST, Tablet, [facility], 178, cm, 03/16/19 9:01:00 EST, Height, 117, kg, 03/10/19 20:14:00 EST, Dry Weight Start Date: 03/19/20 Stop Date: 09/15/20 Status: Ordered Viagra 100 mg oral tablet 1 tablet = 100 mg, By Mouth, Daily, PRN as needed for erectile dysfunction, # 5 tablet, 1 Refills, Maintenance, 03/16/19 9:32:00 EST, Tablet, [facility], 178, cm, 03/16/19 9:01:00 EST, Height, 117, kg, 03/10/19 20:14:00 EST, Dry Weight Start Date: 03/16/19 Status: Ordered Social History Social History Type Response Smoking Status 5-9 cigarettes (betw een 1/4 to 1/2 pack)/day in last 30 days entered on: 01/19/18 Sex
--- OUTSIDE RECORDS SUMMARY | 2023-10-28 06:34 | XMS_ITS | Continuity of Care Document ---
Author Organization [facility] Address [address] [place] [address]- Care Team Providers Care Fountain Pen Turner Name Role Phone William MOREIRA, Sudeep Espinosa Primary Care Physi [facility] Encounter [facility] Date(s): 03/01/20 - 03/31/20 [facility] [address] [place] [id number] Attending Physician: AdmEvan weston Admitting Physician: AdmtrEvan Referring Physician: Admtr, Ar8 Allergies, Adverse Reactions, Alerts Substance Reaction Severity Status NKA Active Immunizations Given and Recorded Vaccine Date Status Refusal Reason hepatitis B adult vaccine 10/26/18 Recorded Boostrix (Tdap) (oldterm) 02/03/17 Given pneumococcal 13-valent vaccine 02/03/17 Given influenza virus vaccine, inactivated 1, 2 02/03/17 Given 1Result Comment: [02/03/2017] [facility] # [id number] 2Admin Note: Afluria quadrivalent Medications Aerochamber See Instructions, # 1 each, Maintenance, use with inhaler, 12/05/17 18:12:17 EDT, Compound Start Date: 12/05/17 Status: Ordered Afluria Quadrivalent [id number] intramuscular suspension 0.5 mL, Intramuscular, Once, # [...] 5 Refills, Maintenance, 03/19/20 10:35:00 EST, Tablet, [facility], 1 tablet By Mouth [...] 5 Refills, Maintenance, 03/19/20 10:35:00 EST, Tablet, [facility], 178, cm, 03/16/19 9:01:00 EST, Height, 117, kg, 03/10/19 20:14:00 EST, Dry Weight Start Date: 03/19/20 Stop Date: 09/15/20 Status: Ordered Viagra 100 mg oral tablet 1 tablet = 100 mg, By Mouth, Daily, PRN as needed for erectile dysfunction, # 5 tablet, 1 Refills, Maintenance, 03/16/19 9:32:00 EST, Tablet, [facility], 178, cm, 03/16/19 9:01:00 EST, Height, 117, kg, 03/10/19 20:14:00 EST, Dry Weight Start Date: 03/16/19 Status: Ordered Social History Social History Type Response Smoking Status 5-9 cigarettes (betw een 1/4 to 1/2 pack)/day in last 30 days entered on: 01/19/18 Sex
--- OUTSIDE RECORDS SUMMARY | 2023-10-28 06:34 | XMS_ITS | Continuity of Care Document ---
Author Organization [facility] Address [address] [place] [address]- Care Team Providers Care Fly Winder Name Role Phone Hiram Romero MD Primary Care Physician [phone] [place] [facility] [place]22 [facility] [address] [place] [id number] Attending Physician: Evan Andrea Admitting Physician: Evan Andrea Referring Physician: AdmtrEvan Allergies, Adverse Reactions, Alerts No Known Allergies Immunizations Given and Recorded Vaccine Date Status Refusal Reason hepatitis B adult vaccine 10/26/18 Recorded Boostrix (Tdap) (oldterm) 02/03/17 Given pneumococcal 13-valent vaccine 02/03/17 Given influenza virus vaccine, inactivated 1, 2 02/03/17 Given 1Result Comment: [02/03/2017] [facility] # [id number] 2Admin Note: Afluria quadrivalent Medications acetaminophen 500 mg oral tablet 1 tablet = 500 mg, By Mouth, Every 4 hours, PRN as needed for fever, 0 Refills, Maintenance, 07/04/20 11:10:00 EDT, Tablet, ; Start Date: 07/04/20 Status: Ordered Aerochamber See Instructions, # 1 each, Maintenance, use with inhaler, 12/05/17 18:12:17 EDT, Compound Start Date: 12/05/17 Status: Ordered Biktarvy oral tablet 1 tablet, By Mouth, Daily, # 30 tablet, 3 Refills, Maintenance, 02/11/22 14:06:00 EST, Tablet, [facility], Partial fill upon patient request if the prescription is for a schedule II opioid drug., 1 tablet By Mouth Daily,x30 days, 177.... Start Date: 02/11/22 Stop Date: 06/11/22 Status: Ordered Combivent Respimat 20 mcg-100 mcg/inh [...] 08/01/20 8:43:00 EDT, Route to Pharmacy Electronically, [facility], Partial fill upon patient [...] opioid drug. Start Date: 08/01/20 Status: Ordered Viagra 100 mg oral tablet 1 tablet = 100 mg, By Mouth, Daily, PRN as needed for erectile dysfunction, # 5 tablet, 1 Refills, Maintenance, 03/16/19 9:32:00 EST, Tablet, [facility], 178, cm, 03/16/19 9:01:00 EST, Height, 117, kg, 03/10/19 20:14:00 EST, Dry Weight Start Date: 03/16/19 Status: Ordered Vitamin C Tablet = 500 mg, By Mouth, Daily, 0 Refills, Maintenance, 08/01/20 8:44:00 EDT, Tablet, Partial fill upon patient request if the prescription is for a schedule II opioid drug. Start Date: 08/01/20 Status: Ordered Problem List Condition Confirmation Course Effective Dates Status Health St [facility] Informant Peritonitis/ feculent Confirmed Active Social History Social History Type Response Smoking Status 5-9 cigarettes (betw een 1/4 to 1/2 pack)/day in last 30 days entered on: 01/19/18 Sex Patient Care team information Care Team Personnel Name: Cayetano Campos RN Position: [facility] RN Member Role: Primary Care Nurse Name: Hiram Romero MD Position: Reference Physician Member Role: PCP Address: Address: [address] [place] [address] Name: Jarek Meyer RN Position: [facility] ED RN W/OE and Tasks Member Role: Primary Care Nurse Name: Monica Angeles RN Position: S RN Member Role: Primary Care Nurse Name: Conchita Pathak RN Position: [facility] RN Supv Member Role: Primary Care Nurse Name: Torres Han RN Position: S RN Member Role: Primary Care Nurse Name: Lukasz Abdalla RN Position: S RN Member Role: Primary Care Nurse Name: Nichelle Mckenzie RN Position: S RN Member Role: Primary Care Nurse Name: Lela Helm RN Position: S RN Member Role: Primary Care Nurse Name: Abbie Natarajan RN Position: S RN Member Role: Primary Care Nurse Name: Tram Snider Position: S RN Member Role: Primary Care Nurse Name: Anthony Sam RN Position: [facility] RN Supv Member Role: Primary Care Nurse Name: Jinny Castellanos RN Position: [facility] RN Member Role: Primary Care Nurse Name: Franchesca Hurley RN Position: [facility] RN Member Role: Primary Care Nurse Name: Denise Wilkins RN Position: [facility] RN Member Role: Primary Care Nurse Name: Rebeca Mays RN Position: [facility] RN Member Role: Primary Care Nurse Name: Hilaria Garduno RN Position: [facility] RN Member Role: Primary Care Nurse Name: Javy Butcher MD Position: [facility] Infectious Disease MD Member Role: Lifetime Consulting Physician Name: Janneth Dawn RN Position: [facility] RN Member Role: Primary Care Nurse Name: Chris Sanders RN Position: [facility] RN Supv Member Role: Primary Care Nurse Care Team Related Persons Name: AMARILIS WINSLOW Address: home [address] [place] [id number] Name: KENNEDY LELA Address: [place] [address]
--- OUTSIDE RECORDS SUMMARY | 2023-10-28 06:35 | XMS_ITS | Continuity of Care Document ---
Author Organization [facility] Address [address] [place] [address]- Care Team Providers Care Form Tamping Machine Operator Name Role Phone Hiram Romero MD Primary Care Physician [phone] Encounter [facility] [place] Date(s): 05/06/22 - 06/28/22 [facility] [address] [place] [id number] Attending Physician: Tre Barksdale MD Admitting Physician: Tre Barksdale MD Referring Physician: Hiram Romero MD Allergies, Adverse Reactions, Alerts No Known Allergies Immunizations Given and Recorded Vaccine Date Status Refusal Reason hepatitis B adult vaccine 10/26/18 Recorded Boostrix (Tdap) (oldterm) 02/03/17 Given pneumococcal 13-valent vaccine 02/03/17 Given influenza virus vaccine, inactivated 1, 2 02/03/17 Given 1Result Comment: [02/03/2017] [facility] # [id number] 2Admin Note: Afluria quadrivalent Medications [...] 3 Refills, Maintenance, 02/11/22 14:06:00 EST, Tablet, [facility], Partial fill upon patient [...] 08/01/20 8:43:00 EDT, Route to Pharmacy Electronically, [facility], Partial fill upon patient request if [...] 1 Refills, Maintenance, 03/16/19 9:32:00 EST, Tablet, [facility], 178, cm, 03/16/19 9:01:00 [...] Team Personnel Name: Cayetano Campos RN Position: [facility] RN Member Role: Primary Care Nurse Name: Hiram Romero MD Position: Reference Physician Member Role: PCP Address: Address: [address] [place] [address] [place] [id number] Name: Jarek Meyer RN Position: [facility] ED RN W/OE and Tasks Member Role: Primary Care Nurse Name: Monica Angeles RN Position: S RN Member Role: Primary Care Nurse Name: Conchita Pathak RN Position: [facility] RN Supv Member Role: Primary Care Nurse [...] Care Nurse Name: Anthony Sam RN Position: [facility] RN Supv Member Role: Primary Care Nurse Name: Jinny Castellanos RN Position: [facility] RN Member Role: Primary Care Nurse Name: Franchesca Hurley RN Position: [facility] RN Member Role: Primary Care Nurse Name: Denise Wilkins RN Position: [facility] RN Member Role: Primary Care Nurse Name: Rebeca Mays RN Position: [facility] RN Member Role: Primary Care Nurse Name: Hilaria Garduno RN Position: [facility] RN Member Role: Primary Care Nurse Name: Javy Butcher MD Position: [facility] Infectious Disease MD Member Role: Lifetime Consulting Physician Name: Janneth Dawn RN Position: [facility] RN Member Role: Primary Care Nurse Care Team Related Persons Name: AMARILIS WINSLOW Address: home [address] [place] [id number] Name: MARCIA LELA Address: [place] [address]
--- OUTSIDE RECORDS SUMMARY | 2023-10-28 06:35 | XMS_ITS | Continuity of Care Document ---
Author Organization [facility] Address [address] [place] [address] [address] [place] [address]- Care Team Providers Care Brass Molder Name Role Phone William MOREIRA, Sudeep Espinosa Primary Care Physi chrissy Encounter [facility] Date(s): 08/14/20 - 09/13/[address] [place], [place] [address] Attending Physician: AdmEvan weston Admitting Physician: AdmtrEvan Referring Physician: Admtr, Ar8 Allergies, Adverse Reactions, Alerts Substance Reaction Severity Status NKA Active Immunizations Given and Recorded Vaccine Date Status Refusal Reason hepatitis B adult vaccine 10/26/18 Recorded Boostrix (Tdap) (oldterm) 02/03/17 Given pneumococcal 13-valent vaccine 02/03/17 Given influenza virus vaccine, inactivated 1, 2 02/03/17 Given 1Result Comment: [02/03/2017] [facility] # [id number] 2Admin Note: Afluria quadrivalent Medications [...] 08/01/20 8:43:00 EDT, Route to Pharmacy Electronically, [facility], Partial fill upon patient [...] 9:32:00 EST, Tablet, [facility], 178, cm, 03/16/19 9:01:00 [...]
--- OUTSIDE RECORDS SUMMARY | 2023-10-28 06:35 | XMS_ITS | Continuity of Care Document ---
Author Organization [facility] Address [address] [place] [address]- Care Team Providers Care Digital Media Designer Name Role Phone Prosper Palumbo MD Primary Care Physician [place] [facility] [place](s): 11/11/18 - 03/11/19 [facility] [address] [place] [address] [facility] Attending Physician: Javy Butcher MD Admitting Physician: Javy Butcher MD Referring Physician: Prosper Palumbo MD Allergies, Adverse Reactions, Alerts Substance Reaction Severity Status NKA Active Immunizations Given and Recorded Vaccine Date Status Refusal Reason hepatitis B adult vaccine 10/26/18 Recorded Boostrix (Tdap) (oldterm) 02/03/17 Given pneumococcal 13-valent vaccine 02/03/17 Given influenza virus vaccine, inactivated 1, 2 02/03/17 Given 1Result Comment: [02/03/2017] [facility] # [id number] 2Admin Note: Afluria quadrivalent Medications Aerochamber See Instructions, # 1 each, Maintenance, use with inhaler, 12/05/17 18:12:17 EDT, Compound Start Date: 12/05/17 Status: Ordered Afluria Quadrivalent [id number] intramuscular suspension 0.5 mL, Intramuscular, Once, # 0.5 mL, 0 Refills, Soft Stop, 02/03/17 13:41:00 Start Date: 02/03/17 Status: Ordered albuterol CFC free 90 mcg/inh inhalation aerosol 2, puffs, Inhalation, Every 4 hours, PRN, # 25 Gm, Refills 0, Tot. Refills 0, Maintenance, 12/05/1817:12:19 EDT, Aerosol, Print Requisition, Compound Start Date: 12/05/17 Stop Date: 10/9/18 Status: Ordered Artificial Tears preserved solution 2 drops, Eyes, Both, 2 times a day, PRN for dry eyes, # 30 mL, 0 Refills, Maintenance, 06/17/14 17:59:00, Solution Start Date: 06/17/14 Stop Date: 07/08/14 Status: Ordered Boostrix (Tdap) intramuscular suspension 0.5 mL, Intramuscular, Once, # 0.5 mL, 0 Refills, Soft Stop, 02/03/17 13:41:00, Suspension Start Date: 02/03/17 Status: Ordered Descovy 200 mg-25 mg oral tablet 1 tablet, By Mouth, Daily, # 90 tablet, 3 Refills, Maintenance, 03/29/18 12:51:52 EST, Tablet, 1 tablet By Mouth Daily Start Date: 03/29/18 Status: Ordered FLUoxetine 10 mg oral capsule 10 mg, 1, capsule, By Mouth, Daily, # 30 capsule, Refills 0, Maintenance, 03/10/19 17:29:00 EST Start Date: 03/10/19 Status: Ordered hydrOXYzine pamoate 50 mg oral capsule 1 capsule = 50 mg, By Mouth, Daily, 0 Refills, Maintenance, 03/10/19 17:29:00 EST, Capsule Start Date: 03/10/19 Status: Ordered imiquimod 5% topical cream 1 applicator, Topically, Every Thursday, Thursday and Thursday, # 12 each, 1 Refills, Maintenance, 02/06/17 14:55:03, 1 applicator Topically Every Thursday, Thursday and Thursday,x30 days Start Date: 02/06/17 Stop Date: 04/07/17 Status: Ordered Methadone See Instructions, By Mouth [...] EST, Tablet Start Date: 03/29/18 Status: Ordered Social History Social History Type Response Smoking Status 5-9 cigarettes (toiw een 1/4 to 1/2 pack)/day in last 30 days entered on: 01/19/18 Sex
--- OUTSIDE RECORDS SUMMARY | 2023-10-28 06:35 | XMS_ITS | Continuity of Care Document ---
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 Role Phone Hiram Romero MD Primary Care Physician [phone] Encounter [facility] [place] Date(s): 07/15/23 - 10/03/23 [facility] [address] [place] [address] Attending Physician: Tre Barksdale MD Admitting Physician: Tre Barksdale MD Referring Physician: Hiram Romero MD Allergies, Adverse Reactions, Alerts No Known Allergies Immunizations Given and Recorded Vaccine Date Status Refusal Reason influenza virus vaccine, inactivated 02/19/23 Give n influenza virus vaccine, inactivated 1, 2 02/03/17 Given hepatitis B adult vaccine 10/26/18 Recorded Boostrix (Tdap) (oldterm) 02/03/17 Given pneumococcal 13-valent vaccine 02/03/17 Given 1Result Comment: [02/03/2017] [facility] # [id number] 2Admin Note: Afluria quadrivalent [...] Daily, # 30 tablet, 5 Refills, Maintenance, 07/09/23 10:10:00 EDT, Tablet, [facility], Partial fill upon patient request if the prescription is for a schedule II opioid drug., 1 tablet By Mouth Daily,x30 days, 177.... Start Date: 07/09/23 Stop Date: 01/05/24 Status: Ordered Combivent Respimat 20 mcg-100 mcg/inh [...] 08/01/20 8:43:00 EDT, Route to Pharmacy Electronically, [facility], Partial fill upon patient [...] 1 Refills, Maintenance, 03/16/19 9:32:00 EST, Tablet, [facility], 178, cm, 03/16/19 9:01:00 [...] Team Personnel Name: Cayetano Campos RN Position: [facility] RN Member Role: Primary Care Nurse Name: Hiram Romero MD Position: Reference Physician Member Role: PCP Address: Address: [address] [place] [address] [place] [id number]- Name: Jarek Meyer RN Position: [facility] ED RN W/OE and Tasks Member Role: Primary Care Nurse Name: Monica Angeles RN Position: [facility] ED RN W/OE and Tasks Member Role: Primary Care Nurse Name: Conchita Pathak RN Position: [facility] RN Supv Member Role: Primary Care Nurse Name: Florencio Abdalla RN Position: [facility] RN Member Role: Primary Care Nurse Name: Nichelle Mckenzie RN Position: [facility] AMB Nurse Member Role: Primary Care Nurse Name: Lela Helm RN Position: [facility] RN Member Role: Primary Care Nurse Name: Abbie Natarajan RN Position: [facility] RN Member Role: Primary Care Nurse Name: Tram Snider RN Position: [facility] RN Member Role: Primary Care Nurse Name: Anthony Sam RN Position: [facility] RN Supv Member Role: Primary Care Nurse Name: Jinny Castellanos RN Position: [facility] RN Member Role: Primary Care Nurse Name: Franchesca Hurley RN Position: [facility] RN Member Role: Primary Care Nurse Name: Denise Wilkins RN Position: [facility] RN Member Role: Primary Care Nurse Name: Rebeca Mays RN Position: [facility] RN Member Role: Primary Care Nurse Name: Javy Butcher MD Position: [facility] Physician - Infectious Disease Member Role: Lifetime Consulting Physician Name: Janneth Dawn RN Position: [facility] RN Member Role: Primary Care Nurse Care Team Related Persons Name: AMARILIS WINSLOW Address: home [address] [place] [id number] Name: LELA KENNEDY Address: [place] [address]
--- OUTSIDE RECORDS SUMMARY | 2023-10-28 06:35 | XMS_ITS | Continuity of Care Document ---
Author Organization [facility] Address [address] [place] [address]- Care Team Providers Care Industrial Engineering Technologist Name Role Phone William MOREIRA, Sudeep Espinosa Primary Care Physi [facility] [place] Encounter [facility] Date(s): 07/02/21 - 08/01/21 [facility] [address] [place] [id number] Attending Physician: Evan Andrea Admitting Physician: AdmEvan weston Referring Physician: Admtr, Evan Allergies, Adverse Reactions, Alerts No Known Allergies [...] appt, # 30 tablet, 1 Refills, Maintenance, 07/15/21 9:58:00 EDT, Tablet, [facility], Partial fill upon patient request if the prescription is for a schedule II opioid drug., 1 tablet B... Start Date: 07/15/21 Stop Date: 09/13/21 Status: Ordered Descovy 200 mg-25 mg oral [...] 08/01/20 8:43:00 EDT, Route to Pharmacy Electronically, [facility], Partial fill upon patient request [...] appointment., # 30 tablet, 1 Refills, Maintenance, 07/15/21 9:58:00 EDT, Tablet, [facility], Partial fill upon patient request if the prescription is for a schedule II opioid d... Start Date: 07/15/21 Stop Date: 09/13/21 Status: Ordered Viagra 100 mg oral tablet 1 tablet = 100 mg, By Mouth, Daily, PRN as needed for erectile dysfunction, # 5 tablet, 1 Refills, Maintenance, 03/16/19 9:32:00 EST, Tablet, [facility], 178, cm, 03/16/19 9:01:00 EST, [...]
--- OUTSIDE RECORDS SUMMARY | 2023-10-28 06:35 | XMS_ITS | Continuity of Care Document ---
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 Name Role Phone Prosper Palumbo MD Primary Care Physician Encounter [facility] Date(s): 03/11/19 - 03/12/[address] [address] [facility] Encounter Diagnosis Right middle lobe pneumonia(Final) - 03/10/19 Influenza A(Final) - 03/10/19 Asthma(Final) - 03/10/19 Discharge Disposition: A-D/C Home Attending Physician: Rigoberto Stout MD Admitting Physician: Magalie Lopez DO Referring Physician: Not on Staff, Referring MD Allergies, Adverse Reactions, Alerts Substance Reaction Severity Status NKA Active Immunizations Given and Recorded Vaccine Date Status Refusal Reason hepatitis B adult vaccine 10/26/18 Recorded Boostrix (Tdap) (oldterm) 02/03/17 Given pneumococcal 13-valent vaccine 02/03/17 Given influenza virus vaccine, inactivated 1, 2 02/03/17 Given 1Result Comment: [02/03/2017] [facility] # [id number] 2Admin Note: Afluria quadrivalent Medications Aerochamber See Instructions, # 1 each, Maintenance, use with inhaler, 12/05/17 18:12:17 EDT, Compound Start Date: 12/05/17 Status: Ordered Afluria Quadrivalent 1180-4468 intramuscular suspension 0.5 mL, Intramuscular, Once, # [...] 03/18/19 14:29:00 EST, 03/12/19 14:29:00 EST, Tablet, [facility], 178, cm, 03/12/19 7:44:00 EST, [...] patient request Start Date: 03/10/19 Status: Ordered oseltamivir 75 mg oral capsule 1 capsule = 75 mg, By Mouth, 2 times a day, for 4 days, # 8 capsule, 0 Refills, Acute 03/16/19 14:31:00 EST, 03/12/19 14:31:00 EST, Capsule, [facility], 178, cm, 03/12/19 7:44:00 EST, Height, 117, kg, 03/10/19 20:14:00 EST, Dry Weight Start Date: 03/12/19 Stop Date: 03/16/19 Status: Ordered predniSONE 20 mg oral tablet 2 tablet = 40 mg, By Mouth, Daily, for 4 days, # 8 tablet, 0 Refills, Acute 03/16/19 14:27:00 EST, 03/12/19 14:27:00 EST, Tablet, [facility], 178, cm, 03/12/19 7:44:00 EST, Height, 117,kg, 03/10/19 20:14:00 EST, Dry Weight Start Date: 03/12/19 Stop Date: 03/16/19 Status: Ordered Prevnar 13 intramuscular suspension 0.5 mL, Intramuscular, Once, # 1 each, 0 Refills, Soft Stop, 02/03/17 13:41:00, Suspension Start Date: 02/03/17 Status: Ordered Tivicay 50 mg oral tablet 1 tablet = 50 mg, By Mouth, Daily, # 90 tablet, 3 Refills, Maintenance, 03/29/18 12:52:25 EST, Tablet Start Date: 03/29/18 Status: Ordered Results Orders for Microbiology Reports Name Date Blood Culture 03/10/19 Blood Culture #2 03/10/19 Microbiology Reports TEST:Blood Culture, Second Order STATUS:Unauthenticated BODY SITE: SOURCE:Blood COLLECTED DATE/TIME:03/10/19 3:03 PM Blood Culture, Second Order SPECIMEN DESCRIPTION : BLOOD L AC SPECIAL REQUESTS : NONE CULTURE : NO GROWTH AFTER 48 HOURS REPORT STATUS : PRELIMINARY REPORT TEST:Blood Culture STATUS:Unauthenticated BODY SITE: SOURCE:Blood COLLECTED DATE/TIME:03/10/19 2:50 PM Blood Culture SPECIMEN DESCRIPTION : BLOOD RAC SPECIAL REQUESTS : NONE CULTURE : NO GROWTH AFTER 48 HOURS REPORT STATUS : PRELIMINARY REPORT Radiology Reports * Exam Date Time Procedure Performing Provider Status 03/10/19 2:35 PM Chest 2 Views Frontal and Lat Isac , Liliam; Auth (Verified) Notes: (Chest 2 Views Frontal and Lat) Reason For Exam: Shortness of Breath, Fever;Other: RESULT: Chest 2 Views Frontal and Lat Chest 2 Views Frontal and Lat INDICATION / CLINICAL QUESTION: Wheezing, flulike symptoms and hypoxia COMPARISON: 12/05/2017 FINDINGS: LINES AND TUBES: None. LUNGS AND PLEURA: Patchy consolidation of the right middle lobe. The remainder the lungs are clear. No pleural effusion. No pneumothorax. HEART, MEDIASTINUM AND ANSHU: Normal. BONES AND SOFT TISSUES: Normal. IMPRESSION: Right middle lobe opacity consistent with pneumonia. WSN: [id number] Dictated By: Teofilo George MD Dictated Date/Time: 03/10/19 2:40 pm Reviewed By: Teofilo George MD Signed By: Teofilo George MD Signed Date/Time: 03/10/19 2:40 pm Transcribed By: ALMAZ Transcribed Date/Time: 03/10/19 2:37 pm Vital Signs Most recent to oldest [Reference Range]: 1 2 3 Height 178 cm (03/12/19 7:44 AM) 178 cm (03/12/19 3:58 AM) 178 cm (03/12/19 12:05 AM) Weight 117 kg (03/10/19 8:14 PM) 122 kg (03/10/19 7:48 PM) Oxygen Saturation [94-100 %] 94 % (03/12/19 7:44 AM) 96 % (03/12/19 3:58 AM) 96 % (03/12/19 12:05 AM) Pulse Rate [55-90 bpm] 84 bpm (03/12/19 7:44 AM) 63 bpm (03/12/19 3:58 AM) 52 bpm *L* (03/12/19 12:05 AM) Body Mass Index [18.5-24.99] 36.93 *>HHI* (03/10/19 8:14 PM) Blood Pressure [90-138/55-84 mm Hg] 116/78mm Hg (03/12/19 7:44 AM) 112/72mm Hg (03/12/19 3:58 AM) 132/75mm Hg (03/12/19 12:05 AM) Respiratory Rate [16-30 br/min] 17 br/min (03/12/19 9:54 AM) 17 br/min (03/12/19 9:13 AM) 22 br/min (03/12/19 7:44 AM) Temperature [96.8-100.4 DegF] 98.6 DegF (03/12/19 7:44 AM) 98.1 DegF (03/12/19 3:58 AM) 98.6 DegF (03/12/19 12:05 AM) Liters per Minute 2 L/min (03/12/19 7:44 AM) 2 L/min (03/11/19 11:48 AM) 2 L/min (03/11/19 7:53 AM) Mode of Delivery (Oxygen) Nasal cannula (03/12/19 7:44 AM) Room air (03/12/19 3:58 AM) Room air (03/12/19 12:05 AM) Blood pressure sites Arm, left (03/12/19 7:44 AM) Arm, right (03/12/19 3:58 AM) Arm, right (03/12/19 12:05 AM) Temperature Route Oral (03/12/19 7:44 AM) Oral (03/12/19 3:58 AM) Oral (03/12/19 12:05 AM) Dry Weight 117 kg (03/10/19 8:14 PM) Weight Obtained Via Bed scale (03/10/19 7:48 PM) Social History Social History Type Response Smoking Status 5-9 cigarettes (betw een 1/4 to 1/2 pack)/day in last 30 days entered on: 01/19/18 Sex
--- OUTSIDE RECORDS SUMMARY | 2023-10-28 06:35 | XMS_ITS | Continuity of Care Document ---
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 Manager Of Housekeeping Name Role Phone William MOREIRA, Sudeep Espinosa Primary Care Physi [facility] [place] [facility] [place] 06/21/19 - 06/28/19 [facility] [address] [place] [id number]- [facility] Attending Physician: Javy Butcher MD Admitting Physician: Javy Butcher MD Referring Physician: Not on Staff, Referring MD Allergies, Adverse Reactions, Alerts Substance Reaction Severity Status NKA Active Immunizations Given and Recorded Vaccine Date Status Refusal Reason hepatitis B adult vaccine 10/26/18 Recorded Boostrix (Tdap) (oldterm) 02/03/17 Given pneumococcal 13-valent vaccine 02/03/17 Given influenza virus vaccine, inactivated 1, 2 02/03/17 Given 1Result Comment: [02/03/2017] [facility] # [id number] 2Admin Note: Afluria quadrivalent Medications Aerochamber See Instructions, # 1 each, Maintenance, use with inhaler, 12/05/17 18:12:17 EDT, Compound Start Date: 12/05/17 Status: Ordered Afluria Quadrivalent [id number] intramuscular suspension 0.5 mL, Intramuscular, Once, # 0.5 mL, 0 Refills, Soft Stop, 02/03/17 13:41:00 Start Date: 02/03/17 Status: Ordered albuterol CFC free 90 mcg/inh inhalation aerosol 2, puffs, Inhalation, Every 4 hours, PRN, # 25 Gm, Refills 0, Tot. Refills 0, Maintenance, 12/05/1817:12:19 EDT, Aerosol, Print Requisition, Compound Start Date: 9/29/18 Stop Date: 12/15/17 Status: Ordered Boostrix (Tdap) intramuscular suspension 0.5 mL, Intramuscular, Once, # 0.5 mL, 0 Refills, Soft Stop, 02/03/17 13:41:00, Suspension Start Date: 02/03/17 Status: Ordered Descovy 200 mg-25 mg oral tablet 1 tablet, By Mouth, Daily, # 30 tablet, 5 Refills, Maintenance, 04/01/19 15:12:00 EST, Tablet, [facility], 1 tablet By Mouth Daily,x30 days, 178, cm, 03/16/19 9:01:00 EST, Height, 117, kg, 03/10/19 20:14:00 EST, Dry Weight Start Date: 04/01/19 Stop Date: 09/28/19 Status: Ordered Methadone See Instructions, By Mouth [...] Daily, # 30 tablet, 5 Refills, Maintenance, 04/01/19 15:12:00 EST, Tablet, [facility], 178, cm, 03/16/19 9:01:00 EST, Height, 117, kg, 03/10/19 20:14:00 EST, Dry Weight Start Date: 04/01/19 Stop Date: 09/28/19 Status: Ordered Viagra 100 mg oral tablet 1 tablet = 100 mg, By Mouth, Daily, PRN as needed for erectile dysfunction, # 5 tablet, 1 Refills, Maintenance, 03/16/19 9:32:00 EST, Tablet, [facility], 178, cm, 03/16/19 9:01:00 EST, Height, 117, kg, 03/10/19 20:14:00 EST, Dry Weight Start Date: 03/16/19 Status: Ordered Social History Social History Type Response Smoking Status 5-9 cigarettes (betw een 1/4 to 1/2 pack)/day in last 30 days entered on: 01/19/18 Sex
--- OUTSIDE RECORDS SUMMARY | 2023-10-28 06:35 | XMS_ITS | Continuity of Care Document ---
Author Organization [facility] ter Address [address] [place] [phone]- Care Team Providers Care Janitorial Assistant Name Role Phone William MOREIRA, Sudeep Espinosa Primary Care Physi chrissy Encounter [facility] Date(s): 07/03/20 - 08/01/[address] [address] Discharge Disposition: A-Transfer SNF Attending Physician: Girish Sam MD Admitting Physician: Adolph Tomlinson MD Referring Physician: Adolph Tomlinson MD Allergies, Adverse Reactions, Alerts Substance Reaction Severity Status NKA Active Immunizations Given and Recorded Vaccine Date Status Refusal Reason hepatitis B adult vaccine 10/26/18 Recorded Boostrix (Tdap) (oldterm) 02/03/17 Given pneumococcal 13-valent vaccine 02/03/17 Given influenza virus vaccine, inactivated 1, 2 02/03/17 Given 1Result Comment: [02/03/2017] [facility] # 3332-317-02 2Admin Note: Afluria quadrivalent Medications acetaminophen 500 mg oral tablet 1 tablet = 500 mg, By Mouth, Every 4 hours, PRN as needed for fever, 0 Refills, Maintenance, 07/04/20 11:10:00 EDT, Tablet, ; Start Date: 07/04/20 Status: Ordered Aerochamber See Instructions, # 1 each, Maintenance, use with inhaler, 12/05/17 18:12:17 EDT, Compound Start Date: 12/05/17 Status: Ordered Descovy 200 mg-25 mg oral [...] 08/01/20 8:43:00 EDT, Route to Pharmacy Electronically, [facility], Partial fill upon patient request if the prescription is for a schedul... Start Date: 08/01/20 Status: Ordered gabapentin 300 mg oral capsule 300 mg, Capsule, By Mouth, 08/01/20 9:00:00 EDT Start Date: 08/01/20 Stop Date: 08/01/20 Status: Completed Insulin Lispro 4-12 units, Subcutaneous Injection, 3 [...] opioid drug. Start Date: 08/01/20 Status: Ordered Methadone Liquid 19 mg, Solution, By Mouth, 08/01/20 8:00:00 EDT Start Date: 08/01/20 Stop Date: 08/01/20 Status: Completed Multivit Therapeutic/Minerals Tablet 1 tablet, By Mouth, Daily, 0 Refills, Maintenance, 08/01/20 8:44:00 EDT, Tablet, Partial fill upon patient request if the prescription is for a schedule II opioid drug. Start Date: 08/01/20 Status: Ordered pantoprazole 40 mg oral delayed [...] 1 Refills, Maintenance, 03/16/19 9:32:00 EST, Tablet, [facility], 178, cm, 03/16/19 9:01:00 [...] Health Status Inform ant Peritonitis/ feculent(Confirmed) Active Procedures Procedure Date Related Diagnosis Body Site Status Negative pressure wound ther apy (eg, vacuum assisted drainage collection), utilizing durable medical equipment (DME), including topical application(s), wound assessment, and instruction(s) for ongoing care, per session; total wound(s) surface area greater 1 07/15/20 Completed Reopening of recent laparotomy 2 07/15/20 Completed Enterectomy; 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 07/11/20 Comp leted Enterolysis; > 1 hr 07/11/20 Compl eted Exploratory laparotomy, expl oratory celiotomy with or without biopsy(s) (separate procedure) 07/11/20 Completed Negative pressure wound ther apy (eg, vacuum assisted drainage collection),ABthera placement 07/11/20 Co mpleted Negative pressure wound ther apy (eg, vacuum assisted drainage collection), ABthera; temporary abdominal closure 2020 Completed Relook of recent laparotomy 2020 Completed 1abthera -125 2planned relook, washout, replace Abthera Results Orders for Microbiology Reports Name Date Blood Culture #2 07/03/20 Microbiology Reports TEST:Blood Culture, Second Order STATUS:Auth (Verified) BODY SITE: SOURCE:Blood COLLECTED DATE/TIME:07/04/20 12:30 AM Blood Culture, Second Order SPECIMEN DESCRIPTION : BLOOD R FINGER SPECIAL REQUESTS : NONE CULTURE : NO GROWTH 5 DAYS. REPORT STATUS : FINAL 07/09/2020 Radiology Reports (Most Recent Ten) * Exam Date Time Procedure Performing Provider Status 07/27/20 4:11 PM Chest Portable Magalie De Leon; Bautista h (Verified) Notes: (Chest Portable) Reason For Exam: placement of PICC, removal of IJ;Line Placement RESULT: Chest Portable Chest Portable Reason: Line Placement; placement of PICC, removal of IJ; Clinical Question(s): Line Placement COMPARISON: Similar study from earlier today. FINDINGS: LINES AND TUBES: Left upper extremity PICC terminates in the region of the lower SVC. Enteric tube terminates in the left upper quadrant, likely in the stomach. Right internal jugular vein catheter has been removed. LUNGS AND PLEURA: There is a right cardiophrenic angle opacity with air bronchograms increased when compared to 07/26/2020. Low lung volumes with bibasilar atelectasis is unchanged. No pleural effusion. No pneumothorax. HEART, MEDIASTINUM AND ANSHU: Unchanged. BONES AND SOFT TISSUES: No acute abnormality. IMPRESSION: 1. Good position of the support devices. 2. Right cardiophrenic angle opacity with air bronchograms could represent pneumonia or aspiration pneumonitis. WSN: [id number] Ordering Physician: Lilly Britton Dictated By: Bella Velasco MD Dictated Date/Time: 07/27/20 4:17 pm Reviewed By: Bella Velasco MD Signed By: Bella Velasco MD Signed Date/Time: 07/27/20 4:17 pm Transcribed By: ALMAZ Transcribed Date/Time: 07/27/20 4:15 pm * Exam Date Time Procedure Performing Provider Status 07/27/20 3:35 AM Chest Portable Praveena Bowman; Aut h (Verified) Notes: (Chest Portable) Reason For Exam: Shortness of Breath RESULT: Chest Portable Chest Portable semiupright at 3:14 AM Reason: Shortness of Breath; Clinical Question(s): Pneumothorax COMPARISON: Multiple priors, the most recent 07/26/2020 FINDINGS: LINES AND TUBES: Right IJ central venous catheter unchanged in position with tip in SVC. Enteric tube remains in good position. LUNGS AND PLEURA: There is stable opacification of the lower portion of each lung with an obscured hemidiaphragms andcostophrenic angles area upper lung sykes remain clear with normal vascularity. No pleural effusion. No pneumothorax. HEART, MEDIASTINUM AND ANSHU: Stable prominence of the cardiac silhouette. Normal upper mediastinal and hilar contour. BONES AND SOFT TISSUES: No acute abnormality. IMPRESSION: No change from the previous day. Stable opacification of the mid and lower portion of each hemithorax consistent with some combination of pleural fluid, atelectasis, and possible infiltrate. WSN: [id number] Ordering Physician: Isra Husain Dictated By: Chris Cuevas MD Dictated Date/Time: 07/27/20 9:09 am Reviewed By: Chris Cuevas MD Signed By: Chris Cuevas MD Signed Date/Time: 07/27/20 9:09 am Transcribed By: ALMAZ Transcribed Date/Time: 07/27/20 9:07 am * Exam Date Time Procedure Performing Provider Status 07/26/20 6:51 PM Chest Portable Areli Hernandez; Auth (Verified) Notes: (Chest Portable) Reason For Exam: NGT replacement;Tube Placement RESULT: Chest Portable Chest Portable Reason: Tube Placement; NGT replacement; Clinical Question(s): Tube Placement COMPARISON: X-ray 07/26/2020 at 6:02 AM FINDINGS: LINES AND TUBES: NG tube has been placed with the distal tip and side-port extending below left diaphragm. Right internal jugular CVL with tip in the lower SVC. LUNGS AND PLEURA: Hazy opacity overlying both lower lung sykes obscuring the hemidiaphragm consistent with small to moderate bilateral pleural effusions not significantly changed. There is also associated airspace opacity in both lower lobes which could be due to atelectasis or pneumonia which is also unchanged. No pneumothorax. HEART, MEDIASTINUM AND ANSHU: Mild prominence of the cardiac silhouette, unchanged. Normal upper mediastinal and hilar contour. BONES AND SOFT TISSUES: No acute abnormality. IMPRESSION: Stable bibasilar opacity and volume loss attributable to some combination of small to moderate bilateral pleural effusion with associated lower lobe atelectasis versus pneumonia. Well-positioned NG tube. WSN: [id number] Ordering Physician: Lilly Britton Dictated By: Jamie Torres MD Dictated Date/Time: 07/26/20 7:06 pm Reviewed By: Jamie Torres MD Signed By: Jamie Torres MD Signed Date/Time: 07/26/20 7:06 pm Transcribed By: ALMAZ Transcribed Date/Time: 07/26/20 7:04 pm * Exam Date Time Procedure Performing Provider Status 07/26/20 6:22 AM Chest Portable Alberto Man; Auth ( Verified) Notes: (Chest Portable) Reason For Exam: Tube Placement RESULT: Chest Portable Chest Portable AP upright at 6:02 AM REASON: Tube Placement; Clinical Question(s): Tube Placement; Special Instructions: Please make sure NG tube tip is showing. Thanks / Tube Placement COMPARISON: 07/17/2020 FINDINGS: LINES AND TUBES: Enteric tube tip projects in the stomach. Right internal jugular central venous catheter tip projects in the SVC. LUNGS AND PLEURA: Low lung volumes. Small bilateral pleural effusions, similar to slightly decreased from prior. Mild hazy opacity throughout both lungs, worse at the bases. No pneumothorax. HEART, MEDIASTINUM AND ANSHU: Unchanged. BONES AND SOFT TISSUES: No acute osseous abnormality. Mildly prominent gas-filled loops of bowel in the visualized upper abdomen. IMPRESSION: 1. Enteric tube tip projects in the stomach. 2. Small residual pleural effusions and hazy opacity in the lungs, worse at the bases, likely atelectasis. WSN: [id number] Ordering Physician: Steffany Chao Dictated By: Jamie Moran MD Dictated Date/Time: 07/26/20 8:09 am Reviewed By: Jamie Moran MD Signed By: Jamie Moran MD Signed Date/Time: 07/26/20 8:09 am Transcribed By: ALMAZ Transcribed Date/Time: 07/26/20 8:07 am * Exam Date Time Procedure Performing Provider Status 07/23/20 6:41 AM Abdomen AP Tony Michelle; Auth (V erified) Notes: (Abdomen AP) Reason For Exam: Distention RESULT: XR Abdomen AP XR Abdomen AP INDICATION/CLINICAL QUESTION: Distention; Clinical Question(s): NG tube location, and eval bowel dilation. COMPARISON: Multiple priors, most recent 07/19/2020. FINDINGS: Unchanged position of the enteric tube, terminating in the gastric pylorus or proximal duodenum. Slightly gaseously distended colonic distention. There is residual oral contrast within the colon and rectum. No evidence of obstruction. No evidence of pneumoperitoneum. No organomegaly, masses or calcifications. No acute bone findings. IMPRESSION: Endotracheal tube tip projecting over the gastric pylorus or proximal duodenum. Probable evolving ileus. I have personally reviewed the images and I agree with this report. WSN: [id number] Ordering Physician: Steffany Chao Dictated By: Elsie Chau DO Dictated Date/Time: 07/23/20 9:05 am Reviewed By: Thierno Oglesby MD Signed By: Thierno Oglesby MD Signed Date/Time: 07/23/20 9:10 am Transcribed By: ALMAZ Transcribed Date/Time: 07/23/20 8:28 am * Exam Date Time Procedure Performing Provider Status 07/19/20 12:09 PM Abdomen AP Romero, Elnin; Auth (Pramod ified) Notes: (Abdomen AP) Reason For Exam: Tube placement;Other: RESULT: XR Abdomen AP XR Abdomen AP INDICATION/CLINICAL QUESTION: Reason: Other:; Tube placement. COMPARISON: 07/09/2020 FINDINGS: Enteric tube tip projects in the proximal duodenum. Second catheter projecting over the right upper quadrant. Oral contrast within the colon Significant decrease in small bowel distention. Cholelithiasis IMPRESSION: Significant decrease in small bowel distention. Oral contrast within the colon. Enteric tube as above. Second catheter projecting over the right upper quadrant of the abdomen. Correlate clinically. Cholelithiasis A [place] message has been communicated via the opvizor system on 07/19/2020 1:14 PM, Message ID [id number]. WSN: [id number] Ordering Physician: June Dictated By: Chris Etienne MD Dictated Date/Time: 07/19/20 1:14 pm Reviewed By: Chris Etienne MD Signed By: Chris Etienne MD Signed Date/Time: 07/19/20 1:14 pm Transcribed By: ALMAZ Transcribed Date/Time: 07/19/20 1:09 pm * Exam Date Time Procedure Performing Provider Status 07/17/20 4:45 PM Chest Portable Jamal Nazario; Auth (Verified) Notes: (Chest Portable) Reason For Exam: Tube Placement RESULT: Chest Portable Chest Portable, AP semiupright, 4:12 PM Reason: Tube Placement COMPARISON: 5:25 AM, same day FINDINGS: LINES AND TUBES: Endotracheal tube tip 3.5 cm above the alisha. Enteric tube tip below diaphragm off inferior margin of image, with the inferior margin of the image at or slightly below the expected position of the GE junction. Small right IJ centimeters catheter tip SVC. LUNGS AND PLEURA: Small bilateral pleural effusions right more than left have become better defined, possibly due to variable positioning. Mildly improved aeration in the lower right lung with graded opacity probably due to layering pleural effusion and compressive atelectasis. Persistent retrocardiac consolidation,now with some visible air bronchograms, probably due to atelectasis but pneumonia not excluded. Moderately decreasing left perihilar edema pattern. The central vessels are enlarged but appear less congested than on the prior study. No pneumothorax. HEART, MEDIASTINUM AND ANSHU: Heart is normal in size. Normal upper mediastinal and hilar contour. BONES AND SOFT TISSUES: No acute abnormality. IMPRESSION: New endotracheal tube appears to be in good position. Improving CHF and inflation. Persistent retrocardiac consolidation now with central air bronchograms, probably due to atelectasis but cannot exclude pneumonia. WSN: [id number] Ordering Physician: Shelby Hoff Dictated By: Jamie Martin MD Dictated Date/Time: 07/17/20 4:57 pm Reviewed By: Jamie Martin MD Signed By: Jamie Martin MD Signed Date/Time: 07/17/20 4:57 pm Transcribed By: ALMAZ Transcribed Date/Time: 07/17/20 4:56 pm * Exam Date Time Procedure Performing Provider Status 07/17/20 6:04 AM Chest Portable Praveena Bowman; Aut h (Verified) Notes: (Chest Portable) Reason For Exam: Follow-Up Pleural Effusion RESULT: Chest Portable Chest Portable Reason: Follow-Up Pleural Effusion COMPARISON: 07/16/2020 FINDINGS: LINES AND TUBES: Interval extubation with an enteric tube and right IJ central venous catheter unchanged. LUNGS AND PLEURA: Increasing interstitial and airspace opacities and trace bilateral effusions. No pneumothorax. HEART, MEDIASTINUM AND ANSHU: Heart remains enlarged. Prominent central pulmonary vascularity. BONES AND SOFT TISSUES: No acute abnormality. IMPRESSION: Worsening pulmonary vascular congestion and developing edema status post extubation. A [place] message has been communicated via the opvizor system on 07/17/2020 9:26 AM, Message ID [id number]. WSN: [id number] Ordering Physician: Magalis June Dictated By: Thierno Oglesby MD Dictated Date/Time: 07/17/20 9:26 am Reviewed By: Thierno Oglesby MD Signed By: Thierno Oglesby MD Signed Date/Time: 07/17/20 9:26 am Transcribed By: ALMAZ Transcribed Date/Time: 07/17/20 9:24 am * Exam Date Time Procedure Performing Provider Status 07/16/20 6:36 AM Chest Portable Matilde Man ( Verified) Notes: (Chest Portable) Reason For Exam: Tube Placement RESULT: Chest Portable Examination: Portable chest performed on 07/16/2020 at 5:50 AM. History: Tube placement. Findings: A frontal view of the chest is compared to a prior study dated 07/15/2020. Support apparatus is in expected location. The cardiac silhouette is within normal limits for size. Bibasilar airspace opacities are similar to the prior examination. The right pleural effusion has increased slightly since the prior study andremains small in degree. The osseous structures are intact. IMPRESSION: Support apparatus is in expected location. Slight increase in the right pleural effusion. Bibasilar airspace disease is otherwise unchanged. WSN: [id number] Ordering Physician: Lori Hodges Dictated By: Sarah Guzman MD Dictated Date/Time: 07/16/20 8:20 am Reviewed By: Sarah Guzman MD Signed By: Sarah Guzman MD Signed Date/Time: 07/16/20 8:20 am Transcribed By: ALMAZ Transcribed Date/Time: 07/16/20 8:19 am * Exam Date Time Procedure Performing Provider Status 07/15/20 6:48 PM Chest Portable Joseph Hernandez ( Verified) Notes: (Chest Portable) Reason For Exam: Tube Placement RESULT: Chest Portable Chest Portable Reason: Tube Placement COMPARISON: 07/15/2020 at 5:38 AM FINDINGS: LINES AND TUBES: Endotracheal tube terminates 2.4 cm above the alisha. Right internal jugular vein catheter terminates in the mid SVC. Enteric tube tip is not visualized but it appears to be kinked in the stomach. LUNGS AND PLEURA: Slightly improved aeration in the right lower lung field with persistent opacities at both bases. Small bilateral pleural effusions are unchanged. No pneumothorax. HEART, MEDIASTINUM AND ANSHU: Unchanged. BONES AND SOFT TISSUES: No acute abnormality. IMPRESSION: 1. Slightly improved aeration in the right lower lung field. 2. Persistent small pleural effusions and bibasilar opacities. 3. Enteric tube appears to be kinked in the stomach. A [place] message has been communicated via the opvizor system on 07/15/2020 6:57 PM, Message ID [id number]. WSN: [id number] Ordering Physician: Paulino Salceod Dictated By: Bella Velasco MD Dictated Date/Time: 07/15/20 6:57 pm Reviewed By: Bella Velasco MD Signed By: Bella Velasco MD Signed Date/Time: 07/15/20 6:57 pm Transcribed By: ALMAZ Transcribed Date/Time: 07/15/20 6:54 pm Vital Signs Most recent to oldest [Reference Range]: 1 2 3 Height 177.8 cm (07/26/20 11:42 AM) 177.8 cm (07/26/20 8:05 AM) 177.8 cm (07/25/20 3:28 AM) Weight 123.4 kg (07/19/20 6:00 AM) 120.4 kg (07/18/20 10:35 AM) 119.4 kg (07/13/20 6:28 AM) Oxygen Saturation [94-100 %] 91 % *L* (08/01/20 6:00 AM) 97 % (08/01/20 2:00 AM) 97 % (07/31/20 10:00 PM) Pulse Rate [55-90 bpm] 91 bpm *H* (07/31/20 6:00 PM) 89 bpm (07/31/20 3:00 PM) 79 bpm (07/31/20 11:00 AM) Body Mass Index [18.5-24.99] 27.32 *H* (07/11/20 6:00 PM) 27.32 *H* (07/10/20 10:44 AM) Blood Pressure [90-138/55-84 mm Hg] 113/61mm Hg (08/01/20 6:00 AM) 120/77mm Hg (08/01/20 2:00 AM) 115/70mm Hg (07/31/20 10:00 PM) Respiratory Rate [16-30 br/min] 13 br/min *L* (08/01/20 9:56 AM) 16 br/min (08/01/20 8:32 AM) 21 br/min (08/01/20 6:00 AM) Temperature [96.8-100.4 DegF] 98.9 DegF (08/01/20 6:00 AM) 99.0 DegF (08/01/20 2:00 AM) 98.6 DegF (07/31/20 10:00 PM) Liters per Minute 2 L/min (07/31/20 11:00 AM) 2 L/min (07/31/20 6:00 AM) 2 L/min (07/31/20 2:00 AM) Mode of Delivery (Oxygen) Room air (08/01/20 6:00 AM) Room air (08/01/20 2:00 AM) Room air (07/31/20 10:00 PM) Blood pressure sites Arm, right (08/01/20 2:00 AM) Arm, right (07/31/20 10:00 PM) Arm, right (07/31/20 6:00 PM) Temperature Route Oral (08/01/20 6:00 AM) Oral (08/01/20 2:00 AM) Oral (07/31/20 10:00 PM) Dry Weight 105 kg (07/03/20 5:03 PM) 105 kg (07/03/20 5:03 PM) Weight Obtained Via Bed scale (07/18/20 10:35 AM) Bed scale (07/12/20 9:49 AM) Bed scale (07/12/20 9:48 AM) Social History Social History Type Response Smoking Status 5-9 cigarettes (betw een 1/4 to 1/2 pack)/day in last 30 days entered on: 01/19/18 Sex
--- OUTSIDE RECORDS SUMMARY | 2023-10-28 06:35 | XMS_ITS | Continuity of Care Document ---
Author Organization [facility] Address [address] [place] [address] [address] [place] [address]- Care Team Providers Care Pedorthist Name Role Phone William MOREIRA, Sudeep Espinosa Primary Care Physi chrissy Encounter [facility] Date(s): 08/14/20 - 08/21/[address] [place], [place] [address] Attending Physician: Adolph Tomlinson MD Allergies, Adverse Reactions, Alerts Substance Reaction Severity Status NKA Active Immunizations Given and Recorded Vaccine Date Status Refusal Reason hepatitis B adult vaccine 10/26/18 Recorded Boostrix (Tdap) (oldterm) 02/03/17 Given pneumococcal 13-valent vaccine 02/03/17 Given influenza virus vaccine, inactivated 1, 2 02/03/17 Given 1Result Comment: [02/03/2017] [facility] # [id number] 2Admin Note: Afluria quadrivalent [...] 08/01/20 8:43:00 EDT, Route to Pharmacy Electronically, [facility], Partial fill upon patient [...] 1 Refills, Maintenance, 03/16/19 9:32:00 EST, Tablet, [facility], 178, cm, 03/16/19 9:01:00 [...] Health Status Inform ant Peritonitis/ feculent(Confirmed) Active Vital Signs Most recent to oldest [Reference Range]: 1 Height 177.8 cm (08/14/20 10:51 AM) Pulse Rate [55-90 bpm] 84 bpm (08/14/20 10:51 AM) Blood Pressure [90-138/55-84 mm Hg] 124/ 73mm Hg (08/14/20 10:51 AM) Respiratory Rate [16-30 br/min] 16 br/mi n (08/14/20 10:51 AM) Temperature [96.8-100.4 DegF] 98.6 DegF (08/14/20 10:51 AM) Blood pressure sites Arm, left (08/14/20 10:51 AM) Temperature Route Temporal (08/14/20 10:51 AM) Social History Social History Type Response Smoking Status 5-9 cigarettes (betw een 1/4 to 1/2 pack)/day in last 30 days entered on: 01/19/18 Sex
--- OUTSIDE RECORDS SUMMARY | 2023-10-28 06:35 | XMS_ITS | Continuity of Care Document ---
Author Organization [facility] Address [address] [place] [address]- Care Team Providers Care Composite Bond Technician Name Role Phone Hiram Romero MD Primary Care Physician Encounter [facility] Date(s): 09/03/23 - 10/03/23 [facility] [address] [place] [address] Attending Physician: Evan Andrea Admitting Physician: AdmEvan weston Referring Physician: Admtr, Evan Allergies, Adverse Reactions, Alerts No Known Allergies Immunizations Given and Recorded Vaccine Date Status Refusal Reason influenza virus vaccine, inactivated 02/19/23 Give n influenza virus vaccine, inactivated 1, 2 02/03/17 Given hepatitis B adult vaccine 10/26/18 Recorded Boostrix (Tdap) (oldterm) 02/03/17 Given pneumococcal 13-valent vaccine 02/03/17 Given 1Result Comment: [02/03/2017] [facility] # [id number] 2Admin Note: Afluria quadrivalent [...] 5 Refills, Maintenance, 07/09/23 10:10:00 EDT, Tablet, [facility], Partial fill upon [...] 08/01/20 8:43:00 EDT, Route to Pharmacy Electronically, [facility], Partial fill upon [...] 1 Refills, Maintenance, 03/16/19 9:32:00 EST, Tablet, [facility], 178, cm, 03/16/19 [...] Team Personnel Name: Cayetano Campos RN Position: [facility] RN Member Role: Primary Care Nurse Name: Hiram Romero MD Position: Reference Physician Member Role: PCP Address: Address: [address] [place] [address]- Name: Jarek Meyer RN Position: [facility] ED RN W/OE and Tasks Member Role: Primary Care Nurse Name: Monica Angeles RN Position: [facility] ED RN W/OE and Tasks Member Role: Primary Care Nurse Name: Conchita Pathak RN Position: [facility] RN Supv Member Role: Primary Care Nurse Name: Florencio Abdalla RN Position: [facility] SN RN Member Role: Primary Care Nurse Name: Nichelle Mckenzie RN Position: [facility] AMB Nurse Member Role: Primary Care Nurse Name: Lela Helm RN Position: [facility] RN Member Role: Primary Care Nurse Name: Abbie Natarajan RN Position: [facility] RN Member Role: Primary Care Nurse Name: Tram Snider RN Position: [facility] RN Member Role: Primary Care Nurse Name: Anthony Sam RN Position: [facility] RN Supv Member Role: Primary Care Nurse Name: Jinny Castellanos RN Position: [facility] RN Member Role: Primary Care Nurse Name: Franchesca Hurley RN Position: [facility] RN Member Role: Primary Care Nurse Name: Denise Wilkins RN Position: [facility] RN Member Role: Primary Care Nurse Name: Rebeca Mays RN Position: [facility] RN Member Role: Primary Care Nurse Name: Javy Butcher MD Position: [facility] Physician - Infectious Disease Member Role: Lifetime Consulting Physician Name: Janneth Dawn RN Position: [facility] RN Member Role: Primary Care Nurse Care Team Related Persons Name: AMARILIS WINSLOW Address: home [address] [place] [id number] Name: LEL[place] [address]
--- OUTSIDE RECORDS SUMMARY | 2023-10-28 06:35 | XMS_ITS | Continuity of Care Document ---
Author Organization [facility] Address [address] [place] [address]- Care Team Providers Care Floor Coverings Salesperson Name Role Phone Not on Staff, PCP Primary Care Physician Unavail able Encounter [facility] Date(s): 03/10/19 - 03/20/19 [facility] [address] [place] [address]- [facility] Attending Physician: Evan Andrea Admitting Physician: AdmEvan weston Referring Physician: Admtr, Ar8 Allergies, Adverse Reactions, Alerts Substance Reaction Severity Status NKA Active Immunizations Given and Recorded Vaccine Date Status Refusal Reason hepatitis B adult vaccine 10/26/18 Recorded Boostrix (Tdap) (oldterm) 02/03/17 Given pneumococcal 13-valent vaccine 02/03/17 Given influenza virus vaccine, inactivated 1, 2 02/03/17 Given 1Result Comment: [02/03/2017] [facility] # [id number] 2Admin Note: Afluria quadrivalent Medications Aerochamber See Instructions, # 1 each, Maintenance, use with inhaler, 12/05/17 18:12:17 EDT, Compound Start Date: 12/05/17 Status: Ordered Afluria Quadrivalent [id number] intramuscular suspension 0.5 mL, Intramuscular, Once, # [...] 1 Refills, Maintenance, 03/16/19 9:32:00 EST, Tablet, [facility], 178, cm, 03/16/19 9:01:00 EST, Height, 117, kg, 03/10/19 20:14:00 EST, Dry Weight Start Date: 03/16/19 Status: Ordered Social History Social History Type Response Smoking Status 5-9 cigarettes (betw een 1/4 to 1/2 pack)/day in last 30 days entered on: 01/19/18 Sex
--- OUTSIDE RECORDS SUMMARY | 2023-10-28 06:35 | XMS_ITS | Continuity of Care Document ---
Author Organization [facility] Address [address] [place] [address]- Care Team Providers Care Rail Signal Designer Name Role Phone Hiram Romero MD Primary Care Physician Encounter [facility] Date(s): 05/21/23 - 06/20/23 [facility] [address] [place] [id number] Attending Physician: Evan Andrea Admitting Physician: Evan Andrea Referring Physician: AdmtrEvan Allergies, Adverse Reactions, Alerts No Known Allergies Immunizations Given and Recorded Vaccine Date Status Refusal Reason influenza virus vaccine, inactivated 02/19/23 Give n influenza virus vaccine, inactivated 1, 2 02/03/17 Given hepatitis B adult vaccine 10/26/18 Recorded Boostrix (Tdap) (oldterm) 02/03/17 Given pneumococcal 13-valent vaccine 02/03/17 Given 1Result Comment: [02/03/2017] [facility] [...] Daily, # 30 tablet, 5 Refills, Maintenance, 07/03/22 11:43:00 EDT, Tablet, [facility], Partial fill upon patient request if the prescription is for a schedule II opioid drug., 1 tablet By Mouth Daily,x30 days, 177.... Start Date: 07/03/22 Stop Date: 12/30/22 Status: Ordered Combivent Respimat 20 mcg-100 mcg/inh [...] 08/01/20 8:43:00 EDT, Route to Pharmacy Electronically, [facility], Partial fill upon patient [...] Maintenance, 03/16/19 9:32:00 EST, Tablet, [facility], 178, cm, 03/16/19 9:01:00 [...] Team Personnel Name: Cayetano Campos RN Position: [facility] RN Member Role: Primary Care Nurse Name: Hiram Romero MD Position: Reference Physician Member Role: PCP Address: Address: [address] [place] [address]- Name: Jarek Meyer RN Position: [facility] ED RN W/OE and Tasks Member Role: Primary Care Nurse Name: Monica Angeles RN Position: [facility] ED RN W/OE and Tasks Member Role: Primary Care Nurse Name: Conchita Pathak RN Position: [facility] RN Supv Member Role: Primary Care Nurse Name: Lukasz Abdalla RN Position: [facility] SN RN Member Role: Primary Care Nurse Name: Nichelle Mckenzie RN Position: [facility] AMB Nurse Member Role: Primary Care Nurse Name: Lela Helm RN Position: [facility] RN Member Role: Primary Care Nurse Name: Abbie Natarajan RN Position: [facility] RN Member Role: Primary Care Nurse Name: Tram Snider Position: [facility] RN Member Role: Primary Care Nurse Name: Anthony Sam RN Position: [facility] RN Supv Member Role: Primary Care Nurse Name: Jinny Castellanos RN Position: [facility] RN Member Role: Primary Care Nurse Name: Franchesca Hurley RN Position: [facility] RN Member Role: Primary Care Nurse Name: Denise Wilkins RN Position: [facility] RN Member Role: Primary Care Nurse Name: Rebeca Mays RN Position: [facility] RN Member Role: Primary Care Nurse Name: Javy Butcher MD Position: [facility] Infectious Disease MD Member Role: Lifetime Consulting Physician Name: Janneth Dawn RN Position: [facility] RN Member Role: Primary Care Nurse Care Team Related Persons Name: AMARILIS WINSLOW Address: home [address] [place] [id number] Name: LELA KENNEDY Address: [place] [address]
--- OUTSIDE RECORDS SUMMARY | 2023-10-28 06:35 | XMS_ITS | Continuity of Care Document ---
Author Organization [facility] Address [address] [place] [address]- Care Team Providers Care Field Recruiter Name Role Phone Hiram Romero MD Primary Care Physician [phone] Encounter [facility] Date(s): 05/29/22 - 06/28/22 [facility] [address] [place] [id number] Attending Physician: Evan Andrea Admitting Physician: Evan Andrea Referring Physician: AdmtrEvan Allergies, Adverse Reactions, Alerts No Known Allergies Immunizations Given and Recorded Vaccine Date Status Refusal Reason hepatitis B adult vaccine 10/26/18 Recorded Boostrix (Tdap) (oldterm) 02/03/17 Given pneumococcal 13-valent vaccine 02/03/17 Given influenza virus vaccine, inactivated 1, 2 02/03/17 Given 1Result Comment: [02/03/2017] [facility] # [id number] 2Admin Note: Afluria quadrivalent [...] 3 Refills, Maintenance, 02/11/22 14:06:00 EST, Tablet, [facility], Partial fill upon patient request [...] 08/01/20 8:43:00 EDT, Route to Pharmacy Electronically, [facility], Partial fill upon patient request [...] 1 Refills, Maintenance, 03/16/19 9:32:00 EST, Tablet, [facility], 178, cm, 03/16/19 9:01:00 EST, [...] Team Personnel Name: Cayetano Campos RN Position: [facility] RN Member Role: Primary Care Nurse Name: Hiram Romero MD Position: Reference Physician Member Role: PCP Address: Address: [address] [place] [address] Name: Jarek Meyer RN Position: [facility] ED RN W/OE and Tasks Member Role: Primary Care Nurse Name: Monica Angeles RN Position: S RN Member Role: Primary Care Nurse Name: Conchita Pathak RN Position: [facility] RN Supv Member Role: Primary Care Nurse Name: Torres Han RN Position: S RN Member Role: Primary Care Nurse Name: Lukasz Abdalla RN Position: S RN Member Role: Primary Care Nurse Name: Nichelel Mckenzie RN Position: S RN Member Role: Primary Care Nurse Name: Lela Helm RN Position: S RN Member Role: Primary Care Nurse Name: Abbie Natarajan RN Position: S RN Member Role: Primary Care Nurse Name: Tram Snider Position: S RN Member Role: Primary Care Nurse Name: Anthony Sam RN Position: [facility] RN Supv Member Role: Primary Care Nurse Name: Jinny Castellanos RN Position: [facility] RN Member Role: Primary Care Nurse Name: Franchesca Hurley RN Position: [facility] RN Member Role: Primary Care Nurse Name: Denise Wilkins RN Position: [facility] RN Member Role: Primary Care Nurse Name: Rebeca Mays RN Position: [facility] RN Member Role: Primary Care Nurse Name: Hilaria Garduno RN Position: [facility] RN Member Role: Primary Care Nurse Name: Javy Butcher MD Position: [facility] Infectious Disease MD Member Role: Lifetime Consulting Physician Name: Janneth Dawn RN Position: [facility] RN Member Role: Primary Care Nurse Care Team Related Persons Name: GOLDY AMARILIS Address: home [address] [place] [address] Name: LELA KENNEDY Address: [place] [address]
--- OUTSIDE RECORDS SUMMARY | 2023-10-28 06:35 | XMS_ITS | Continuity of Care Document ---
Author Organization [facility] Address [address] [place] [address] [address] [place] [address]- Care Team Providers Care Principal Statistical Scientist Name Role Phone William METAL GRADER, Sudeep Espinosa Primary Care Physi chrissy [facility]counter [facility] Date(s): 08/08/20 - 08/15/[address] [place], [place] [address] Attending Physician: Jas Robles MD Allergies, Adverse Reactions, Alerts Substance Reaction [...] 08/01/20 8:43:00 EDT, Route to Pharmacy Electronically, [facility], Partial fill upon patient [...] 1 Refills, Maintenance, 03/16/19 9:32:00 EST, Tablet, [facility], 178, cm, 03/16/19 9:01:00 [...] oldest [Reference Range]: 1 Height 177.8 cm (08/08/20 1:38 PM) Pulse Rate [55-90 bpm] 75 bpm (08/08/20 1:38 PM) Blood Pressure [90-138/55-84 mm Hg] 122/ 64mm Hg (08/08/20 1:38 PM) Temperature [96.8-100.4 DegF] 98.7 DegF (08/08/20 1:38 PM) Blood pressure sites Arm, right (08/08/20 1:38 PM) Temperature Route Temporal (08/08/20 1:38 PM) Social History Social History Type Response Smoking Status 5-9 cigarettes (betw een 1/4 to 1/2 pack)/day in last 30 days entered on: 01/19/18 Sex
--- OUTSIDE RECORDS SUMMARY | 2023-10-28 06:35 | XMS_ITS | Continuity of Care Document ---
Author Organization [facility] Address [address] [place] [address]- Care Team Providers Care It Business Process Architect Name Role Phone William MOREIAR, Sudeep Espinosa Primary Care Physi [facility] Encounter [facility] Date(s): 05/14/21 - 08/01/21 [facility] [address] [place] [id number] Attending Physician: Tre Barksdale MD Admitting Physician: Tre Barksdale MD Referring Physician: Sudeep Thomas NP Allergies, Adverse Reactions, Alerts No Known Allergies Immunizations Given and Recorded Vaccine Date Status Refusal Reason hepatitis B adult vaccine 10/26/18 Recorded Boostrix (Tdap) (oldterm) 02/03/17 Given pneumococcal 13-valent vaccine 02/03/17 Given influenza virus vaccine, inactivated 1, 2 02/03/17 Given 1Result Comment: [02/03/2017] [facility] # [id number] 2Admin Note: Afluria quadrivalent Medications [...] 1 Refills, Maintenance, 07/15/21 9:58:00 EDT, Tablet, [facility], Partial fill upon [...] 08/01/20 8:43:00 EDT, Route to Pharmacy Electronically, [facility], Partial fill upon [...] 1 Refills, Maintenance, 07/15/21 9:58:00 EDT, Tablet, [facility], Partial fill upon patient request if the prescription is for a schedule II opioid d... Start Date: 07/15/21 Stop Date: 09/13/21 Status: Ordered Viagra 100 mg oral tablet 1 tablet = 100 mg, By Mouth, Daily, PRN as needed for erectile dysfunction, # 5 tablet, 1 Refills, Maintenance, 03/16/19 9:32:00 EST, Tablet, [facility], 178, cm, 03/16/19 [...]
--- OUTSIDE RECORDS SUMMARY | 2023-10-28 06:35 | XMS_ITS | Continuity of Care Document ---
Author Organization [facility] Address [address] [place] [address]- Care Team Providers Care Home Demonstrator Name Role Phone William MOREIRA, Sudeep Espinosa Primary Care Physi [facility]s): 06/21/19 - 07/01/19 [facility] [address] [place] [address] Attending Physician: Evan Andrea Admitting Physician: AdmtrEvan Referring Physician: Admtr, Ar8 Allergies, Adverse Reactions, Alerts Substance Reaction Severity Status NKA Active Immunizations Given and Recorded Vaccine Date Status Refusal Reason hepatitis B adult vaccine 10/26/18 Recorded Boostrix (Tdap) (oldterm) 02/03/17 Given pneumococcal 13-valent vaccine 02/03/17 Given influenza virus vaccine, inactivated 1, 2 02/03/17 Given 1Result Comment: [02/03/2017] [facility] # [id number] 2Admin Note: Afluria quadrivalent Medications Aerochamber See Instructions, # 1 each, Maintenance, use with inhaler, 12/05/17 18:12:17 EDT, Compound Start Date: 12/05/17 Status: Ordered Afluria Quadrivalent [id number] intramuscular suspension 0.5 mL, Intramuscular, Once, # [...] 5 Refills, Maintenance, 04/01/19 15:12:00 EST, Tablet, [facility], 1 tablet By [...] 5 Refills, Maintenance, 04/01/19 15:12:00 EST, Tablet, [facility], 178, cm, 03/16/19 9:01:00 EST, Height, 117, kg, 03/10/19 20:14:00 EST, Dry Weight Start Date: 04/01/19 Stop Date: 09/28/19 Status: Ordered Viagra 100 mg oral tablet 1 tablet = 100 mg, By Mouth, Daily, PRN as needed for erectile dysfunction, # 5 tablet, 1 Refills, Maintenance, 03/16/19 9:32:00 EST, Tablet, [facility], 178, cm, 03/16/19 9:01:00 EST, Height, 117, kg, 03/10/19 20:14:00 EST, Dry Weight Start Date: 03/16/19 Status: Ordered Social History Social History Type Response Smoking Status 5-9 cigarettes (betw een 1/4 to 1/2 pack)/day in last 30 days entered on: 01/19/18 Sex
== END 2023-10-23 19:15 | disposition home or self-care (01) ==
PROVIDERS: Emergency Provider Emergency Medicine
DX: F11.20 Opioid dependence, uncomplicated (principal); R45.1 Restlessness and agitation; Z53.29 Procedure and treatment not carried out because of patient's decision for other reasons
CPT/HCPCS: 99282

== ENCOUNTER → 2024-09-23 09:50 | Outpatient (BNV) | payer OTHER, SELFPAY | PROVIDERS: PCP Internal Medicine; Visit Provider Radiology Diagnostic Radiology | DX: R05.8 Other specified cough (principal) | CPT/HCPCS: 71045 ==

== ENCOUNTER 2024-09-23 10:27 | Emergency (ER) | payer OTHER, SELFPAY ==
--- NOTE | ~2024-09-23 | XR_ITS ---
EXAMINATION: XR CHEST CLINICAL INFORMATION: cough COMPARISON: 07/03/2020. TECHNIQUE: Frontal view of the chest was obtained. FINDINGS: The cardiac, hilar, and mediastinal contours are normal. Lungs demonstrate subtle right basilar opacity which could represent pneumonia. Left lung is clear. No pneumothorax or effusion. No focal osseous or soft tissue abnormality. XR/XR chest 1V IMPRESSION: 1. Patchy right basilar opacity suspect for pneumonia in the appropriate clinical setting. Electronically signed by: Cali Fitzgerald MD 09/23/2024 10:58 AM EDT
[2024-09-23 10:30] VITALS: BP 118/74; PULSE 57; RESP 16; TEMP 36.6; O2SAT 97; BMI 26.9
--- OUTSIDE RECORDS SUMMARY | 2024-09-23 11:28 | XMS_ITS | Clinical Summary ---
Author Organization [facility] Address [address] [place] [address] Care Team Providers Care Service Administrator Name Role Phone Sudeep Thomas NP Primary Care Provider [phone] Social History Tobacco Use Types Packs/Day Years Used Date Smoking Tobacco: Never Assessed Sex and Gender Information Value Date Recorded Sex Assigned at Not on file Legal Sex Male 6:26 PM EST Gender Identity Not on file Sexual Orientation Not on file Plan of Treatment Health Maintenance Due Date Last Done Comments Hepatitis C Virus Screening 1980 HIV Screening 1993 DTaP/Tdap/Td Vaccines (1 - Tdap) 06/07/1999 Hepatitis B Vaccines (1 of 3 - 19+ 3-dose series) 06/07/1999 COVID-19 Vaccine ( - 2023-2 5 season) 2023 Influenza Vaccine 10/07/2024 HPV Vaccines Aged Out No longer eligi ble based on patient's age to complete this topic Pneumococcal Vaccine: Pediat asif (0-5 Years) and At-Risk Patients (6 to 49 Years) Aged Out No longer eligible b ased on patient's age to complete this topic Insurance [facility] MEDICARE OUT OF NETWORK on file [facility] [employer] Care Teams Service Administrator Relationship Specialty Start Date End Date Sudeep Thomas NP [address] [place] [address] PCP - General 07/03/20
--- OUTSIDE RECORDS SUMMARY | 2024-09-23 11:28 | XMS_ITS | Clinical Summary ---
Author Organization [facility] Address [address] [id number] Phone Care Team Providers Care Wax Pattern Coater Name Role Phone Pcp, Unknown Primary Care Provider Unavailabl e Social History Tobacco Use Types Packs/Day Years Used Date Smoking Tobacco: Never Assessed Education Answer Date Recorded Are you interested in more education? Not on roel e 07/05/2022 Are you concerned about learning? Not on file 07/05/2022 No 07/05/2022 No 07/05/2022 Digital Access Answer Date Recorded No 08/05/2022 No 08/05/2022 Reliable internet access at home? Not on file 08/05/2022 Device with a working camera? Not on file Sex and Gender Information Value Date Recorded Sex Assigned at Not on file Legal Sex Male 9:09 AM EDT Gender Identity Not on file Sexual Orientation Not on file Plan of Treatment Not on file Medical Devices Not on file Insurance [facility] MEDICARE REPLACEMENT MICHAELA OLSEN [id number] [facility] MEDICARE REPLACEMENT [facility] ONE CARE MEDICARE REPLACEMENT Care Teams Wax Pattern Coater Relationship Specialty Start Date End Date Pcp, Unknown PCP - General 08/02/20 Additional Source Comments The information contained in this document represents components of the legal health record. It is not the complete legal health record.[facility]
--- NOTE | 2024-09-23 11:40 | ED.URI ---
HPI - URI/Sore Throat General Chief Complaint: Upper Respiratory Symptoms Stated Complaint: Cough up phlegm Time Seen by Provider: 09/23/24 10:40 Source: patient Mode of arrival: ambulatory Limitations: no limitations History of Present Illness ED Provider: rosie bhakta np HPI Narrative: Patient is a 44-year-old male past medical history of opioid use disorder, anxiety, depression, hypertension, hepatitis-C, hepatic steatosis, HIV reportedly compliant with ART, childhood asthma presenting for evaluation of a productive cough over the past 4 days. He endorses some chest discomfort with deep breathing and cough but no overt chest pain outside of episodes of coughing. Denies any recent unintentional weight loss. Denies fevers, chills, headache, dizziness, neck pain, neck stiffness, shortness of breath, difficulty breathing, sore throat, nausea, vomiting, abdominal pain, numbness or tingling of the extremities, genitourinary symptoms. Related Data Home Medications ?Medication ?Instructions ?Recorded ?Confirmed dolutegravir 50 mg tablet (Tivicay) 1 tab PO DAILY 07/02/20 09/28/20 emtricitabine 200 mg-tenofovir 1 tab PO DAILY 07/02/20 09/28/20 alafenamide fumarate 25 mg tablet (Descovy) Previous Rx's ?Medication ?Instructions ?Recorded lidocaine 4 % topical cream 1 appl topical TID PRN pain 30 08/09/20 days #50 grams blood-glucose meter (FreeStyle #1 ea 09/12/20 Lite Meter kit) hydrochlorothiazide 12.5 mg tablet 12.5 mg PO DAILY 30 days #30 tabs 09/12/20 diclofenac sodium 75 mg 75 mg PO BID PRN for pain #30 tabs 07/03/22 tablet,delayed release gabapentin 300 mg capsule 300 mg PO TID #90 caps 08/07/22 blood sugar diagnostic (FreeStyle #100 strips 11/21/22 Lite Strips) sertraline 100 mg tablet 100 mg PO DAILY #30 tabs 01/23/23 free style lancets #1 ea 06/24/23 Held on 06/24/23. Instructions: inactive lancets 28 gauge (FreeStyle #100 ea 06/24/23 Lancets) amoxicillin 875 mg-potassium 1 tab PO BID #10 tabs 09/23/24 clavulanate 125 mg tablet azithromycin 250 mg tablet See Rx Instructions PO .COMPLEX #6 07/18/25 tabs Allergies Allergy/AdvReac Type Severity Reaction Status Date / Time No Known Allergies Allergy Verified 09/23/24 10:33 Review of Systems Review of Systems: Yes all other systems are reviewed and are negative [facility] Past Medical History Attestation statement: The following information was validated with the patient. Source: old records reviewed Medical History Neuropathic pain of right thigh Abdominal pain Diarrhea Abdominal pain Anxiety and depression Obesity (BMI 30-39.9) Benign essential hypertension Obstructive sleep apnea Muscle twitching Encounter for Medicare annual wellness exam Fracture of multiple ribs of left side HIV positive Hypertriglyceridemia Hypertension Opioid dependence Osteoarthritis Morbid obesity Prediabetes Gynecomastia, male Hypogonadotropic hypogonadism in male Surgical History History of open reduction and internal fixation (ORIF) procedure History of arthroscopy of left knee Hx of knee surgery History of ankle surgery Family History Family History Father HIV (human immunodeficiency virus infection) Mother Diabetes Glaucoma Other Substance abuse Social History Social History Household Members: Unknown / Unable to assess Housing: Apartment Alcohol intake: former Patient Tobacco Use Status: Current everyday Tobacco user Cigarette Packs Per Day: 0.5 Cigarettes Per Day: 10.0 Years Smoked: 22 years e-Cigarette/Vaping Use: Never Used Advance Directives: No Advance Directives Information Provided: Yes Do you have a plan to hurt others: No Plan service: No Current occupational status: unemployed and disabled Physical Exam Vital Signs: Vital Signs: Last Vital Signs Temp 98.2 F 09/23/24 12:18 Pulse 53 09/23/24 12:18 Resp 12 09/23/24 12:18 BP 110/65 09/23/24 12:18 Pulse Ox 95 09/23/24 12:18 O2 Del Method Room Air 09/23/24 12:18 BMI result Body Mass Index 26.9 Appearance: Alert.?Oriented to person, place and time. No acute distress.?Normal affect. Eyes: Pupils equal, round and reactive to light.? ENT: TM normal bilaterally. Pharynx normal.?? Neck: Normal inspection.? Neck supple.??No cervical adenopathy CVS: Heart sounds normal. Normal heart rate and rhythm.? Pulses normal.?? Respiratory: No respiratory distress.? Lung sounds with rhonchi in the right lower lobe? Abdomen: Soft and non-tender. Normoactive bowel sounds. Skin: Skin warm and dry.? Normal skin color.? ? Extremities: No lower extremity edema.? Neuro: Moves all extremities spontaneously. Sensation intact bilaterally. No motor deficits. Ambulates with normal steady gait. Medical Decision Making Medical Decision Making [facility] Narrative: Patient is a 44-year-old male past medical history of opioid use disorder, anxiety, depression, hypertension, hepatitis-C, hepatic steatosis, HIV reportedly compliant with ART, childhood asthma presenting for evaluation of you productive cough, reproducible chest discomfort during cough and deep inspiration. On auscultation has rhonchi to the right lower lobe, chest x-ray concerning for corresponding opacity suggestive of pneumonia. COVID-19 and influenza testing negative. At this time history and physical exam not consistent with ACS/PE, PERC negative. Well-appearing, nontoxic, afebrile, no tachycardia or tachypnea/hypoxia. Speaking clear full sentences, ambulatory with steady gait. Discussed conservative treatment including rest, hydration, Tylenol/ibuprofen as needed for fever and body aches, saline nasal spray, humidifier, [id number] cold medication. Advised to follow-up with primary care provider as needed, discussed reasons to return back to the emergency department. All questions were answered. Patient discharged home in stable condition. Differential Diagnosis Differential Diagnoses: The differential diagnosis associated with the presentation includes ( See narrative above) Admission/Observation Consideration of admission/observation: Escalation of care including admission/observation considered ( see narrative above) Lab Data [facility] Lab Attestation statement: I reviewed the patient's lab results. ( see narrative above) Labs: Lab Results 09/23/24 Range/Units 10:58 Influenza Type A (PCR) NEGATIVE (Negative) Influenza Type B (PCR) NEGATIVE (Negative) RSV RNA Qual (PCR) NEGATIVE (Negative) SARS-CoV-2 RNA (RT-PCR) NEGATIVE (Negative) Independent Interpretation I performed an independent interpretation of an: Plain X-Ray (See narrative above) Radiology Impression Discussion of test interpretation with radiology: I have reviewed the radiologist's reading. Radiologist Impression: XR/XR chest 1V IMPRESSION: 1. Patchy right basilar opacity suspect for pneumonia in the appropriate clinical setting. External Record Review External record reviewed: Outpatient record Prescription Management I considered prescription management with: Pain Medication ( acetaminophen/ibuprofen) and Antibiotic Chronic Conditions Patient?s care impacted by: Other (See narrative above) Discharge Plan Discharge Clinical Impression: Pneumonia Qualifiers: Pneumonia type: due to unspecified organism Laterality: right Lung location: lower lobe of lung Qualified Code(s): J18.9 - Pneumonia, unspecified organism Patient Disposition: Home, Self-Care Instructions: Pneumonia (ED) Prescriptions: New amoxicillin-pot clavulanate 875-125 mg tablet 1 tab PO BID Qty: 10 0RF azithromycin 250 mg tablet See Rx Instructions .ROUTE .COMPLEX Qty: 6 0RF Rx Instructions: For 250 mg dose pack: take 500 mg today (day 1), then 250 mg for 4 days (days 2-5) No Action lidocaine 4 % cream 1 appl topical TID PRN (Reason: pain) 30 Days Qty: 50 2RF Rx Instructions: as needed Externally Three times a day (DME) blood-glucose meter [FreeStyle Lite Meter] Kit See Rx Instructions .ROUTE .MEDSUPPLY Qty: 1 0RF Rx Instructions: TEST 2 TIMES DAILY hydrochlorothiazide 12.5 mg tablet 12.5 mg PO DAILY 30 Days Qty: 30 1RF diclofenac sodium 75 mg tablet,delayed release (DR/EC) 75 mg PO BID PRN (Reason: for pain) Qty: 30 0RF gabapentin 300 mg capsule 300 mg PO TID Qty: 90 2RF (DME) FreeStyle Lite Strips Strip See Rx Instructions .ROUTE .COMPLEX Qty: 100 5RF Dose Instruction: USE ONE STRIP TO TEST BLOOD GLUCOSE TWO TIMES A DAY Rx Instructions: USE ONE STRIP TO TEST BLOOD GLUCOSE TWO TIMES A DAY sertraline 100 mg tablet 100 mg PO DAILY Qty: 30 0RF (DME) lancets [FreeStyle Lancets] 28 gauge misc See Rx Instructions .ROUTE .COMPLEX Qty: 100 12RF Dose Instruction: USE TWO TIMES A DAY Rx Instructions: USE TWO TIMES A DAY (DME) free style lancets See Rx Instructions .Route .MEDSUPPLY Qty: 1 0RF Rx Instructions: As directed Tivicay 50 mg tablet 1 tab PO DAILY Descovy 200-25 mg tablet 1 tab PO DAILY Interventions: ED Discharge Assessment Last Done: 09/23/24 12:18 Discharge Date/Time: 09/23/24 12:18 Print Language: Persian
[2024-09-23 11:45] LABS: Resp Syncy Virus RNA Qual PCR NEGATIVE (Negative); SARS COV2 PCR INHOUSE NEGATIVE (Negative)
[2024-09-23 12:00] VITALS: BP 110/65; PULSE 53; RESP 12; TEMP 36.8; O2SAT 95
[2024-09-23 12:18] VITALS: BP 110/65; PULSE 53; RESP 12; TEMP 36.8; O2SAT 95
== END 2024-09-23 12:18 | disposition home or self-care (01) ==
PROVIDERS: Emergency Provider Emergency Medicine; PCP Internal Medicine
DX: J18.9 Pneumonia, unspecified organism (principal); F17.210 Nicotine dependence, cigarettes, uncomplicated; R05.9 Cough, unspecified; Z03.818 Encounter for observation for suspected exposure to other biological agents ruled out
CPT/HCPCS: 71045; 87637; 99283